=== PATIENT | female | born 1970 | race African-American/Black ===

== ENCOUNTER → 2020-08-08 14:35 | Outpatient (BNVA) | payer OTHER, SELFPAY | PROVIDERS: Visit Provider Physician Assistant | DX: Z76.89 Persons encountering health services in other specified circumstances (principal) ==

== ENCOUNTER → 2020-09-06 16:09 | Outpatient (BNVA) | payer OTHER, SELFPAY | PROVIDERS: Visit Provider Surgery | DX: Z76.89 Persons encountering health services in other specified circumstances (principal) ==

== ENCOUNTER → 2020-09-11 14:08 | Outpatient (BNVA) | payer OTHER, SELFPAY | PROVIDERS: Visit Provider Dietitian, Registered | DX: Z76.89 Persons encountering health services in other specified circumstances (principal) ==

== ENCOUNTER 2020-09-15 08:56 | Outpatient (REF) | payer OTHER, SELFPAY ==
--- NOTE | 2020-09-15 09:00 | MM_ITS ---
EXAMINATION: MM SCREENING DIGITAL BREAST TOMOSYNTHESIS, BILATERAL CLINICAL INFORMATION: Screening. Asymptomatic. Anterior left biopsy 2016. The lifetime risk of breast cancer based on the Tyrer-Cuzick Model is 16%. COMPARISON: Mammography: 09/10/2019, 08/17/2018; right breast ultrasound 08/26/2018 TECHNIQUE: Digital breast tomosynthesis is performed in both the craniocaudal and mediolateral oblique views along with computer-aided detection (CAD). Synthesized 2D images are generated from the tomosynthesis. FINDINGS: There are scattered areas of fibroglandular density (ACR BI-RADS breast composition Category b). Parenchymal pattern is similar to prior exams. There is stable nodular asymmetry mid upper outer left breast and smaller stable nodule lower inner right breast. Neither breast shows interval mass or architectural abnormality. No abnormal calcifications. The axilla and skin contours are unremarkable. MM/MM tomosynthesis screening BI IMPRESSION: No mammographic evidence of malignancy. ASSESSMENT: BI-RADS 2: Benign RECOMMENDATION: Routine annual mammography screening. This patient's information was entered into a reminder system with a target due date for their next mammogram.
== END 2020-09-15 08:57 | disposition home or self-care (01) ==
LOC: HO.MAMMO 08:56
PROVIDERS: Visit Provider Obstetrics & Gynecology
DX: Z12.31 Encounter for screening mammogram for malignant neoplasm of breast (principal)
CPT/HCPCS: 77063; 77067

== ENCOUNTER → 2020-09-18 11:21 | Outpatient (BNVA) | payer OTHER, SELFPAY | PROVIDERS: Visit Provider Dietitian, Registered ==

== ENCOUNTER 2020-10-05 06:27 | Day surgery (SDC) | payer OTHER, SELFPAY ==
[2020-09-28 13:13] VITALS: BMI 32.5
--- NOTE | 2020-10-03 14:11 | HO.ANESPROP2 ---
Documented by User: Regina Andre 10/03/20 14:11 HPI - Anesthesia Eval Consult details Narrative: 50yo F for Colonoscopy PMFSH Past Medical History Medical History Arthritis Asthma Colon cancer screening History of anemia Hypertension Intestinal malabsorption following gastrectomy Obesity (BMI 30-39.9) Family History Family History Father No problems noted. Mother Sarcocystosis Afib Sister No problems noted. Sister No problems noted. Son No problems noted. Daughter No problems noted. Daughter No problems noted. Daughter No problems noted. Maternal Grandmother History of ovarian cancer Surgical History Surgical History History of breast lump/mass excision History of sleeve gastrectomy History of vocal cord polypectomy Hx of appendectomy Hx of knee surgery Hx of tonsillectomy Social History Social History Are you a primary technical healthcare consultant to a significant other at home: No Do you presently have visiting nurse or other home services: No Alcohol intake: never Smoking Status: Never smoker Use of substances other than those prescribed or required for medical reasons: No Have you been hit, kicked, punched, or otherwise hurt by someone within the past year? If so, by whom?: No Advance Directives: No Advance Directives Information Provided: No Advance Directives on File: No Recently lost weight without trying: No Meds Allergies Allergy/AdvReac Type Severity Reaction Status Date / Time SHALONDA Inhibitors Allergy Severe ANAPHYLAXIS Verified 10/05/20 06:34 [SHALONDA INHIBITORS] lisinopril Allergy Unknown Anaphylaxis Verified 08/08/20 15:02 Home Medications Medication Instructions Recorded Confirmed Type acetaminophen 325 mg capsule 325 mg PO QID PRN 08/01/20 09/28/20 History bumetanide 1 mg tablet 1 mg PO DAILY 08/01/20 09/28/20 History calcium carbonate 600 mg calcium 600 mg PO BID 08/01/20 09/28/20 History (1,500 mg) tablet levonorgestrel 20 mcg/24 hours (6 INTRAUTERINE 08/01/20 09/06/20 History yrs) 52 mg intrauterine device mecobalamin (vitamin B12) 1,000 1,000 mcg PO DAILY 08/01/20 09/28/20 History mcg chewable tablet methylcellulose (laxative) 500 mg 500 mg PO BID 08/01/20 09/28/20 History tablet sfosifix-tyl-adeko ac 400 1 tab PO DAILY 09/06/20 09/28/20 History mcg-calcium carb 500 mg-vit K1 20 mcg tablet albuterol sulfate 1 puff INHALATION Q4-6H PRN 09/28/20 09/28/20 History Exam Exam Date and Time: October 03, 2020 1411 Height,Weight and Vital Signs: Height 5 ft 6 in Weight 91.626 kg Assessment and Plan Assessment Anesthesia Assessment: Chart Reviewed Documented by User: Sharyn Acuña 10/05/20 07:22 [facility] Past Medical History Medical History Arthritis Asthma Colon cancer screening History of anemia Hypertension Intestinal malabsorption following gastrectomy Obesity (BMI 30-39.9) Family History Family History Father No problems noted. Mother Sarcocystosis Afib Sister No problems noted. Sister No problems noted. Son No problems noted. Daughter No problems noted. Daughter No problems noted. Daughter No problems noted. Maternal Grandmother History of ovarian cancer Surgical History Surgical History History of breast lump/mass excision History of sleeve gastrectomy History of vocal cord polypectomy Hx of appendectomy Hx of knee surgery Hx of tonsillectomy Social History Social History Are you a primary technical healthcare consultant to a significant other at home: No Do you presently have visiting nurse or other home services: No Alcohol intake: never Smoking Status: Never smoker Use of substances other than those prescribed or required for medical reasons: No Have you been hit, kicked, punched, or otherwise hurt by someone within the past year? If so, by whom?: No Advance Directives: No Advance Directives Information Provided: No Advance Directives on File: No Recently lost weight without trying: No Meds Allergies Allergy/AdvReac Type Severity Reaction Status Date / Time SHALONDA Inhibitors Allergy Severe ANAPHYLAXIS Verified 10/05/20 06:34 [SHALONDA INHIBITORS] lisinopril Allergy Unknown Anaphylaxis Verified 08/08/20 15:02 Home Medications Medication Instructions Recorded Confirmed Type acetaminophen 325 mg capsule 325 mg PO QID PRN 08/01/20 09/28/20 History bumetanide 1 mg tablet 1 mg PO DAILY 08/01/20 09/28/20 History calcium carbonate 600 mg calcium 600 mg PO BID 08/01/20 09/28/20 History (1,500 mg) tablet levonorgestrel 20 mcg/24 hours (6 INTRAUTERINE 08/01/20 09/06/20 History yrs) 52 mg intrauterine device mecobalamin (vitamin B12) 1,000 1,000 mcg PO DAILY 08/01/20 09/28/20 History mcg chewable tablet methylcellulose (laxative) 500 mg 500 mg PO BID 08/01/20 09/28/20 History tablet wdqogbql-hrg-bzyyb ac 400 1 tab PO DAILY 09/06/20 09/28/20 History mcg-calcium carb 500 mg-vit K1 20 mcg tablet albuterol sulfate 1 puff INHALATION Q4-6H PRN 09/28/20 09/28/20 History Exam Airway Mallampati Class: II Neck ROM: Full Denture: Upper Assessment and Plan Assessment Anesthesia Assessment: Anesthesia Plan Discussed and Chart Reviewed Final Anesthetic Review NPO: Yes ASA Class: II Final Preanesthetic Review: No Changes in Pt Med Stat, Meds/Allgs Chart Reviewed, Consent Obtained/Reviewed and Anes Risks/Benef Reviewed Patient Risk: Low Procedure Risk: Low Assessment/Block/Sedation in SS: Assess/Block/Sedation-SS Anesthetic Plan Anesthetic Plan: MAC: Disposition: Standard PACU
[2020-10-05 06:59] VITALS: BP 147/91; PULSE 64; RESP 16; TEMP 36.8; O2SAT 99
[2020-10-05] MEDS: Lactated Ringers 1,000 ML 100 ML IVCONT (07:12)
--- NOTE | 2020-10-05 07:22 | MHC.SHP ---
Pre-Procedural Eval Section B Chief Complaint: screening Allergies: Allergies Allergy/AdvReac Type Severity Reaction Status Date / Time SHALONDA Inhibitors Allergy Severe ANAPHYLAXIS Verified 10/05/20 06:34 [SHALONDA INHIBITORS] lisinopril Allergy Unknown Anaphylaxis Verified 08/08/20 15:02 Plan I have reviewed the history and physical and performed a pertinent physical examination on my patient. No changes have occurred unless specified.
--- NOTE | 2020-10-05 07:50 | HO.ANESPROP2 ---
[facility] Past Medical History Medical History Arthritis Asthma Colon cancer screening History of anemia Hypertension Intestinal malabsorption following gastrectomy Obesity (BMI 30-39.9) Family History Family History Father No problems noted. Mother Sarcocystosis Afib Sister No problems noted. Sister No problems noted. Son No problems noted. Daughter No problems noted. Daughter No problems noted. Daughter No problems noted. Maternal Grandmother History of ovarian cancer Surgical History Surgical History History of breast lump/mass excision History of sleeve gastrectomy History of vocal cord polypectomy Hx of appendectomy Hx of knee surgery Hx of tonsillectomy Social History Social History Are you a primary youth care worker to a significant other at home: No Do you presently have visiting nurse or other home services: No Alcohol intake: never Smoking Status: Never smoker Use of substances other than those prescribed or required for medical reasons: No Have you been hit, kicked, punched, or otherwise hurt by someone within the past year? If so, by whom?: No Advance Directives: No Advance Directives Information Provided: No Advance Directives on File: No Recently lost weight without trying: No Meds Allergies Allergy/AdvReac Type Severity Reaction Status Date / Time SHALONDA Inhibitors Allergy Severe ANAPHYLAXIS Verified 10/05/20 06:34 [SHALONDA INHIBITORS] lisinopril Allergy Unknown Anaphylaxis Verified 08/08/20 15:02 Home Medications Medication Instructions Recorded Confirmed Type acetaminophen 325 mg capsule 325 mg PO QID PRN 08/01/20 09/28/20 History bumetanide 1 mg tablet 1 mg PO DAILY 08/01/20 09/28/20 History calcium carbonate 600 mg calcium 600 mg PO BID 08/01/20 09/28/20 History (1,500 mg) tablet levonorgestrel 20 mcg/24 hours (6 INTRAUTERINE 08/01/20 09/06/20 History yrs) 52 mg intrauterine device mecobalamin (vitamin B12) 1,000 1,000 mcg PO DAILY 08/01/20 09/28/20 History mcg chewable tablet methylcellulose (laxative) 500 mg 500 mg PO BID 08/01/20 09/28/20 History tablet nmqtahaz-okx-jcwss ac 400 1 tab PO DAILY 09/06/20 09/28/20 History mcg-calcium carb 500 mg-vit K1 20 mcg tablet albuterol sulfate 1 puff INHALATION Q4-6H PRN 09/28/20 09/28/20 History Exam Exam Date and Time: October 05, 2020 0750 Height,Weight and Vital Signs: Height 5 ft 6 in Weight 91.626 kg Last Vital Signs Temp 98.2 F 10/05/20 06:59 Pulse 64 10/05/20 06:59 Resp 16 10/05/20 06:59 BP 147/91 H 10/05/20 06:59 Pulse Ox 99 10/05/20 06:59 Airway Mallampati Class: II TM Dist: >3cm Neck ROM: Full Assessment and Plan Assessment Anesthesia Assessment: Anesthesia Plan Discussed and Chart Reviewed Final Anesthetic Review NPO: Yes ASA Class: III Final Preanesthetic Review: No Changes in Pt Med Stat, Meds/Allgs Chart Reviewed, Consent Obtained/Reviewed and Anes Risks/Benef Reviewed Patient Risk: Intermediate Procedure Risk: Low Assessment/Block/Sedation in SS: Assess/Block/Sedation-SS Anesthetic Plan Anesthetic Plan: MAC: Disposition: Standard PACU
[2020-10-05 07:57] VITALS: BP 132/80; PULSE 65; RESP 16; TEMP 36.2; O2SAT 100
--- NOTE | 2020-10-05 07:57 | PM.OP ---
Brief Operative Note Date of Service: 10/05/20 Pre-op diagnosis: COLON CA SCREEN Post-op diagnosis: other (HEMORRHOIDS) Procedure: colonoscopy Surgeon: Dustin Nicolas MD Anesthesia: MAC Estimated blood loss (mL): 0 Condition: stable Disposition: PACU
--- NOTE | 2020-10-05 07:57 | W.PM.OPN ---
Operative Note Operative Note Date of Service: 10/05/20 Narrative: PROCEDURE: COLONOSCOPY PREOP DIAGNOSIS: COLON CANCER SCREENING POSTOP DIAGNOSIS: HEMORRHOIDS, OTHERWISE NORMAL COLONOSCOPY FINDINGS SURGEON: KAE TRAVIS MD The patient is a 50-year-old female for screening colonoscopy. She had understood the technique the procedure. She was aware of the risks, benefits and alternatives She was brought to the operating room and placed in left lateral decubitus position under monitored anesthesia care. A surgical time-out was done. A full digital rectal was done. There were no palpable anal lesions. The tip of the Olympus colonoscope was gently introduced through the anal orifice and advanced with insufflation all the way to the cecum. The cecum was intubated. The cecum was identified by visualization of the ileocecal valve as well as the appendiceal orifice. The cecal mucosa was unremarkable. The scope was gradually withdrawn with careful examination of the entire colonic mucosa being done with scope withdrawal. The patient had good bowel prep so it was unlikely that any lesion may have been missed. The rectum was reached and there were no lesions seen. The anal canal was unremarkable. She did have external hemorrhoids which were prominent The scope was then withdrawn completely with desufflation. The patient tolerated the procedure well. There were no immediate complications noted. Estimated blood loss was 0. She falls at average risk for colon cancer so her next colonoscopy may be in the next 10 years.
--- NOTE | 2020-10-05 08:08 | PC.NURSE ---
0800 AWAKE ALERT SIT UPRIGHT START PO FLUIDS
[2020-10-05 08:12] VITALS: BP 162/90; PULSE 60; RESP 16; O2SAT 100
--- NOTE | 2020-10-05 08:35 | HO.POSTANES ---
Post Anesthesia Evaluation Post Anesthesia Evaluation Vital Signs: Vital Signs Temp Pulse Resp BP Pulse Ox 10/05/20 08:12 60 16 162/90 H 100 10/05/20 07:57 97.1 F 65 16 132/80 100 10/05/20 06:59 98.2 F 64 16 147/91 H 99 Anesthesia: Monitored Mental Status: Awake Pain Control: Satisfactory Nausea/Vomiting: None Hydration: Adequate Anesthesia-Related Issues: No Anes. Related Issues
== END 2020-10-05 08:42 | disposition home or self-care (01) ==
PROVIDERS: Visit Provider Surgery
PROC: 0DJD8ZZ Inspection of Lower Intestinal Tract, Via Natural or Artificial Opening Endoscopic (ICD-10-PCS; CPT 45378; principal; 2020-10-05 08:30)
DX: Z12.11 Encounter for screening for malignant neoplasm of colon (principal); K64.4 Residual hemorrhoidal skin tags; I10 Essential (primary) hypertension; Z79.899 Other long term (current) drug therapy; Z88.8 Allergy status to other drugs, medicaments and biological substances; Z90.3 Acquired absence of stomach [part of]
CPT/HCPCS: 45378

== ENCOUNTER → 2020-10-16 08:28 | Outpatient (BNVA) | payer OTHER, SELFPAY | PROVIDERS: Visit Provider Dietitian, Registered ==

== ENCOUNTER → 2020-10-18 13:50 | Outpatient (BNVA) | payer OTHER, SELFPAY | PROVIDERS: PCP Internal Medicine; Visit Provider Surgery ==

== ENCOUNTER 2020-11-03 09:57 | Outpatient (REF) | payer OTHER, SELFPAY ==
[2020-11-03 10:49] LABS: MANUAL DIFF FLAG NO
[2020-11-03 11:09] LABS: Basophils Percent Auto 0.3 % (0-2); Eosinophils Absolute Auto 0.2 X10*3/uL (0.0-0.4); Eosinophils Percent Auto 4.5 % (0-4); Hematocrit 32.9 % (37-47); Hemoglobin 10.6 g/dl (12.0-16.0); Imm Gran Abs Auto 0.01 X10*3/uL (0.00-0.03); Imm Gran Pct Auto 0.3 % (0.0-0.4); Lymphocytes Absolute Auto 1.4 X10*3/uL (1.2-4.9); Mean Corpuscular HGB Conc 32.2 g/dl (31.0-35.0); Mean Corpuscular Hemoglobin 30.2 pg (27.0-33.0); Mean Corpuscular Volume 93.7 fL (80-98); Mean Platelet Volume 10.4 fL (9.4-12.3); Monocytes Absolute Auto 0.2 X10*3/uL (0.1-1.2); Monocytes Percent Auto 6.3 % (2-11); Neutrophils Percent Auto 52.6 % (45-73); Platelet Count 160 X10*3/uL (160-400); Red Blood Count 3.51 X10*6/uL (4.20-5.50); Red Cell Distribution Width 11.6 % (11.0-16.0); White Blood Count 3.8 X10*3/uL (4.8-10.8)
[2020-11-03 11:11] LABS: Estimated Average Glucose 105 mg/dL; Hemoglobin A1c % 5.3 %
[2020-11-03 11:46] LABS: Alanine Aminotransferase 13 U/L (0-31); Alkaline Phosphatase 57 U/L (39-117); Anion Gap 11 (12-20); Aspartate Amino Transferase 21 U/L (5-31); Bilirubin Total 0.5 mg/dL (0.0-1.0); Blood Urea Nitrogen 15 mg/dL (9-16); C Reactive Protein 0.57 mg/dL (< or = 0.50); Calcium 9.3 mg/dL (8.4-10.2); Carbon Dioxide 29 mmol/L (22-29); Chloride 107 mmol/L (96-108); Cholesterol 167 mg/dL; Estimated Glomerular Filt Rate > 60; Glucose Fasting 80 mg/dL (60-99); HDL Cholesterol 55 mg/dL; Iron 85 mcg/dL (30-160); LDL Cholesterol Calculated 102 mg/dl; Percent Iron Saturation 29 % (15-50); Potassium 4.3 mmol/L (3.3-5.1); Sodium 143 mmol/L (135-145); Total Iron Binding Capacity 291 mcg/dL (228-428); Total Protein 8.1 g/dL (6.5-8.0); Triglycerides 52 mg/dL; Unsaturated Iron Binding 206 ug/dL
[2020-11-03 11:48] LABS: Ferritin 153 ng/mL (10-250); TSH reflex Free T4 0.72 uIU/mL (0.32-4.0)
[2020-11-05 04:46] LABS: Folate 19.3 ng/mL (> or = 4.0); Vitamin B12 997 pg/mL (200-900)
[2020-11-05 16:12] LABS: Calcium (PTHI) 9.8 mg/dL (8.6-10.4); PTHI 25 pg/mL (14-64)
[2020-11-05 22:07] LABS: Insulin Level Total 5.3 uIU/mL
[2020-11-06 05:12] LABS: Zinc 66 mcg/dL (60-130)
[2020-11-07 17:47] LABS: Vitamin A 43 mcg/dL (38-98)
[2020-11-11 12:57] LABS: Vitamin B1 13 nmol/L (8-30)
== END 2020-11-03 09:58 | disposition home or self-care (01) ==
LOC: HO.LAB 09:57
PROVIDERS: PCP Internal Medicine; Visit Provider Physician Assistant
DX: K91.2 Postsurgical malabsorption, not elsewhere classified (principal); E66.01 Morbid (severe) obesity due to excess calories; Z90.3 Acquired absence of stomach [part of]
CPT/HCPCS: 36415; 80053; 80061; 82306; 82607; 82728; 82746; 83036; 83525; 83540; 83970; 84425; 84443; 84590; 84630; 85025; 86140

== ENCOUNTER → 2020-11-06 08:23 | Outpatient (BNVA) | payer OTHER, SELFPAY | PROVIDERS: PCP Internal Medicine; Visit Provider Surgery ==

== ENCOUNTER 2020-11-19 11:36 | Outpatient (REF) | payer OTHER, SELFPAY ==
[2020-11-19 12:00] LABS: MANUAL DIFF FLAG NO
[2020-11-19 12:06] LABS: Basophils Percent Auto 0.3 % (0-2); Eosinophils Absolute Auto 0.1 X10*3/uL (0.0-0.4); Eosinophils Percent Auto 3.5 % (0-4); Hemoglobin 10.4 g/dl (12.0-16.0); Imm Gran Abs Auto 0.01 X10*3/uL (0.00-0.03); Imm Gran Pct Auto 0.3 % (0.0-0.4); Lymphocytes Absolute Auto 1.4 X10*3/uL (1.2-4.9); Mean Corpuscular HGB Conc 31.5 g/dl (31.0-35.0); Mean Corpuscular Hemoglobin 29.6 pg (27.0-33.0); Mean Platelet Volume 10.6 fL (9.4-12.3); Monocytes Absolute Auto 0.3 X10*3/uL (0.1-1.2); Monocytes Percent Auto 8.4 % (2-11); Neutrophils Absolute Auto 1.3 X10*3/uL (2.0-8.3); Neutrophils Percent Auto 41.5 % (45-73); Platelet Count 139 X10*3/uL (160-400); Red Blood Count 3.51 X10*6/uL (4.20-5.50); Red Cell Distribution Width 11.9 % (11.0-16.0); White Blood Count 3.1 X10*3/uL (4.8-10.8)
[2020-11-19 12:34] LABS: Alanine Aminotransferase 13 U/L (0-31); Albumin Level 3.9 g/dL (3.5-5.0); Alkaline Phosphatase 51 U/L (39-117); Anion Gap 11 (12-20); Aspartate Amino Transferase 19 U/L (5-31); Bilirubin Total 0.4 mg/dL (0.0-1.0); Blood Urea Nitrogen 14 mg/dL (9-16); Calcium 9.3 mg/dL (8.4-10.2); Carbon Dioxide 29 mmol/L (22-29); Chloride 109 mmol/L (96-108); Cholesterol 174 mg/dL; Estimated Glomerular Filt Rate > 60; Glucose Fasting 80 mg/dL (60-99); HDL Cholesterol 55 mg/dL; LDL Cholesterol Calculated 111 mg/dl; Potassium 4.5 mmol/L (3.3-5.1); Sodium 144 mmol/L (135-145); Total Protein 7.7 g/dL (6.5-8.0); Triglycerides 44 mg/dL
== END 2020-11-19 11:37 | disposition home or self-care (01) ==
LOC: HO.LAB 11:36
PROVIDERS: PCP Internal Medicine; Visit Provider Nurse Practitioner Family
DX: I10 Essential (primary) hypertension (principal)
CPT/HCPCS: 36415; 80053; 80061; 85025

== ENCOUNTER 2020-11-22 14:36 | Outpatient (REF) | payer OTHER, SELFPAY ==
--- NOTE | ~2020-11-22 | XR_ITS ---
EXAMINATION: XR CERVICAL SPINE XR LUMBAR SPINE CLINICAL INFORMATION: Low back pain. COMPARISON: None TECHNIQUE: 3 views lumbar spine and 3 views cervical spine. FINDINGS: LUMBAR SPINE: There is maintained lumbar lordosis. There is likely positional levoscoliosis. The vertebral heights, alignment and disc heights are normal. There is no visible acute fracture, dislocation or lytic process. The SI joints are symmetrical. Incidentally noted is an IUD in the pelvis. The soft tissues are normal. CERVICAL SPINE: There is maintained cervical lordosis. The vertebral heights, alignment and disc heights are normal. No visible acute fracture, dislocation or lytic process seen. The prevertebral soft tissues are normal. XR/XR cervical spine 2V IMPRESSION: Unremarkable lumbar spine exam except for positional levoscoliosis. Unremarkable cervical spine exam.
--- NOTE | ~2020-11-22 | XR_ITS ---
EXAMINATION: XR CERVICAL SPINE XR LUMBAR SPINE CLINICAL INFORMATION: Low back pain. COMPARISON: None TECHNIQUE: 3 views lumbar spine and 3 views cervical spine. FINDINGS: LUMBAR SPINE: There is maintained lumbar lordosis. There is likely positional levoscoliosis. The vertebral heights, alignment and disc heights are normal. There is no visible acute fracture, dislocation or lytic process. The SI joints are symmetrical. Incidentally noted is an IUD in the pelvis. The soft tissues are normal. CERVICAL SPINE: There is maintained cervical lordosis. The vertebral heights, alignment and disc heights are normal. No visible acute fracture, dislocation or lytic process seen. The prevertebral soft tissues are normal. XR/XR lumbar spine 2-3V IMPRESSION: Unremarkable lumbar spine exam except for positional levoscoliosis. Unremarkable cervical spine exam.
== END 2020-11-22 14:37 | disposition home or self-care (01) ==
LOC: HO.XRAY 14:36
PROVIDERS: PCP Internal Medicine; Visit Provider Nurse Practitioner Family
DX: S16.1XXA Strain of muscle, fascia and tendon at neck level, initial encounter (principal); M54.5 Low back pain
CPT/HCPCS: 72040; 72100

== ENCOUNTER 2020-12-14 15:55 | Outpatient (REF) | payer OTHER, SELFPAY ==
--- NOTE | ~2020-12-14 | CT_ITS ---
EXAMINATION: CT CHEST WITHOUT CONTRAST CLINICAL INFORMATION: Solitary pulmonary nodule. COMPARISON: Chest x-ray 08/30/2018 TECHNIQUE: Multidetector volumetric CT imaging of the chest was done. Axial MIP volume rendering provided. Sagittal and coronal reformatted images were obtained. This CT examination was performed using dose optimization techniques as appropriate, variously including the following: *Automated exposure control *Adjustment of mA and/or kV according to patient size (this includes techniques or standardized protocols for targeted exams where dose is matched to indication/reason for exam; i.e. extremities or head) *Use of iterative reconstruction technique DLP: 183 mGy-cm FINDINGS: ELA TEACHER: Unremarkable. LUNGS: The lungs are well-expanded and clear. There is a 4 mm nodule right lower lobe superior segment axial image 31/4, 2 mm calcified nodule left lower lobe superior segment image 31/4, 2 mm and a 1 mm fissural nodule right major fissure axial image 264/6. MEDIASTINUM: The thyroid lobes are symmetric and normal. The central trachea and bronchi are widely patent. The heart size and the great vessels are normal caliber. There is no pericardial effusion. No abnormal size mediastinal or hilar lymph nodes seen. PLEURA: There is no pleural effusion. No pleural mass or thickening. AXILLA: There are small bilateral axillary lymph nodes. The chest wall is unremarkable. UPPER ABDOMEN: Visualized liver, spleen, pancreas, and bilateral adrenal glands are unremarkable. Post gastric reduction surgical changes are noted. OSSEOUS STRUCTURES: There are no lytic or sclerotic processes seen. There is mild spondylosis throughout the lumbar spine. CT/CT chest wo con IMPRESSION: Calcified and noncalcified nodules, as described above, the largest measuring 4 mm. There are intrafissural right-sided lymph nodes. If there are no clinical risk factors, no followup is needed. If patient has high clinical risk factors, a followup in 12 months can be performed.
== END 2020-12-14 15:56 | disposition home or self-care (01) ==
LOC: HO.CT 15:55
PROVIDERS: PCP Internal Medicine; Visit Provider Internal Medicine
DX: R91.1 Solitary pulmonary nodule (principal)
CPT/HCPCS: 71250

== ENCOUNTER 2021-07-01 14:35 | Outpatient (REF) | payer OTHER, SELFPAY ==
--- NOTE | ~2021-07-01 | US_ITS ---
EXAMINATION: US ABDOMEN COMPLETE CLINICAL INFORMATION: Right upper quadrant abdominal pain. COMPARISON: CT chest 12/14/2020. Ultrasound abdomen complete with elastography 05/18/2018 TECHNIQUE: Real-time imaging of the abdominal viscera. FINDINGS: PANCREAS: Normal. ABDOMINAL AORTA: The proximal, mid, and distal segments are normal in caliber. INFERIOR VENA CAVA: Visualized portions are normal. LIVER: Normal. The liver is normal in size. The liver contour is normal. Parenchymal echogenicity is normal. No focal hepatic lesion. There is no intrahepatic biliary duct dilatation seen. GALLBLADDER: There is some tenderness to palpation overlying the gallbladder during the study. The gallbladder is physiologically distended without evidence of stones, sludge, polyps, wall thickening or pericholecystic fluid. COMMON BILE DUCT: Normal in caliber measuring 0.40 cm in diameter. RIGHT KIDNEY: Normal. No hydronephrosis. No renal calculi or focal parenchymal lesions. The kidney measures 10.6 cm in maximum dimension. LEFT KIDNEY: Normal. No hydronephrosis. No renal calculi or focal parenchymal lesions. The kidney measures 11.2 cm in maximum dimension. SPLEEN: Normal. The spleen measures 9.6 cm in maximum dimension. FREE FLUID: None. US/US abdomen complete IMPRESSION: Tenderness to palpation overlying the gallbladder however no specific ultrasound findings to suggest acute cholecystitis.
== END 2021-07-01 14:36 | disposition home or self-care (01) ==
LOC: HO.HMGCX 14:35
PROVIDERS: PCP Internal Medicine; Visit Provider Internal Medicine
DX: R79.89 Other specified abnormal findings of blood chemistry (principal); R10.11 Right upper quadrant pain
CPT/HCPCS: 76700

== ENCOUNTER 2021-09-21 09:41 | Outpatient (REF) | payer OTHER, SELFPAY ==
--- NOTE | ~2021-09-21 | MM_ITS ---
EXAMINATION: MM SCREENING DIGITAL BREAST TOMOSYNTHESIS, BILATERAL CLINICAL INFORMATION: Screening. Asymptomatic. The lifetime risk of breast cancer based on the Tyrer-Cuzick Model is 7%. COMPARISON: Mammography: 09/15/2020, 09/10/2019, 08/17/2018 TECHNIQUE: Digital breast tomosynthesis is performed in both the craniocaudal and mediolateral oblique views along with computer-aided detection (CAD). Synthesized 2D images are generated from the tomosynthesis. FINDINGS: There are scattered areas of fibroglandular density (ACR BI-RADS breast composition Category b). There are no significant masses, abnormal calcifications, or other abnormalities. Again, there is stable oval focal nodular asymmetry left breast mid upper outer quadrant and stable nodularity central inner right breast. No developing density. The axilla and skin contours are unremarkable. No significant changes from prior exams. MM/MM tomosynthesis screening BI IMPRESSION: No significant changes from prior exams. ASSESSMENT: BI-RADS 2: Benign RECOMMENDATION: Routine annual mammography screening. This patient's information was entered into a reminder system with a target due date for their next mammogram.
== END 2021-09-21 09:42 | disposition home or self-care (01) ==
LOC: HO.MAMMO 09:41
PROVIDERS: Visit Provider Obstetrics & Gynecology
DX: Z12.31 Encounter for screening mammogram for malignant neoplasm of breast (principal)
CPT/HCPCS: 77063; 77067

== ENCOUNTER 2021-12-07 09:25 | Outpatient (REF) | payer OTHER, SELFPAY ==
[2021-12-07 09:56] LABS: Hematocrit 32.5 % (37.0-47.0); Hemoglobin 10.3 g/dl (12.0-16.0); Mean Corpuscular HGB Conc 31.7 g/dl (31.0-35.0); Mean Corpuscular Hemoglobin 29.2 pg (27.0-33.0); Mean Corpuscular Volume 92.1 fL (80.0-98.0); Platelet Count 152 X10*3/uL (160-400); Red Blood Count 3.53 X10*6/uL (4.20-5.50); Red Cell Distribution Width 12.6 % (11.0-16.0); White Blood Count 3.3 X10*3/uL (4.8-10.8)
[2021-12-07 10:30] LABS: Alanine Aminotransferase 15 U/L (0-31); Alkaline Phosphatase 62 U/L (39-117); Anion Gap 10 (12-20); Aspartate Amino Transferase 19 U/L (5-31); Bilirubin Direct 0.2 mg/dL (0.0-0.5); Bilirubin Total 0.4 mg/dL (0.0-1.0); Blood Urea Nitrogen 17 mg/dL (9-16); Calcium 9.2 mg/dL (8.4-10.2); Carbon Dioxide 26 mmol/L (22-29); Chloride 108 mmol/L (96-108); Cholesterol 188 mg/dL; Estimated Glomerular Filt Rate > 60; Glucose Random 77 mg/dL (60-115); HDL Cholesterol 54 mg/dL; LDL Cholesterol Calculated 125 mg/dl; Sodium 140 mmol/L (135-145); Total Protein 7.9 g/dL (6.5-8.0); Triglycerides 45 mg/dL
[2021-12-07 10:37] LABS: Appearance Urine CLEAR; Color Urine YELLOW; Glucose Urine UA NEG (NEG); Leukocyte Esterase Urine NEG (NEG); Nitrite Urine NEG (NEG); Specific Gravity - Urine 1.015 (1.005-1.025); Urine Blood NEG (NEG); Urine Ketones NEG (NEG); Urine Protein TRACE MG/DL (NEG-TRACE)
[2021-12-07 10:53] LABS: Thyroid Stimulating Hormone 0.89 uIU/mL (0.32-4.0)
== END 2021-12-07 09:26 | disposition home or self-care (01) ==
LOC: HO.LAB 09:25
PROVIDERS: PCP Internal Medicine; Visit Provider Internal Medicine
DX: I10 Essential (primary) hypertension (principal)
CPT/HCPCS: 36415; 80048; 80061; 80076; 81003; 84443; 85027

== ENCOUNTER 2022-08-07 15:44 | Outpatient (REF) | payer OTHER, SELFPAY ==
[2022-08-07 16:55] LABS: Influenza A PCR NEGATIVE (Negative); Influenza B PCR NEGATIVE (Negative); Resp Syncy Virus RNA Qual PCR NEGATIVE (Negative); SARS COV2 PCR INHOUSE NEGATIVE (Negative)
== END 2022-08-07 15:45 | disposition home or self-care (01) ==
LOC: HO.LAB 15:44
PROVIDERS: Visit Provider Internal Medicine
DX: Z20.822 Contact with and (suspected) exposure to COVID-19 (principal); R43.9 Unspecified disturbances of smell and taste; I10 Essential (primary) hypertension
CPT/HCPCS: 0241U

== ENCOUNTER 2022-09-27 09:51 | Outpatient (REF) | payer OTHER, SELFPAY ==
--- NOTE | ~2022-09-27 | MM_ITS ---
EXAMINATION: MM SCREENING DIGITAL BREAST TOMOSYNTHESIS, BILATERAL CLINICAL INFORMATION: Screening. Asymptomatic. The lifetime risk of breast cancer based on the Tyrer-Cuzick Model is 8%. COMPARISON: Mammography: 09/21/2021, 09/15/2020, 09/10/2019, 08/17/2018 TECHNIQUE: Digital breast tomosynthesis is performed in both the craniocaudal and mediolateral oblique views along with computer-aided detection (CAD). Synthesized 2D images are generated from the tomosynthesis. FINDINGS: There are scattered areas of fibroglandular density (ACR BI-RADS breast composition Category b). There are scattered round and oval asymmetries similar to prior studies. There is no developing density or architectural abnormality. There are scattered bilateral coarse and dermal calcifications. Tightly grouped punctate round calcifications and a small stable nodule again seen posterior central 6:00 left breast. The axilla and skin contours are unremarkable. No significant changes. MM/MM tomosynthesis screening BI IMPRESSION: No significant changes from prior exam. ASSESSMENT: BI-RADS 2: Benign RECOMMENDATION: Routine annual mammography screening. This patient's information was entered into a reminder system with a target due date for their next mammogram.
[2022-09-27 10:39] LABS: Hematocrit 33.9 % (37.0-47.0); Hemoglobin 10.6 g/dl (12.0-16.0); Mean Corpuscular HGB Conc 31.3 g/dl (31.0-35.0); Mean Corpuscular Hemoglobin 28.8 pg (27.0-33.0); Mean Corpuscular Volume 92.1 fL (80.0-98.0); Platelet Count 161 X10*3/uL (160-400); Red Blood Count 3.68 X10*6/uL (4.20-5.50); Red Cell Distribution Width 12.7 % (11.0-16.0)
[2022-09-27 11:35] LABS: Alanine Aminotransferase 12 U/L (0-31); Albumin Level 3.9 g/dL (3.5-5.0); Alkaline Phosphatase 72 U/L (39-117); Anion Gap 9 (12-20); Aspartate Amino Transferase 19 U/L (5-31); Bilirubin Direct < 0.2 mg/dL (0.0-0.5); Bilirubin Total 0.4 mg/dL (0.0-1.0); Blood Urea Nitrogen 12 mg/dL (9-16); Calcium 9.3 mg/dL (8.4-10.2); Carbon Dioxide 27 mmol/L (22-29); Chloride 110 mmol/L (96-108); Cholesterol 183 mg/dL; Estimated Glomerular Filt Rate > 60; Glucose Random 81 mg/dL (60-115); HDL Cholesterol 49 mg/dL; LDL Cholesterol Calculated 123 mg/dl; Potassium 3.9 mmol/L (3.3-5.1); Sodium 142 mmol/L (135-145); Total Protein 7.8 g/dL (6.5-8.0); Triglycerides 58 mg/dL
== END 2022-09-27 09:52 | disposition home or self-care (01) ==
LOC: HO.MAMMO 09:51
PROVIDERS: PCP Internal Medicine; Visit Provider Internal Medicine
DX: Z12.31 Encounter for screening mammogram for malignant neoplasm of breast (principal); I10 Essential (primary) hypertension
CPT/HCPCS: 36415; 77063; 77067; 80048; 80061; 80076; 85027

== ENCOUNTER 2023-02-26 15:19 | Outpatient (AMB) | payer OTHER, SELFPAY ==
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
[2023-02-26 15:34] VITALS: BP 130/80; PULSE 83; O2SAT 98; BMI 37.3
== END 2023-02-26 16:12 | disposition home or self-care (01) ==
PROVIDERS: PCP Internal Medicine; Visit Provider Internal Medicine
DX: Z00.00 Encounter for general adult medical examination without abnormal findings (principal)
CPT/HCPCS: 99396

== ENCOUNTER 2023-05-21 15:04 | Outpatient (AMB) | payer OTHER, SELFPAY ==
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
[2023-05-21 15:11] VITALS: BP 124/72; PULSE 62; O2SAT 99; BMI 36.7
== END 2023-05-21 15:58 | disposition home or self-care (01) ==
PROVIDERS: Visit Provider Internal Medicine
DX: I10 Essential (primary) hypertension (principal)
CPT/HCPCS: 99214

== ENCOUNTER 2023-07-31 08:27 | Outpatient (AMB) | payer OTHER, SELFPAY ==
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
[2023-07-31 08:46] VITALS: BP 150/65; PULSE 74; TEMP 36.4; O2SAT 99; BMI 36.4
== END 2023-07-31 09:10 | disposition home or self-care (01) ==
PROVIDERS: PCP Internal Medicine; Visit Provider Physician Assistant
DX: E66.01 Morbid (severe) obesity due to excess calories (principal); I10 Essential (primary) hypertension
CPT/HCPCS: 99214

== ENCOUNTER → 2023-07-31 08:27 | Outpatient (BNVA) | payer OTHER, SELFPAY | PROVIDERS: PCP Internal Medicine; Visit Provider Physician Assistant ==

== ENCOUNTER 2023-08-14 10:00 | Outpatient (AMB) | payer OTHER, SELFPAY ==
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
[2023-08-14 10:26] VITALS: BMI 36.5
== END 2023-08-14 10:40 | disposition home or self-care (01) ==
LOC: HO.HBS 10:12
PROVIDERS: PCP Internal Medicine; Visit Provider Physician Assistant
DX: E66.01 Morbid (severe) obesity due to excess calories (principal); Z90.3 Acquired absence of stomach [part of]
CPT/HCPCS: 99214

== ENCOUNTER → 2023-08-14 10:00 | Outpatient (BNVA) | payer OTHER, SELFPAY | PROVIDERS: PCP Internal Medicine; Visit Provider Physician Assistant ==

== ENCOUNTER 2023-08-15 08:29 | Outpatient (REF) | payer OTHER, SELFPAY ==
[2023-08-15 09:28] LABS: MANUAL DIFF FLAG NO
[2023-08-15 10:20] LABS: Basophils Percent Auto 0.3 % (0-2); Eosinophils Absolute Auto 0.1 X10*3/uL (0.0-0.4); Eosinophils Percent Auto 3.3 % (0-4); Hematocrit 33.8 % (37.0-47.0); Hemoglobin 10.6 g/dl (12.0-16.0); Imm Gran Abs Auto 0.01 X10*3/uL (0.00-0.03); Imm Gran Pct Auto 0.3 % (0.0-0.4); Lymphocytes Absolute Auto 1.2 X10*3/uL (1.2-4.9); Lymphocytes Percent Auto 32.5 % (20-40); Mean Corpuscular HGB Conc 31.4 g/dl (31.0-35.0); Mean Corpuscular Hemoglobin 28.9 pg (27.0-33.0); Mean Corpuscular Volume 92.1 fL (80.0-98.0); Mean Platelet Volume 10.8 fL (9.4-12.3); Monocytes Absolute Auto 0.3 X10*3/uL (0.1-1.2); Monocytes Percent Auto 7.7 % (2-11); Neutrophils Percent Auto 55.9 % (45-73); Platelet Count 165 X10*3/uL (160-400); Red Blood Count 3.67 X10*6/uL (4.20-5.50); Red Cell Distribution Width 12.3 % (11.0-16.0); White Blood Count 3.6 X10*3/uL (4.8-10.8)
[2023-08-15 10:22] LABS: Hematocrit 33.4 % (37.0-47.0); Hemoglobin 10.5 g/dl (12.0-16.0); Mean Corpuscular HGB Conc 31.4 g/dl (31.0-35.0); Mean Corpuscular Hemoglobin 29.3 pg (27.0-33.0); Mean Corpuscular Volume 93.3 fL (80.0-98.0); Mean Platelet Volume 10.8 fL (9.4-12.3); Platelet Count 164 X10*3/uL (160-400); Red Blood Count 3.58 X10*6/uL (4.20-5.50); Red Cell Distribution Width 12.1 % (11.0-16.0); White Blood Count 3.8 X10*3/uL (4.8-10.8)
[2023-08-15 10:44] LABS: Alanine Aminotransferase 13 U/L (0-31); Albumin Level 3.9 g/dL (3.5-5.0); Alkaline Phosphatase 70 U/L (39-117); Anion Gap 13 (12-20); Aspartate Amino Transferase 20 U/L (5-31); Bilirubin Total 0.3 mg/dL (0.0-1.0); Blood Urea Nitrogen 12 mg/dL (9-16); C Reactive Protein 1.08 mg/dL (< or = 0.50); Calcium 9.5 mg/dL (8.4-10.2); Carbon Dioxide 26 mmol/L (22-29); Chloride 110 mmol/L (96-108); Cholesterol 155 mg/dL (<200); Estimated Glomerular Filt Rate > 60; Glucose Random 84 mg/dL (60-115); HDL Cholesterol 50 mg/dL (>40); Iron 45 mcg/dL (30-160); LDL Cholesterol Calculated 93 mg/dL (<100); Percent Iron Saturation 20 % (15-50); Potassium 3.9 mmol/L (3.3-5.1); Sodium 145 mmol/L (135-145); Total Iron Binding Capacity 224 mcg/dL (228-428); Total Protein 8.4 g/dL (6.5-8.0); Triglycerides 61 mg/dL (<150); Unsaturated Iron Binding 179 ug/dL
[2023-08-15 10:45] LABS: Alanine Aminotransferase 12 U/L (0-31); Albumin Level 3.8 g/dL (3.5-5.0); Alkaline Phosphatase 71 U/L (39-117); Anion Gap 11 (12-20); Bilirubin Direct 0.1 mg/dL (0.0-0.5); Bilirubin Total 0.3 mg/dL (0.0-1.0); Blood Urea Nitrogen 12 mg/dL (9-16); Calcium 9.5 mg/dL (8.4-10.2); Carbon Dioxide 27 mmol/L (22-29); Chloride 110 mmol/L (96-108); Cholesterol 156 mg/dL (<200); Estimated Average Glucose 105 mg/dL; Estimated Glomerular Filt Rate > 60; Glucose Random 84 mg/dL (60-115); HDL Cholesterol 49 mg/dL (>40); Hemoglobin A1c % 5.3 % (<6.0); LDL Cholesterol Calculated 95 mg/dL (<100); Potassium 3.8 mmol/L (3.3-5.1); Sodium 144 mmol/L (135-145); Total Protein 8.4 g/dL (6.5-8.0); Triglycerides 63 mg/dL (<150)
[2023-08-15 11:05] LABS: Aspartate Amino Transferase 19 U/L (5-31); Thyroid Stimulating Hormone 1.35 uIU/mL (0.32-4.0)
[2023-08-15 11:06] LABS: Ferritin 137 ng/mL (10-250); Insulin 5 uU/mL (2-29); Vitamin D 25-OH Total 28.7 ng/mL (>30)
[2023-08-15 11:12] LABS: Folate 7.4 ng/mL (> or = 4.0); Vitamin B12 407 pg/mL (200-900)
[2023-08-15 11:49] LABS: Appearance Urine Clear; Color Urine Yellow; Glucose Urine UA Negative (Negative); Leukocyte Esterase Urine Negative (Negative); Nitrite Urine Negative (Negative); Urine Blood Negative (Negative); Urine Ketones Negative (Negative); Urine Protein Trace mg/dL (Neg-Trace)
[2023-08-18 18:22] LABS: Zinc 65 mcg/dL (60-130)
[2023-08-19 03:52] LABS: Vitamin A 32 mcg/dL (38-98)
[2023-08-20 14:39] LABS: Vitamin B1 7 nmol/L (8-30)
== END 2023-08-15 08:30 | disposition home or self-care (01) ==
LOC: HO.LAB 08:29
PROVIDERS: Absent Provider Physician Assistant; PCP Internal Medicine; Visit Provider Internal Medicine
DX: E66.01 Morbid (severe) obesity due to excess calories (principal); I10 Essential (primary) hypertension
CPT/HCPCS: 36415; 80048; 80053; 80061; 80076; 81003; 82306; 82607; 82728; 82746; 83036; 83525; 83540; 84425; 84443; 84590; 84630; 85025; 85027; 86140

== ENCOUNTER 2023-09-18 09:00 | Outpatient (AMB) | payer OTHER, SELFPAY ==
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
[2023-09-18 09:09] VITALS: BMI 36.4
== END 2023-09-18 09:38 | disposition home or self-care (01) ==
LOC: HO.HBS 09:19
PROVIDERS: PCP Internal Medicine; Visit Provider Physician Assistant
DX: E66.01 Morbid (severe) obesity due to excess calories (principal); Z90.3 Acquired absence of stomach [part of]
CPT/HCPCS: 99214

== ENCOUNTER → 2023-09-18 09:00 | Outpatient (BNVA) | payer OTHER, SELFPAY | PROVIDERS: PCP Internal Medicine; Visit Provider Physician Assistant | DX: E66.01 Morbid (severe) obesity due to excess calories (principal); Z90.3 Acquired absence of stomach [part of] ==

== ENCOUNTER → 2023-10-03 10:00 | Outpatient (BNV) | payer OTHER, SELFPAY | PROVIDERS: PCP Internal Medicine; Visit Provider Radiology Diagnostic Radiology | DX: Z12.31 Encounter for screening mammogram for malignant neoplasm of breast (principal) | CPT/HCPCS: 77063; 77067 ==

== ENCOUNTER 2023-10-03 10:09 | Outpatient (REF) | payer OTHER, SELFPAY ==
--- NOTE | ~2023-10-03 | MM_ITS ---
EXAMINATION: MM SCREENING DIGITAL BREAST TOMOSYNTHESIS, BILATERAL CLINICAL INFORMATION: Screening. Asymptomatic. COMPARISON: Mammography: This study is compared with prior exams dating back to 2018. TECHNIQUE: Digital breast tomosynthesis is performed in both the craniocaudal and mediolateral oblique views along with computer-aided detection (CAD). Synthesized 2D images are generated from the tomosynthesis. FINDINGS: There are scattered areas of fibroglandular density (ACR BI-RADS breast composition Category b). There is a focal asymmetry in the central portion of the left breast. It is associated with grouped calcifications. Additional mammographic and targeted sonographic evaluation of this finding is advised. Separate magnification imaging is also advised to fully evaluate calcifications. In the right breast, there no are no significant masses, abnormal calcifications, or other abnormalities. MM/MM tomosynthesis screening BI IMPRESSION: Focal asymmetry and associated calcifications of the central portion of the left breast warrants additional mammographic and targeted sonographic imaging. Separate magnification imaging is also advised. No mammographic signs of malignancy right breast. ASSESSMENT: BI-RADS BI-RADS 0 - Incomplete: Needs additional Imaging. RECOMMENDATION: 1. Additional views of the left breast. 2. Targeted ultrasound if warranted after review of the additional views. 3. Radiology department staff will contact the patient for additional imaging. Additional Imaging required This examination should not preclude the clinical evaluation of a suspicious palpable abnormality. This patient's information was entered into a reminder system with a target due date for their next mammogram.
== END 2023-10-03 10:10 | disposition home or self-care (01) ==
LOC: HO.MAMMO 10:09
PROVIDERS: PCP Internal Medicine; Visit Provider Internal Medicine
DX: Z12.31 Encounter for screening mammogram for malignant neoplasm of breast (principal)
CPT/HCPCS: 77063; 77067

== ENCOUNTER 2023-11-05 14:50 | Outpatient (REF) | payer OTHER, SELFPAY ==
--- NOTE | ~2023-11-05 | US_ITS ---
EXAMINATION: MM DIAGNOSTIC DIGITAL BREAST TOMOSYNTHESIS, LEFT US BREAST LIMITED, LEFT MAMMOGRAPHY: CLINICAL INFORMATION: Diagnostic to evaluate oval mass with associated calcifications measuring 4 mm left breast approximate 5:00 axis, middle one third, seen on screening exam. COMPARISON: Mammography: 10/03/2023, 09/27/2022, 09/21/2021, 09/15/2020, 09/10/2019, 08/17/2018 TECHNIQUE: Digital breast tomosynthesis is performed in the following views: Full-field 3-D digital left mediolateral view, 3-D spot compression left CC and MLO views, and 2-D spot magnification left CC and ML views. Computer-aided diagnosis was used for this study. This was followed by targeted left breast ultrasound. FINDINGS: There are scattered areas of fibroglandular density (ACR BI-RADS breast composition Category b). Diagnostic views demonstrate an oval circumscribed mass within the inferior slightly lateral left breast, approximate 5:00 axis, middle one third, with associated punctate calcifications. This measures 4 mm in diameter. It has been stable since 09/21/2021 exams, as has a larger oval mass without calcifications in the 3:00 axis left breast, middle one third. There are no suspicious masses, suspicious grouped calcifications, or areas of architectural distortion in the left breast. There is no skin or axillary abnormality. ULTRASOUND: CLINICAL INFORMATION: Evaluate small oval mass with associated small calcifications 5:00 axis left breast middle one third. COMPARISON: No relevant prior ultrasound. TECHNIQUE: Targeted sonographic evaluation was performed using a high frequency linear transducer. Attention was given to the 4:00 to 8:00 axes of the left breast Selected archived documentation. FINDINGS: LEFT BREAST: -At the 5:00 axis, approximately 2 cm from the nipple, there is a mildly complicated cyst measuring 3 x 2 x 4 mm, with good through transmission, no internal color Doppler signal, and small round calcifications in the lateral aspect, correlating well with the mammographic focus of concern. This finding is benign. US/US breast LT limited mamm only IMPRESSION: No findings in the left breast suspicious for malignancy. Mildly complicated 4 mm cyst with associated tiny punctate calcifications in the 5:00 axis of the left breast, correlating well with the mammographic focus of concern. This is benign, and has been stable on mammography since prior exams dating back to 2022. No further follow-up recommended. Recommend patient return to routine annual screening. OVERALL ASSESSMENT: Mammography: BI-RADS 2 - Benign Findings Ultrasound: BI-RADS 2 - Benign Findings RECOMMENDATION: 1 year F/U This patient's information was entered into a reminder system with a target due date for their next mammogram.
== END 2023-11-05 14:51 | disposition home or self-care (01) ==
LOC: HO.MAMMO 14:50
PROVIDERS: PCP Internal Medicine; Visit Provider Internal Medicine
DX: R92.1 Mammographic calcification found on diagnostic imaging of breast (principal)
CPT/HCPCS: 76642; 77061; 77065

== ENCOUNTER → 2023-11-05 15:00 | Outpatient (BNV) | payer OTHER, SELFPAY | PROVIDERS: PCP Internal Medicine; Visit Provider Radiology Diagnostic Radiology | DX: N60.02 Solitary cyst of left breast (principal); R92.0 Mammographic microcalcification found on diagnostic imaging of breast; R92.322 Mammographic fibroglandular density, left breast | CPT/HCPCS: 76642; 77061; 77065 ==

== ENCOUNTER 2023-11-19 15:40 | Outpatient (AMB) | payer OTHER, SELFPAY ==
[2023-11-19 15:46] VITALS: BP 132/80; PULSE 58; O2SAT 98; BMI 36.3
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
== END 2023-11-19 16:14 | disposition home or self-care (01) ==
PROVIDERS: PCP Internal Medicine; Visit Provider Internal Medicine
DX: I10 Essential (primary) hypertension (principal); F41.9 Anxiety disorder, unspecified; E66.01 Morbid (severe) obesity due to excess calories; Z68.36 Body mass index [BMI] 36.0-36.9, adult
CPT/HCPCS: 99214

== ENCOUNTER 2024-03-09 15:26 | Outpatient (AMB) | payer OTHER, SELFPAY ==
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
[2024-03-09 15:33] VITALS: BP 110/78; PULSE 60; O2SAT 97; BMI 36.0
== END 2024-03-09 16:06 | disposition home or self-care (01) ==
PROVIDERS: PCP Internal Medicine; Visit Provider Internal Medicine
DX: I10 Essential (primary) hypertension (principal); E66.01 Morbid (severe) obesity due to excess calories; Z68.36 Body mass index [BMI] 36.0-36.9, adult; M25.561 Pain in right knee
CPT/HCPCS: 99214; G2211

== ENCOUNTER 2024-04-27 15:05 | Outpatient (REF) | payer OTHER, SELFPAY ==
[2024-04-27 18:21] LABS: Appearance Urine Clear; Color Urine Yellow; Glucose Urine UA Negative (Negative); Leukocyte Esterase Urine Negative (Negative); Nitrite Urine Negative (Negative); Specific Gravity - Urine 1.025 (1.005-1.025); UMIC TRIGGER UA YES; Urine Blood Negative (Negative); Urine Ketones Trace mg/dL (Negative); Urine Protein 30 (1+) mg/dL (Neg-Trace)
[2024-04-27 18:25] LABS: Hematocrit 34.7 % (37.0-47.0); Hemoglobin 11.1 g/dl (12.0-16.0); Mean Corpuscular Hemoglobin 29.8 pg (27.0-33.0); Mean Corpuscular Volume 93.3 fL (80.0-98.0); Mean Platelet Volume 10.8 fL (9.4-12.3); Platelet Count 167 X10*3/uL (160-400); Red Blood Count 3.72 X10*6/uL (4.20-5.50); Red Cell Distribution Width 12.2 % (11.0-16.0); White Blood Count 3.1 X10*3/uL (4.8-10.8)
[2024-04-27 18:40] LABS: Bacteria Urine None Seen (None Seen); Hyaline Casts Urine 0-2 /LPF (0-2); RBC Urine 0-2 /HPF (0-2); Squamous Epithelial Cell Urine 0-2 /HPF (0-2); WBC Urine 0-5 /HPF (0-5)
[2024-04-27 18:50] LABS: Alanine Aminotransferase 11 U/L (0-31); Alkaline Phosphatase 69 U/L (39-117); Anion Gap 10 (12-20); Aspartate Amino Transferase 20 U/L (5-31); Bilirubin Direct < 0.2 mg/dL (0.0-0.5); Bilirubin Total 0.2 mg/dL (0.0-1.0); Blood Urea Nitrogen 13 mg/dL (9-16); Calcium 9.6 mg/dL (8.4-10.2); Carbon Dioxide 27 mmol/L (22-29); Chloride 108 mmol/L (96-108); Cholesterol 177 mg/dL (<200); Estimated Glomerular Filt Rate > 60; Glucose Random 70 mg/dL (60-115); HDL Cholesterol 48 mg/dL (>40); LDL Cholesterol Calculated 110 mg/dL (<100); Potassium 4.2 mmol/L (3.3-5.1); Sodium 141 mmol/L (135-145); Total Protein 8.6 g/dL (6.5-8.0); Triglycerides 98 mg/dL (<150)
[2024-04-29 17:58] LABS: Follicle Stimulating Hormone 68.6 mIU/mL
== END 2024-04-27 15:06 | disposition home or self-care (01) ==
LOC: HO.LAB 15:05
PROVIDERS: PCP Internal Medicine; Visit Provider Advanced Practice Midwife
DX: Z32.02 Encounter for pregnancy test, result negative (principal); I10 Essential (primary) hypertension; E66.01 Morbid (severe) obesity due to excess calories
CPT/HCPCS: 36415; 80048; 80061; 80076; 81001; 81025; 83001; 85027

== ENCOUNTER 2024-04-27 15:05 | Outpatient (AMB) | payer OTHER, SELFPAY ==
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
[2024-04-27 15:13] VITALS: BP 110/76; BMI 36.0
== END 2024-04-27 16:21 | disposition home or self-care (01) ==
PROVIDERS: PCP Internal Medicine; Visit Provider Advanced Practice Midwife
DX: Z32.02 Encounter for pregnancy test, result negative (principal); R23.2 Flushing
CPT/HCPCS: 99203

== ENCOUNTER 2024-05-16 15:41 | Outpatient (AMB) | payer OTHER, SELFPAY ==
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
[2024-05-16 15:45] VITALS: BP 140/84; PULSE 60; O2SAT 98; BMI 35.2
== END 2024-05-16 16:55 | disposition home or self-care (01) ==
PROVIDERS: PCP Internal Medicine; Visit Provider Internal Medicine
DX: K59.00 Constipation, unspecified (principal)

== ENCOUNTER → 2024-05-16 15:41 | Outpatient (BNVA) | payer OTHER, SELFPAY | PROVIDERS: PCP Internal Medicine; Visit Provider Internal Medicine | DX: K59.00 Constipation, unspecified (principal) ==

== ENCOUNTER 2024-08-11 15:23 | Outpatient (AMB) | payer OTHER, SELFPAY ==
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
[2024-08-11 15:35] VITALS: BP 122/86; BMI 34.2
== END 2024-08-11 16:09 | disposition home or self-care (01) ==
PROVIDERS: PCP Internal Medicine; Visit Provider Advanced Practice Midwife
DX: Z01.419 Encounter for gynecological examination (general) (routine) without abnormal findings (principal)
CPT/HCPCS: 99396

== ENCOUNTER → 2024-09-29 08:11 | Outpatient (BNVA) | payer OTHER, SELFPAY | PROVIDERS: PCP Internal Medicine; Visit Provider Internal Medicine ==

== ENCOUNTER 2024-11-09 15:19 | Outpatient (AMB) | payer OTHER, SELFPAY ==
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
[2024-11-09 15:23] VITALS: BP 118/84; BMI 33.9
--- OUTSIDE RECORDS SUMMARY | 2024-11-09 18:04 | XMS_ITS | Clinical Summary ---
Author Organization [address] [place] [address] [place] [id number] Phone Care Team Providers Care Animal Husbandry Teacher Name Role Phone Marci Reyez MD Primary Care Provider [phone] Allergies No known active allergies Medications No known medications Social History Tobacco Use Types Packs/Day Years Used Date Smoking Tobacco: Never Assessed Comments Unknown Sex and Gender Information Value Date Recorded Sex Assigned at Not on file Legal Sex Female 11:17 AM EST Gender Identity Not on file Sexual Orientation Not on file Last Filed Vital Signs Vital Sign Reading Time Taken Comments Blood Pressure 118/78 07/16/2024 9:37 AM EST Pulse 72 07/16/2024 9:37 AM EST Temperature 36.2 ??C (97.2 ??F) 07/16/2024 9:37 AM ES T Respiratory Rate - - Oxygen Saturation 99% 07/16/2024 9:37 AM EST Inhaled Oxygen Concentration - - Weight - - Height - - Body Mass Index - - Plan of Treatment Health Maintenance Due Date Last Done Comments Breast Cancer Screening 1968 DTaP,Tdap,and Td Vaccines (1 - Tdap) 1987 Hepatitis B Vaccines (1 of 3 - 19+ 3-dose series) 1987 Cervical Cancer Screening: Pap Smear 1989 Pneumococcal Vaccine: 50+ Years (1 of 1 - PCV) 2018 Zoster Vaccines (1 of 2) 2018 Cholesterol Screening (Lipid Panel) 07/29/2022 Colorectal Cancer Screening: Colonoscopy 07/29/2022 Depression Screening 07/29/2022 HIV Screening 07/29/2022 Hepatitis C Screening 07/29/2022 Social Influencers of Health Screening 07/29/2022 COVID-19 Vaccine (2 - 2023-25 season) 2024 10/11/2021 Hypertension/CHF/CAD Annual BMP Blood Test 07/16/2024 Influenza Vaccine Completed 05/19/2024, , 06/24/2022, Additional history exists HIB Vaccines Aged Out No longer eligi ble based on patient's age to complete this topic HPV Vaccines Aged Out No longer eligi ble based on patient's age to complete this topic Hepatitis A Vaccines Aged Out No long er eligible based on patient's age to complete this topic IPV Vaccines Aged Out No longer eligi ble based on patient's age to complete this topic MMR Vaccines Aged Out No longer eligi ble based on patient's age to complete this topic Meningococcal ACWY Vaccine Aged Out N o longer eligible based on patient's age to complete this topic Meningococcal B Vacine Aged Out No lo nger eligible based on patient's age to complete this topic Pneumococcal Vaccine: Pediatrics (0 to 5 Years) and At-Risk Patients (6 to 64 Years) Aged Out No longer eligible based on patient's age to complete this topic RSV Immunization Patients Under 20 months Aged Out No longer eligible based on patient's age to complete this topic Varicella Vaccines Aged Out No longer eligible based on patient's age to complete this topic Insurance [employer] Care Teams Animal Husbandry Teacher Relationship Specialty Start Date End Date Marci Reyez MD [address] [place] [address] [address] [place] PCP - General 07/18/08
== END 2024-11-09 16:00 | disposition home or self-care (01) ==
LOC: HO.HWS 15:19
PROVIDERS: PCP Internal Medicine; Visit Provider Advanced Practice Midwife
DX: Z30.432 Encounter for removal of intrauterine contraceptive device (principal)
CPT/HCPCS: 58301

== ENCOUNTER → 2024-11-09 15:19 | Outpatient (BNVA) | payer OTHER, SELFPAY | PROVIDERS: PCP Internal Medicine; Visit Provider Advanced Practice Midwife | DX: Z30.432 Encounter for removal of intrauterine contraceptive device (principal) | CPT/HCPCS: 58301 ==

== ENCOUNTER 2024-11-18 08:13 | Outpatient (REF) | payer OTHER, SELFPAY ==
--- OUTSIDE RECORDS SUMMARY | 2024-11-18 08:19 | XMS_ITS | Clinical Summary ---
Author Organization [address] [place] [address] [place] [id number] Phone Care Team Providers Care Legal Director Name Role Phone Marci Reyez MD Primary Care Provider [phone] Allergies No known active allergies Medications No [...] this topic Insurance [employer] Care Teams Legal Director Relationship Specialty Start Date End Date Marci Reyez MD [address] [place] [address] [address] [place] PCP - General 07/18/08
== END 2024-11-18 08:14 | disposition home or self-care (01) ==
LOC: HO.MAMMO 08:13
PROVIDERS: PCP Internal Medicine; Visit Provider Internal Medicine
DX: Z12.31 Encounter for screening mammogram for malignant neoplasm of breast (principal)
CPT/HCPCS: 77063; 77067

== ENCOUNTER → 2024-11-18 08:15 | Outpatient (BNV) | payer OTHER, SELFPAY | PROVIDERS: PCP Internal Medicine; Visit Provider Internal Medicine | DX: Z12.31 Encounter for screening mammogram for malignant neoplasm of breast (principal) | CPT/HCPCS: 77063; 77067 ==

== ENCOUNTER 2024-12-29 14:49 | Outpatient (AMB) | payer OTHER, SELFPAY ==
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
[2024-12-29 15:04] VITALS: BP 120/60; PULSE 71; TEMP 36.3; O2SAT 97; BMI 34.1
--- OUTSIDE RECORDS SUMMARY | 2024-12-29 16:47 | XMS_ITS ---
Author Organization [facility] Address [address] [facility] [address] [place] [address] Care Team Providers Care Brim Curler Name Role Phone Vinny Mckinney Primary Care Provider MONICA Patterson [phone] Allergies Allergen (clinical drug ingredient) Drug/Non Drug Allergy documented on EMR Reaction Allergy Type Onset Date Status angiotensin-converting enzyme inhibitor (FN) SHALONDA Inhibitors anaphylaxis Drug Allergy Acti ve lisinopril Lisinopril anaphylaxis Drug Allergy Act isabel REASON FOR VISIT B/L 2nd toe pain, Rt worst. Sore to the touch Medications Medication SIG (Take, Route, Frequency, Duration) Notes Start Date End Date Status Fluorouracil 5 % 1 application It Programmer Analyst ally once a day for 90 days 12/26/2024 Active Vitamin B Complex - as directed Orally Active amLODIPine Besylate 10 MG 1 tablet Orally Once a day Active Citracal Plus Active Iron 325 (65 Fe) MG 1 tablet Orally Thre e times a Week Active Problems Problem Type SNOMED Code ICD Code Onset Dates Problem Status W/U Status Risk Notes Problem [id number] Other hammer toe(s) (acquired), right foot (M20.41) Active confirmed Problem 23166127 Other hammer toe(s) (acquired), left foot (M20.42) Active confirmed Vital Signs Temperature 97.1 degrees Fahrenheit 12/27/19 25 Heart Rate 60 /min 12/26/2024 Respiratory Rate 16 /min 12/26/2024 Height 5ft 6in in 12/26/2024 Weight 216.6 lbs 12/26/2024 BMI 34.96 kg/m2 12/26/2024 Encounters Encounter Location Date Provider Diagnosis [facility] [address] [facility] [address] [place] [address] 12/26/2024 MONICA BOTELLO Other hammer toe(s) (acquired), right foot M20.41 ; Other hammer toe(s) (acquired), left foot M20.42 ; Callus of toe L84 ; Dystrophic nail L60.3 ; Pain in right foot M79.671 ; Pain in left foot M79.672 ; Capsulitis of metatarsophalangeal (MTP) joint of left foot M77.52 and Capsulitis of metatarsophalangeal (MTP) joint of right foot M77.51 Assessments Encounter Date Diagnosis (ICD Code) Assessment Notes Treatment Notes Treatment Clinical Notes Section Notes 12/26/2024 Other hammer toe(s) (acquired), right foot (ICD-10 - M20.41) This is an outpatient visit for evaluation and management of a new patient, which required appropriate review of pertinent medical history, review of any previous imaging, review of all previous records, and examination and decision-making. Time was 45 minutes spent in review of all these facets including face to face discussion with the patient regarding my findings and in discussion of a current and future treatment plan. I discussed with the patient the results of her x-rays. We discussed her midfoot and rearfoot arthritis and pes planus deformity. We discussed her shortened 1st metatarsal, elongated 2nd and 3rd metatarsals. We discussed her 2nd and 3rd toes are the longest, so they cause the most pressure biomechanically when ambulating and when in shoes. We discussed the flexible hammering of the lesser toes as a result of the arthritis and the 1st metatarsal. I explained to the patient that metatarsalgia is caused by an inflammation of the capsules surrounding the joints of the toes. I explained that they need an insert in their shoes to help offload the metatarsal heads when they walk to take the pressure off the capsules. I wrote a prescription for a full length inserts with metatarsal pads bilaterally. List of DME suppliers given to the patient. We discussed the thickened nails and calluses we discussed they happen due to the biomechanical pressures. Using a #15 blade and jacquard card cutter, I debrided the right and left 2nd toenails/calluses, patient tolerated well. I recommended a keratolytic to help reduce the skin build up. RX fluorouracil 5% cream to apply to the right and left 2nd toenails once daily. We discussed she needs to use for the next 9 months. I would like to see the patient back in 2 months to check on progress, she is in agreement with this plan. 12/26/2024 Other hammer toe(s) (acquired), left foot (ICD-10 - M20.42) 12/26/2024 Callus of toe (ICD-1 0 - L84) 12/26/2024 Dystrophic nail (ICD-10 - L60.3) 12/26/2024 Pain in right foot (ICD-10 - M79.671) 12/26/2024 Pain in left foot (ICD-10 - M79.672) 12/26/2024 Capsulitis of metatarsophalangeal (MTP) joint of left foot (ICD-10 - M77.52) 12/26/2024 Capsulitis of metatarsophalangeal (MTP) joint of right foot (ICD-10 - M77.51) Plan Of Treatment Medication Medication Name Sig Start Date Stop Date Notes Fluorouracil 5 % 1 application It Programmer Analyst ally once a day for 90 days 12/26/2024 Treatment Notes Assessment Notes Other hammer toe(s) (acquire d), right foot This is an outpatient visit for evaluation and management of a new patient, which required appropriate review of pertinent medical history, review of any previous imaging, review of all previous records, and examination and decision-making. Time was 45 minutes spent in review of all these facets including face to face discussion with the patient regarding my findings and in discussion of a current and future treatment plan. I discussed with the patient the results of her x-rays. We discussed her midfoot and rearfoot arthritis and pes planus deformity. We discussed her shortened 1st metatarsal, elongated 2nd and 3rd metatarsals. We discussed her 2nd and 3rd toes are the longest, so they cause the most pressure biomechanically when ambulating and when in shoes. We discussed the flexible hammering of the lesser toes as a result of the arthritis and the 1st metatarsal. I explained to the patient that metatarsalgia is caused by an inflammation of the capsules surrounding the joints of the toes. I explained that they need an insert in their shoes to help offload the metatarsal heads when they walk to take the pressure off the capsules. I wrote a prescription for a full length inserts with metatarsal pads bilaterally. List of DME suppliers given to the patient. We discussed the thickened nails and calluses we discussed they happen due to the biomechanical pressures. Using a #15 blade and jacquard card cutter, I debrided the right and left 2nd toenails/calluses, patient tolerated well. I recommended a keratolytic to help reduce the skin build up. RX fluorouracil 5% cream to apply to the right and left 2nd toenails once daily. We discussed she needs to use for the next 9 months. I would like to see the patient back in 2 months to check on progress, she is in agreement with this plan. Pending Test Test Name Order Date X ray : Foot, left 3v 12/26/2024 X ray : Foot, right 3v 12/26/2024 Next Appt Details Follow Up: 2-3 months, Reaso n: Provider Name:MONICA BOTELLO, 03/06/2025 04:00:00 PM, [address], [address], Progress Notes * Ambar GAGNONDOB:1970 (54 yo F)Acc No.[id number]:12/26/2024 Consult note Patient:?Max GAGNONjoshua Provider:?Monica Botello DPM :1970???Age:54 Y???Sex:Female D ate:12/26/2024 Phone: Address:[address] [place] [id number] Pcp:Vinny Mckinney Subjective: * Chief Complaints: * ???B/L 2nd toe pain, Rt wors t. Sore to the touch * HPI: ???Foot & Ankle:? This 54 y.o female presents to my office with a complaint of bilateral foot pain. She states the pain started as a soreness to both 2nd toes approximately a year ago. She states that was also about the same time the toenails of those toes started to become thick and deformed. She also has noticed calluses on the tips of the toes. She states the toes have been particularly painful for the last 2 months. She states they hurt to the touch, and even a bedsheet touching the toes can hurt. She also has stiffness and pain in her ankles. She states her has arthritis and was told to wear shoes with support. She states she has not tried anything for this issue. She denies any injury or trauma to the toes. She has no other foot complaints this visit. Allergies and medical history reviewed. * ROS:?GENERAL: Pt denies nausea, fever, vomiting, chills, or shortness of breath. Pt in NAD. ALLERGY: patient denies any new allergy HEME/ONC: patient denies any bleeding or clotting disorders CARDIOLOGY: pt denies chest pain, palpitations LUNGS: pt denies shortness of breath ABDOMEN: patient denies any bloating, abdominal pain, or swelling MUSCULOSKELETAL: See HPI, has joint pain SKIN: see HPI, otherwise no lesions, rash or itching NEURO: No persistent headache, weakness or numbness PSYCH: patient denies any current anxiety or depression The remainder of the review of systems is noncontributory. * Medical History:? * Surgical History:?Colonoscop y 10/05/2020Vocal cord polypectomy Sleeve gastrectomy 2019left breast lump/mass excision right knee surgery 2017Appendectomy 1975Tonsillectomy 1974 * Hospitalization/Major Diagno stic Procedure:?vaginal delivery (girl) 1991vaginal delivery (girl) 1994vaginal delivery (boy) 1998vaginal delivery (girl) 1999tonsillectomy 1974appendectomy 1975sleeve gastrectomy 2019 * Family History:?Mother: hype rtension, Atrial Fibrillation, Sarcocystosis, anemia.?Maternal Grand Mother: ovarian cancer, hypertension.?Maternal aunt: # 1 breast cancermaternal aunt # 2- breast cancermaternal aunt # 3 - lupus, congestive heart failure.?1 son(s) , 3 daughter(s) - healthy. .? * Social History:?tobacco: never alcohol: holidays/special occasions. * Medications:?TakingCitracal Plus Iron 325 (65 Fe) MG Tablet 1 tablet Orally Three times a Week Vitamin B Complex - Capsule as directed Orally amLODIPine Besylate 10 MG Tablet 1 tablet Orally Once a day Medication List reviewed and reconciled with the patientTaking Citracal Plus Taking Iron 325 (65 Fe) MG Tablet 1 tablet Orally Three times a Week Taking Vitamin B Complex - Capsule as directed Orally Taking amLODIPine Besylate 10 MG Tablet 1 tablet Orally Once a day Medication List reviewed and reconciled with the patient * Allergies:?SHALONDA Inhibitors: a naphylaxisLisinopril: anaphylaxisno[Allergies Verified] Objective: * Vitals:?Wt:216.6lbs, Ht: 5ft 6in, BMI:34.96Index, HR:60/min, Temp:97.1F, RR:16/min, Ht-cm: 167.64, Wt-k.25 kg. * Examination: ???General Examination: ???GENERAL: Patient appears well nourished, with NAD. VASCULAR: Dorsalis pedis pulses are 2/4 bilaterally and Posterior tibial pulses are 2/4 bilaterally. Capillary filling time within normal limits the digits. No pallor on elevation or rubor on dependency. Denies rest pain or claudication pain. Each foot temperature is within normal limits. NEUROLOGICAL: Sharp/dull sensation intact bilaterally, vibratory sensation with tuning fork intact to the tibial tuberosity bilaterally, position sense intact bilaterally to the tibial tuberosity. ORTHOPEDIC: Good muscle strength 4+/5 of all flexors and extensors. Dorsi flexion of ankle,0 degrees, plantar flexion WNL. No muscle atrophy. Tenderness on palpation of the 2nd, 3rd dorsal metatarsophalangeal joints, no pain on palpation submetatarsal 2,3 bilaterally, no pain on forefoot compression. Flexible hammering of toes 2,3,4,5 bilaterally. Shortened hallux bilaterally. DERMATOLOGICAL: Hyperkeratotic lesions distal tip of the right and left 2nd toes with pain on palpation. 5mm thickened brown discoloration dystrophic right and left 2nd toes with pain on palpation. Normal skin temperature, normal skin turgor. BIOMECHANICS: STJ ROM restricted, MTJ ROM restricted, 1st MPJ ROM limited. On weight-bearing, pes planus. SHOES: sandals. Therapeutic Interventions: Assessment: * Assessment: 1.?Other hammer toe(s) (acqu ired), right foot - M20.41 (Primary)???2.?Other hammer toe(s) (acquired), left foot - M20.42???3.?Callus of toe - L84???4.?Dystrophic nail - L60.3???5.?Pain in right foot - M79.671? ?6.?Pain in left foot - M79.672???7.?Capsulitis of metatarsophalangeal (MTP) joint of left foot - M77.52???8.?Capsulitis of metatarsophalangeal (MTP) joint of right foot - M77.51??? Plan: * Treatment: Notes: This is an outpatient visit for evaluation and management of a new patient, which required appropriate review of pertinent medical history, review of any previous imaging, review of all previous records, and examination and decision-making. Time was 45 minutes spent in review of all these facets including face to face discussion with the patient regarding my findings and in discussion of acurrent and future treatment plan. I discussed with the patient the results of her x-rays. We discussed her midfoot and rearfoot arthritis and pes planus deformity. We discussed her shortened 1st metatarsal, elongated 2nd and 3rd metatarsals. We discussed her 2nd and 3rd toes are the longest, so they cause the most pressure biomechanically when ambulating and when in shoes. We discussed the flexible hammering of the lesser toes asa result of the arthritis and the 1st metatarsal. I explained to the patient that metatarsalgia is caused by an inflammation of the capsules surrounding the joints of the toes. I explained that they need an insert in their shoes to help offload the metatarsal heads when they walk to take the pressure off the capsules. I wrote a prescription for a full length inserts with metatarsal pads bilaterally. List of DME suppliers given to the patient. We discussed the thickened nails and calluses we discussed they happen due to the biomechanical pressures. Using a #15 blade and jacquard card cutter, I debrided the right and left 2nd toenails/calluses, patient tolerated well. I recommended a keratolytic to help reduce the skin build up. RX fluorouracil 5% cream to apply to the right and left 2nd toenails once daily. We discussed she needs to use for the next 9 months. I would like to see the patient back in 2 months to check on progress, she is in agreement with this plan.??2.?Other hammer toe(s) (acquired), left foot?Imaging: X ray : Foot, left 3v* LEFT FOOT WEIGHT BEARING X-R AYS 3 VIEWS obtained during today's visit. On the AP view there is a shortened first metatarsal. The 2nd and 3rd metatarsals are noted to be elongated. Slight subluxation and hammering of the distal interphalangeal joint of toes 2,3. Adductovarus rotation of toes 4,5. There are degenerative changes of the midtarsal joints on the AP view. Sclerosis and moderate to severe arthritic changes of the talonavicular joint and calcaneocuboid joint. On the lateral view moderate to severe arthritis of the subtalar joint. A dorsal osteophyte noted at the talonavicular joint. Pes planus deformity. 3.?Pain in right foot?Imaging: X ray : Foot, right 3v* RIGHT FOOT WEIGHT BEARING X- RAYS 3 VIEWS obtained during today's visit. On the AP view there is a shortened first metatarsal. The 2nd and 3rd metatarsals are noted to be elongated. Slight subluxation and hammering of the distal interphalangeal joint of toes 2,3. Adductovarus rotation of toes 4,5. There are degenerative changes of the midtarsal joints on the AP view. Sclerosis and moderate to severe arthritic changes of the talonavicular joint and calcaneocuboid joint. On the lateral view moderate to severe arthritis of the subtalar joint. A dorsal osteophyte noted at the talonavicular joint. Pes planus deformity. 4.?Pain in left foot?Imaging: X ray : Foot, left 3v* LEFT FOOT WEIGHT BEARING X-R AYS 3 VIEWS obtained during today's visit. On the AP view there is a shortened first metatarsal. The 2nd and 3rd metatarsals are noted to be elongated. Slight subluxation and hammering of the distal interphalangeal joint of toes 2,3. Adductovarus rotation of toes 4,5. There are degenerative changes of the midtarsal joints on the AP view. Sclerosis and moderate to severe arthritic changes of the talonavicular joint and calcaneocuboid joint. On the lateral view moderate to severe arthritis of the subtalar joint. A dorsal osteophyte noted at the talonavicular joint. Pes planus deformity. 5.?Capsulitis of metatarsophalangeal (MTP) joint of left foot?Imaging: X ray : Foot, left 3v* LEFT FOOT WEIGHT BEARING X-R AYS 3 VIEWS obtained during today's visit. On the AP view there is a shortened first metatarsal. The 2nd and 3rd metatarsals are noted to be elongated. Slight subluxation and hammering of the distal interphalangeal joint of toes 2,3. Adductovarus rotation of toes 4,5. There are degenerative changes of the midtarsal joints on the AP view. Sclerosis and moderate to severe arthritic changes of the talonavicular joint and calcaneocuboid joint. On the lateral view moderate to severe arthritis of the subtalar joint. A dorsal osteophyte noted at the talonavicular joint. Pes planus deformity. 6.?Capsulitis of metatarsophalangeal (MTP) joint of right foot?Imaging: X ray : Foot, right 3v* RIGHT FOOT WEIGHT BEARING X- RAYS 3 VIEWS obtained during today's visit. On the AP view there is a shortened first metatarsal. The 2nd and 3rd metatarsals are noted to be elongated. Slight subluxation and hammering of the distal interphalangeal joint of toes 2,3. Adductovarus rotation of toes 4,5. There are degenerative changes of the midtarsal joints on the AP view. Sclerosis and moderate to severe arthritic changes of the talonavicular joint and calcaneocuboid joint. On the lateral view moderate to severe arthritis of the subtalar joint. A dorsal osteophyte noted at the talonavicular joint. Pes planus deformity. * Procedure Codes:?66478 X-RAY EXAM OF FOOT 3 Views, Units: 2.00 , Modifiers: 50 66314 DEBRIDE NAIL, 1-5 * Follow Up:?2-3 months * Billing Information: * Visit Code:? 90917 Office Visit, New Pt., Level 3. Modifiers: 25 * Procedure Codes:? 14460 X-RAY EXAM OF FOOT 3 Views. Units: 2.00. Modifiers: 50 94459 DEBRIDE NAIL, 1-5. * Sign off status: Completed true * Provider:Robert Botello DPM Date:? 12/26/2024 Generated for Huong richards/Dileep/Dakota on:?12/29/2024 04:47 PM EDT History and Physical Notes * HPI (History of Present Illness) Category Sub-Category Detail Notes Category Not es Foot & Ankle This 54 y.o fem sierra presents to my office with a complaint of bilateral foot pain. She states the pain started as a soreness to both 2nd toes approximately a year ago. She states that was also about the same time the toenails of those toes started to become thick and deformed. She also has noticed calluses on the tips of the toes. She states the toes have been particularly painful for the last 2 months. She states they hurt to the touch, and even a bedsheet touching the toes can hurt. She also has stiffness and pain in her ankles. She states her has arthritis and was told to wear shoes with support. She states she has not tried anything for this issue. She denies any injury or trauma to the toes. She has no other foot complaints this visit. Allergies and medical history reviewed. Examination Category Sub-Category Detail Notes Category Not es General Examination GENERAL: Patient appears well nourished, with NAD. VASCULAR: Dorsalis pedis pulses are 2/4 bilaterally and Posterior tibial pulses are 2/4 bilaterally. Capillary filling time within normal limits the digits. No pallor on elevation or rubor on dependency. Denies rest pain or claudication pain. Each foot temperature is within normal limits. NEUROLOGICAL: Sharp/dull sensation intact bilaterally, vibratory sensation with tuning fork intact to the tibial tuberosity bilaterally, position sense intact bilaterally to the tibial tuberosity. ORTHOPEDIC: Good muscle strength 4+/5 of all flexors and extensors. Dorsi flexion of ankle,0 degrees, plantar flexion WNL. No muscle atrophy. Tenderness on palpation of the 2nd, 3rd dorsal metatarsophalangeal joints, no pain on palpation submetatarsal 2,3 bilaterally, no pain on forefoot compression. Flexible hammering of toes 2,3,4,5 bilaterally. Shortened hallux bilaterally. DERMATOLOGICAL: Hyperkeratotic lesions distal tip of the right and left 2nd toes with pain on palpation. 5mm thickened brown discoloration dystrophic right and left 2nd toes with pain on palpation. Normal skin temperature, normal skin turgor. BIOMECHANICS: STJ ROM restricted, MTJ ROM restricted, 1st MPJ ROM limited. On weight-bearing, pes planus. SHOES: sandals
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
--- OUTSIDE RECORDS SUMMARY | 2024-12-29 16:47 | XMS_ITS | Patient Health Record ---
Author Organization [facility] Address [address] [place] [address] Care Team Providers Care Machine I Engraver Name Role Phone Vinny Mckinney Primary Care Provider [phone] Nicole Hale [phone] Reason For Referral No Information Encounters Encounter Location Date Provider Diagnosis [facility] [address] [place] [address] 12/05/2024 Nicole Hale Plan Of Treatment No Information Insurance Providers Payer Name Payer Address Payer Phone Subscriber Number Group Number Insured Name Patient Relationship to Insured Coverage Start Date Coverage End Date [address] [place] [address] [id number] Ambar Gagnon Self - patient is the insured
--- OUTSIDE RECORDS SUMMARY | 2024-12-29 16:47 | XMS_ITS | Clinical Summary ---
Author Organization [address] [place] [address] [place] [address] Phone Care Team Providers Care Content Strategist Name Role Phone Marci Reyez MD Primary Care Provider Allergies No known active allergies Medications No [...] age to complete this topic Meningococcal B Vaccine Aged Out No l onger eligible based on patient's age to complete [...] this topic Insurance [employer] Care Teams Content Strategist Relationship Specialty Start Date End Date Marci Reyez MD [address] [place] [address] [address] [place] PCP - General 07/18/08
--- OUTSIDE RECORDS SUMMARY | 2024-12-29 16:47 | XMS_ITS ---
Author Organization [facility] Address [address] [address] Care Team Providers Care Market Development Manager Name Role Phone Faye, Kartik Primary Care Provider YAMILKA Patterson [phone] REASON FOR VISIT Medical Records Encounters Encounter Location Date Provider Diagnosis [facility] [address] [address] 12/05/2024 YAMILKA MENDOZA Plan Of Treatment Next Appt Details Provider Name:YAMILKA MENDOZA, 03/06/2025 04:00:00 PM, [address] [address], [place], [address], Progress Notes * Ambar GAGNONDOB:1970 (54 yo F)Acc No.[id number]:12/05/2024 Patient:?Ambar GAGNON :1970???Age:54 Y???Sex:Female Phone: Address:[address] [place] [address], [phone] * true * Date:? Generated for Printi ng/Brookeg/eTransmitting on:?12/29/2024 04:47 PM EDT
--- OUTSIDE RECORDS SUMMARY | 2024-12-29 16:47 | XMS_ITS ---
Author Organization [facility] Address [address] [place] [address] Care Team Providers Care Fitting Room Supervisor Name Role Phone FayeVinny Primary Care Provider [phone] Nicole Hale [phone] REASON FOR VISIT cx appt 02/02/25 Encounters Encounter Location Date Provider Diagnosis [facility] [address] [place] [address] 12/05/2024 Nicole Hale Plan Of Treatment No Information Progress Notes * ANGELICA AmbarDOB:1970 (54 yo F)Acc No.[id number]:12/05/2024 Patient:?Ambar DOMINGUEZ :1970???Age:54 Y???Sex:Female Address:[address] [place] [address], [address] * true * Date:? Generated for Printi susie/Dileep/eTransmitting on:?12/29/2024 04:46 PM EDT
== END 2024-12-29 16:01 | disposition home or self-care (01) ==
PROVIDERS: PCP Internal Medicine; Visit Provider Internal Medicine
DX: J30.9 Allergic rhinitis, unspecified (principal); E66.01 Morbid (severe) obesity due to excess calories; Z68.34 Body mass index [BMI] 34.0-34.9, adult

== ENCOUNTER → 2024-12-29 14:49 | Outpatient (BNVA) | payer OTHER, SELFPAY | PROVIDERS: PCP Internal Medicine; Visit Provider Internal Medicine | DX: Z13.89 Encounter for screening for other disorder (principal) ==

== ENCOUNTER 2025-01-17 08:10 | Outpatient (REF) | payer OTHER, SELFPAY ==
--- OUTSIDE RECORDS SUMMARY | 2025-01-17 13:15 | XMS_ITS | Clinical Summary ---
Author Organization [address] [place] [address] [place] [address] Phone Care Team Providers Care Membership Sales Manager Name Role Phone Marci Reyez MD Primary Care Provider [phone] Allergies No known active allergies Medications No [...] this topic Insurance [employer] Care Teams Membership Sales Manager Relationship Specialty Start Date End Date Marci Reyez MD [address] [place] [address] [address] [place] PCP - General 07/18/08
[2025-01-17 13:25] LABS: Influenza A PCR NEGATIVE (Negative); Influenza B PCR NEGATIVE (Negative); Resp Syncy Virus RNA Qual PCR NEGATIVE (Negative); SARS COV2 PCR INHOUSE NEGATIVE (Negative)
== END 2025-01-17 08:11 | disposition home or self-care (01) ==
LOC: HO.LNP 08:10
PROVIDERS: PCP Internal Medicine; Visit Provider Physician Assistant
DX: J06.9 Acute upper respiratory infection, unspecified (principal)
CPT/HCPCS: 0241U

== ENCOUNTER 2025-01-17 08:10 | Outpatient (AMB) | payer OTHER, SELFPAY ==
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
[2025-01-17 08:13] VITALS: BP 122/80; PULSE 69; TEMP 36.6; O2SAT 98
--- OUTSIDE RECORDS SUMMARY | 2025-01-17 08:15 | XMS_ITS | Patient Health Record ---
Author Organization [facility] Address [address] [place] [address] Care Team Providers Care Optoelectronic Technician Name Role Phone Vinny Mckinney Primary Care Provider [phone] Nicole Hale [phone] Reason For Referral No Information Encounters Encounter Location Date Provider Diagnosis [facility] [address] [place] [address] 12/05/2024 Nicole Hale Plan Of Treatment No Information Insurance Providers Payer Name Payer Address Payer Phone Subscriber Number Group Number Insured Name Patient Relationship to Insured Coverage Start Date Coverage End Date [address] [place] [phone] [id number] Ambar Gagnon Self - patient is the insured
--- OUTSIDE RECORDS SUMMARY | 2025-01-17 08:15 | XMS_ITS ---
Author Organization [facility] Address [address] [address] Care Team Providers Care Screen Printing Paster Name Role Phone Vinny Mckinney Primary Care Provider YAMILKA Patterson Unavailable [phone] REASON FOR VISIT Medical Records Encounters Encounter Location Date Provider Diagnosis [facility] [address] [address] 12/05/2024 YAMILKA MENDOZA Plan Of Treatment Next Appt Details Provider Name:YAMILKA MENDOZA, 03/06/2025 04:00:00 PM, [address] [address], [place], [address], Progress Notes * Ambar GAGNONDOB:1970 (54 yo F)Acc No.[id number]:12/05/2024 Patient:?Ambar GAGNON :1970???Age:54 Y???Sex:Female Phone: Address:[address] [place] [address], [address] * true * Date:? Generated for Georginai susie/Dileep/eTransmitting on:?01/17/2025 08:14 AM EDT
--- OUTSIDE RECORDS SUMMARY | 2025-01-17 08:15 | XMS_ITS ---
Author Organization [facility] Address [address] [place] [address] Care Team Providers Care Merchandise Carrier Name Role Phone FayeVinny Primary Care Provider Nicole Hale [phone] REASON FOR VISIT cx appt 02/02/25 Encounters Encounter Location Date Provider Diagnosis [facility] [address] [place] [address] 12/05/2024 Nicole Hale Plan Of Treatment No Information Progress Notes * KALIN AmbarDOB:1970 (54 yo F)Acc No.[id number]:12/05/2024 Patient:?Ambar DOMINGUEZ :1970???Age:54 Y???Sex:Female Address:[address] [place] [address], [address] * true * Date:? Generated for Printi ng/Dileep/eTransmitting on:?01/17/2025 08:15 AM EDT
--- OUTSIDE RECORDS SUMMARY | 2025-01-17 08:15 | XMS_ITS | Patient Health Record ---
Author Organization [facility] Address [address] [address] Care Team Providers Care Animal Control Officer Name Role Phone Faye, Kartik Primary Care Provider YAMILKA Patterson [phone] Allergies Allergen (clinical drug ingredient) Drug/Non Drug Allergy documented on EMR Reaction Allergy Type Onset Date Status angiotensin-converting enzyme inhibitor (FN) SHALONDA Inhibitors anaphylaxis Drug Allergy Acti ve lisinopril Lisinopril anaphylaxis Drug Allergy Act isabel Reason For Referral No Information Medications Medication SIG (Take, Route, Frequency, Duration) Notes Start Date End Date Status Fluorouracil 5 % 1 application Electric Train Driver ally once a day for 90 days 12/26/2024 Active Vitamin B Complex - as directed Orally Active amLODIPine Besylate 10 MG 1 tablet Orally Once a day Active Citracal Plus Active Iron 325 (65 Fe) MG 1 tablet Orally Thre e times a Week Active Problems Problem Type SNOMED Code ICD Code Onset Dates Problem Status W/U Status Risk Notes Problem 149907497 Other hammer toe(s) (acquired), right foot (M20.41) Active confirmed Problem 98078260 Other hammer toe(s) (acquired), left foot (M20.42) Active confirmed Vital Signs Heart Rate 60 /min 12/26/2024 Temperature 97.1 degrees Fahrenheit 12/26/2024 Respiratory Rate 16 /min 12/26/2024 Height 5ft 6in in 12/26/2024 Weight 216.6 lbs 12/26/2024 BMI 34.96 kg/m2 12/26/2024 Encounters Encounter Location Date Provider Diagnosis [facility] [address] [address] 12/26/2024 YAMILKA MENDOZA Other hammer toe(s) (acquired), right foot M20.41 ; Other hammer toe(s) (acquired), left foot M20.42 ; Callus of toe L84 ; Dystrophic nail L60.3 ; Pain in right foot M79.671 ; Pain in left foot M79.672 ; Capsulitis of metatarsophalangeal (MTP) joint of left foot M77.52 and Capsulitis of metatarsophalangeal (MTP) joint of right foot M77.51 [facility] [address] [facility] [address] [place] [address] 12/05/2024 YAMILKA MENDOZA Assessments Encounter Date Diagnosis [...] biomechanical pressures. Using a #15 blade and nail galvanizer, I debrided the right and left 2nd [...] 3v 12/26/2024 Next Appt Details Provider Name:YAMILKA MENDOZA, 03/06/2025 04:00:00 PM, [address], [address], Insurance Providers Payer Name Payer Address Payer Phone Subscriber Number Group Number Insured Name Patient Relationship to Insured Coverage Start Date Coverage End Date [facility] [address] [place] [address] [phone] [id number] Ambar Gagnon Self - patient is the [...] appendectomy 1975 tonsillectomy 1974 vaginal delivery (girl) 1999 vaginal delivery (boy) 1997 vaginal delivery (girl) 1993 vaginal delivery (girl) 1990
--- OUTSIDE RECORDS SUMMARY | 2025-01-17 08:16 | XMS_ITS | Clinical Summary ---
Author Organization [address] [place] [address] [place] [address] Phone Care Team Providers Care Access Database Developer Name Role Phone Marci Reyez MD Primary Care Provider [phone] Allergies No known active allergies Medications No [...] this topic Insurance [employer] Care Teams Access Database Developer Relationship Specialty Start Date End Date Marci Reyez MD [address] [place] [address] [address] [place] PCP - General 07/18/08
--- OUTSIDE RECORDS SUMMARY | 2025-01-17 08:16 | XMS_ITS ---
Author Organization [facility] Address [address] [facility] [address] [place] [address] Care Team Providers Care Car Cleaner Name Role Phone Faye, Kartik Primary Care Provider MONICA Patterson Unavailable [phone] Allergies Allergen (clinical drug ingredient) Drug/Non Drug [...] Date Status Fluorouracil 5 % 1 application Customer Servicer ally once a day for 90 days 12/26/2024 Active Vitamin B Complex - as directed Orally Active amLODIPine Besylate 10 MG 1 tablet Orally Once a day Active Citracal Plus Active Iron 325 (65 Fe) MG 1 tablet Orally Thre e times a Week Active Problems Problem Type SNOMED Code ICD Code Onset Dates Problem Status W/U Status Risk Notes Problem 671389300 Other hammer toe(s) (acquired), right foot (M20.41) Active confirmed Problem 12827856 Other hammer toe(s) (acquired), left foot (M20.42) Active confirmed Vital Signs Temperature 97.1 degrees Fahrenheit 12/27/19 25 Heart Rate 60 /min 12/26/2024 Respiratory Rate 16 /min 12/26/2024 Height 5ft 6in in 12/26/2024 Weight 216.6 lbs 12/26/2024 BMI 34.96 kg/m2 12/26/2024 Encounters Encounter Location Date Provider Diagnosis [facility] [address] [facility] [address] [place] [address] 12/26/2024 MONICALYDIA BOTELLO Other hammer toe(s) (acquired), right foot [...] biomechanical pressures. Using a #15 blade and drapery cutter machine, I debrided the right and left 2nd [...] Date Notes Fluorouracil 5 % 1 application Customer Servicer ally once a day for 90 days [...] biomechanical pressures. Using a #15 blade and drapery cutter machine, I debrided the right and left 2nd [...] Next Appt Details Follow Up: 2-3 months, Erica n: Provider Name:MONICA BOTELLO, 03/06/2025 04:00:00 PM, [address], [address], Progress Notes * Ambar GAGNONDOB:1970 (54 yo F)Acc No.[id number]:12/26/2024 Consult note Patient:?ANGELICA Ambar Provider:?Monica Botello DPM :1970???Age:54 Y???Sex:Female D ate:12/26/2024 Phone: Address:[address] [place], [place] [address] Pcp:Vinny Mckinney Subjective: * Chief Complaints: * [...] biomechanical pressures. Using a #15 blade and drapery cutter machine, I debrided the right and left 2nd [...] talonavicular joint. Pes planus deformity. * Procedure Codes:?94874 X-RAY EXAM OF FOOT 3 Views, Units: 2.00 , Modifiers: 50 60654 DEBRIDE NAIL, 1-5 * Follow Up:?2-3 months * Billing Information: * Visit Code:? 02403 Office Visit, New Pt., Level 3. Modifiers: 25 * Procedure Codes:? 87174 X-RAY EXAM OF FOOT 3 Views. Units: 2.00. Modifiers: 50 79179 DEBRIDE NAIL, 1-5. * Sign off status: Completed true * Provider:?Monica Botello DPM Date:? 12/26/2024 Generated for Huong richards/Dileep/eTransmitting on:?01/17/2025 08:15 AM EDT History and Physical Notes * HPI [...]
== END 2025-01-17 08:48 | disposition home or self-care (01) ==
PROVIDERS: PCP Internal Medicine; Visit Provider Physician Assistant
DX: J06.9 Acute upper respiratory infection, unspecified (principal)

== ENCOUNTER 2025-05-11 08:17 | Outpatient (AMB) | payer OTHER, SELFPAY ==
--- OUTSIDE RECORDS SUMMARY | 2025-02-02 10:00 | XMS_ITS ---
Author Organization [facility] Address [address] [place] [phone] Care Team Providers Care Laser Operator Name Role Phone Vinny Mckinney Primary Care Provider Nicole Hale [phone] Encounters Encounter Location Date Provider Diagnosis [address] [address] 02/02/2025 Nicole Hale Plan Of Treatment No Information Progress Notes * Ambar GAGNONDOB:1970 (54 yo F)Acc No.[id number]:02/02/2025 Progress Notes Patient: Ambar LUKE Provider: Madison Hale DPM :1970 A ge:54 Y S ex:Female Date:02/02/2025 Address:[address] [place], [place] [phone] Pcp:Vinny Mckinney Subjective: * Chief Complaints: * * Medical History: Objective: * Vitals: Assessment: Plan: * Treatment: * Images: * The named appointment provid er may or may not be the originator of this progress note, and it is not deemed complete until electronically signed by the appointment provider. Sign off status: Pending * Provider: Madison Hale DPM Date: 02/02/2025 Generated for Huong richards/Dileep/Prasannaitting on: 05/11/2025 09:16 AM EDT
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
[2025-05-11 08:43] VITALS: BP 124/84; PULSE 69; TEMP 36.2; O2SAT 98; BMI 35.4
--- OUTSIDE RECORDS SUMMARY | 2025-05-11 09:16 | XMS_ITS | Clinical Summary ---
Author Organization [facility] Address [address] [place] [phone] Phone Care Team Providers Care Surgical Nurse Name Role Phone Vinny Mckinney MD Primary Care Provid er Social History Tobacco Use Types Packs/Day Years Used Date Smoking Tobacco: Never Assessed Child or Family Care Answer Date Record ed Do you have problems with on e of the following making it difficult for you to work, study, or receive health care? I choose not to answer 06/11/2024 Education Answer Date Recorded Are you interested in help w ith more adult education (for example, completing high school, GED, job training, learning the [place] language, technical skills, or developing parenting skills)? I choose not to answer 06/11/2024 Are you concerned about learning? Not on file 06/11/2024 No 06/11/2024 Yes 06/11/2024 Food Answer Date Recorded Within the past 6 months we worried whether our food would run out before we got money to buy more. I choose not to answer 06/11/2024 Within the past 6 months the food we bought just didn't last and we didn't have enough money to get more. I choose not to answer 06/11/2024 Residential Stability Answer Date Recor ded What is your housing situation today? I choose n ot to answer 06/11/2024 How many times have you move d in the past 12 months? I choose not to answer 06/11/2024 Paying for Meds Answer Date Recorded Do you have trouble paying for medicines? I lane se not to answer 06/11/2024 Paying Utility Bills Answer Date Record ed Do you have trouble paying y our heating or electricity bill? I choose not to answer 06/11/2024 Transportation Answer Date Recorded Has the lack of transportati on kept you from medical appointments or from getting medications? I choose not to answer 06/11/2024 Digital Access Answer Date Recorded No 06/11/2024 No 06/11/2024 Do you have reliable internet access at home? I choose not to answer 06/11/2024 Do you have a device (e.g., phone, tablet, computer) with a working camera? I choose not to answer 06/11/2024 Comments Unknown Sex and Gender Information Value Date Recorded Sex Assigned at Not on file Legal Sex Female 9:37 PM EDT Gender Identity Not on file Sexual Orientation Not on file Last Filed Vital Signs Vital Sign Reading Time Taken Comments Blood Pressure 120/80 12/05/2024 8:00 AM EDT BP at home Pulse - - Temperature - - Respiratory Rate - - Oxygen Saturation - - Inhaled Oxygen Concentration - - Weight - - Height - - Body Mass Index - - Plan of Treatment Health Maintenance Due Date Last Done Comments Adult Td,Tdap Booster 1970 LIPID PANEL 1968 DEPRESSION SCREENING 1980 SMOKING Hx and SMOKELESS TOBACCO SCREENING 1981 HEPATITIS C SCREENING 1986 HIV ONE-TIME SCREENING (18-65 YEARS) 1986 PAP SMEAR 1989 MAMMOGRAM 2008 COLOGUARD 2013 COLONOSCOPY 2013 COLORECTAL CANCER SCREENING 2013 FIT TEST 2013 FOBT 2013 SIGMOIDOSCOPY 2013 VIRTUAL COLONOSCOPY 2013 PNEUMOCOCCAL VACCINES (50+ years) (1 of 1 - PCV) 2018 ZOSTER VACCINES (1 of 2) 2018 INFLUENZA VACCINE (#1) 2025 4, 06/03/2023, 06/24/2022, Additional history exists COVID-19 VACCINE ( - 2024- season) 2025 10/11/2021, 10/26/2020, 09/28/2020 HEPATITIS A VACCINES Aged Out No long er eligible based on patient's age to complete this topic HIB VACCINES Aged Out No longer eligi ble based on patient's age to complete this topic MENINGOCOCCAL VACCINES (ACWY) Aged Out No longer eligible based on patient's age to complete this topic MENINGOCOCCAL VACCINES (B) Aged Out N o longer eligible based on patient's age to complete this topic Medical Devices Not on file Insurance HEALTH [employer] NET PARTIAL HEALTH SAF[employer]Y NET PARTIAL HEALTH SAF[employer]Y NET PARTIAL HEALTH SAFETY NET PARTIAL HEALTH SAFETY NET PARTIAL HEALTH SAF[employer]Y NET PARTIAL Care Teams Surgical Nurse Relationship Specialty Start Date End Date Vinny Mckinney MD [address] [place] [phone] PCP - General Internal Medicine 06/11/24 Additional Source Comments The information contained in this document represents components of the legal health record. It is not the complete legal health record.[facility]
--- OUTSIDE RECORDS SUMMARY | 2025-05-11 09:16 | XMS_ITS | Clinical Summary ---
Author Organization [address] [place] [address] [place] [phone] Phone Care Team Providers Care Delivery Table Feeder Name Role Phone Marci Reyez MD Primary Care Provider [phone] Allergies No known active allergies Medications No [...] 72 07/16/2024 9:37 AM EST Temperature 36.2 C (97.2 F) 07/16/2024 9:37 AM EST Respiratory Rate - - Oxygen Saturation 99% [...] Panel) 07/29/2022 Colorectal Cancer Screening: Colonoscopy 07/29/2022 HIV Screening 07/29/2022 Hepatitis C Screening 07/29/2022 Social Influencers of Health Screening 07/29/2022 Hypertension/CHF/CAD Annual BMP Blood Test 07/16/2024 Depression Screening 08/31/2024 COVID-19 Vaccine ( season) 2025 10/11/2021 Influenza Vaccine (#1) 2025 4, 06/03/2023, 06/24/2022, Additional history exists HIB Vaccines Aged [...] this topic Insurance [employer] Care Teams Delivery Table Feeder Relationship Specialty Start Date End Date Marci Reyez MD [address] [place] [address] [address] [place] PCP - General 07/18/08
--- OUTSIDE RECORDS SUMMARY | 2025-05-11 09:16 | XMS_ITS | Patient Health Record ---
Author Organization [facility] Address [address] [facility] [address] [place] [address] Care Team Providers Care Automobile Brakes Bonder Name Role Phone Faye, Kartik Primary Care Provider YAMILKA Patterson Unavailable [phone] Allergies Allergen (clinical drug ingredient) Drug/Non Drug Allergy documented on EMR Reaction Allergy Type Onset Date Status angiotensin-converting enzyme inhibitor (FN) SHALONDA Inhibitors anaphylaxis Drug Allergy Acti ve lisinopril Lisinopril anaphylaxis Drug Allergy Act isabel Reason For Referral No Information Medications Medication SIG (Take, Route, Frequency, Duration) Notes Start Date End Date Status Flonase Allergy Relief 50 MCG/ACT 1 spray in each nostril Nasally Twice a day Active amLODIPine Besylate 10 MG 1 tablet Orall y Once a day Active Vitamin B Complex - as directed Orally Active Iron 325 (65 Fe) MG 1 tablet Orally Thre e times a Week Active Citracal Plus Active Fluorouracil 5 % 1 application Automotive Parts Coordinator ally once a day; Duration: 90 days Active Problems Problem Type SNOMED Code ICD Code Onset Dates Problem Status W/U Status Risk Notes Problem Acquired hammer toe of right foot (1181167867945 105) Other hammer toe(s) (acquired), right foot (M20.41) Active confirmed Problem Acquired hammer toe of left foot (0311011986635 103) Other hammer toe(s) (acquired), left foot (M20.42) Active confirmed Vital Signs Heart Rate 75 /min 03/15/2025 Temperature 96.9 degrees Fahrenheit 03/15/2025 Respiratory Rate 16 /min 03/15/2025 Height 5ft 6in in 03/15/2025 Weight 214.8 lbs 03/15/2025 BMI 34.67 kg/m2 03/15/2025 Encounters Encounter Location Date Provider Diagnosis [facility] [address] [address] 12/26/2024 YAMILKA MENDOZA Other hammer toe(s) (acquired), right foot M20.41 ; Other hammer toe(s) (acquired), left foot M20.42 ; Callus of toe L84 ; Dystrophic nail L60.3 ; Pain in right foot M79.671 ; Pain in left foot M79.672 ; Capsulitis of metatarsophalangeal (MTP) joint of left foot M77.52 and Capsulitis of metatarsophalangeal (MTP) joint of right foot M77.51 [facility] [address] 03/15/2025 YAMILKA MENDOZA Other hammer toe(s) (acquired), right foot M20.41 ; Other hammer toe(s) (acquired), left foot M20.42 ; Capsulitis of metatarsophalangeal (MTP) joint of left foot M77.52 ; Capsulitis of metatarsophalangeal (MTP) joint of right foot M77.51 ; Pain in left foot M79.672 ; Pain in right foot M79.671 ; Callus of toe L84 and Dystrophic nail L60.3 [facility] [address] 12/05/2024 YAMILKA MENDOZA Assessments Encounter Date Diagnosis [...] biomechanical pressures. Using a #15 blade and acetylene cutter, I debrided the right and left [...] toe(s) (acquired), left foot (ICD-10 - M20.42) 03/15/2025 Other hammer toe(s) (acquired), right foot (ICD-10 - M20.41) She did receive the orthotics. She did not bring them in today for me to examine. She states they are comfortable, and she wears them in her sneakers. Her toe pain has improved. We discussed her 2nd and 3rd toes are the longest, so they cause the most pressure biomechanically when ambulating and when in shoes. We discussed the flexible hammering of the lesser toes as a result of the arthritis and the 1st metatarsal. We discussed the thickened nails and calluses we discussed they happen due to the biomechanical pressures. Using a #15 blade and acetylene cutter, I debrided the right and left 2nd toenails/calluses, patient tolerated well. I recommended a keratolytic to help reduce the skin build up. RX fluorouracil 5% cream to apply to the right and left 2nd toenails once daily. We discussed she needs to use for the next 9 months. We discussed that next steps could be a procedure for the toes if no improvement or if the toe pain worsens again. I would like to see the patient back in 3 months to check on progress, she is in agreement with this plan. 03/15/2025 Other hammer toe(s) (acquired), left foot (ICD-10 - M20.42) 12/26/2024 Callus of toe (ICD-1 0 - L84) 12/26/2024 Dystrophic nail (ICD-10 - L60.3) 03/15/2025 Capsulitis of metatarsophalangeal (MTP) joint of left foot (ICD-10 - M77.52) 03/15/2025 Capsulitis of metatarsophalangeal (MTP) joint of right foot (ICD-10 - M77.51) 12/26/2024 Pain in right foot (ICD-10 - M79.671) 12/26/2024 Pain in left foot (ICD-10 - M79.672) 03/15/2025 Pain in left foot (ICD-10 - M79.672) 03/15/2025 Pain in right foot (ICD-10 - M79.671) 12/26/2024 Capsulitis of metatarsophalangeal (MTP) joint of left foot (ICD-10 - M77.52) 12/26/2024 Capsulitis of metatarsophalangeal (MTP) joint of right foot (ICD-10 - M77.51) 03/15/2025 Callus of toe (ICD-1 0 - L84) 03/15/2025 Dystrophic nail (ICD-10 - L60.3) Plan Of Treatment Pending Test Test Name Order Date X ray : Foot, left 3v 12/26/2024 X ray : Foot, right 3v 12/26/2024 Next Appt Details Provider Name:YAMILKALYDIA MENDOZA, 06/19/2025 08:30:00 AM, [address] [facility] [address], [place], [address], Insurance Providers Payer Name Payer Address Payer Phone Subscriber Number Group Number Insured Name Patient Relationship to Insured Coverage Start Date Coverage End Date [employer] [address] [place] [phone] [id number] Ambar Gagnon Self - patient is the [...] Colonoscopy 10/05/2020 Vocal cord polypectomy Sleeve gastrectomy 2018 left breast lump/mass excision right knee surgery 2017 Appendectomy 1975 Tonsillectomy 1974 Hospitalization History Reason Date(Month/Year) sleeve gastrectomy 2019 appendectomy 1975 tonsillectomy 1974 vaginal delivery (girl) 1998 vaginal delivery (boy) 1997 vaginal delivery (girl) 1993 vaginal delivery (girl) 1990
--- OUTSIDE RECORDS SUMMARY | 2025-05-11 09:16 | XMS_ITS | Patient Health Record ---
Author Organization [facility] Address [address] [place] [address] Care Team Providers Care Haulage Boss Name Role Phone Vinny Mckinney Primary Care Provider Nicole Hale [phone] Reason For Referral No Information Encounters Encounter Location Date Provider Diagnosis [facility] [address] [place] [address] 12/05/2024 Nicole Hale Plan Of Treatment No Information Insurance Providers Payer Name Payer Address Payer Phone Subscriber Number Group Number Insured Name Patient Relationship to Insured Coverage Start Date [facility]age End Date [facility] [address] [place] [address] [id number] Ambar Gagnon Self - patient is the insured
== END 2025-05-11 09:11 | disposition home or self-care (01) ==
LOC: HO.HMCH 08:18
PROVIDERS: PCP Internal Medicine; Visit Provider Internal Medicine
DX: I10 Essential (primary) hypertension (principal)

== ENCOUNTER 2025-07-05 10:45 | Outpatient (AMB) | payer OTHER, SELFPAY ==
--- OUTSIDE RECORDS SUMMARY | 2025-02-02 09:00 | XMS_ITS ---
Author Organization [facility] Address [address] [place] [address] Care Team Providers Care Geodetic Engineer Name Role Phone Vinny Mckinney Primary Care Provider [phone] Nicole Hale [phone] Encounters Encounter Location Date Provider Diagnosis [address] [address] 02/02/2025 Nicole Hale Plan Of Treatment No Information Progress Notes * Ambar GAGNONDOB:1970 (54 yo F)Acc No.[id number]:02/02/2025 Progress Notes Patient: Ambar LUKE Provider: Madison Hale DPM :1970 A ge:54 Y S ex:Female Date:02/02/2025 Address:[address] [place], [place] [address] Pcp:Vinny Mckinney Subjective: * Chief Complaints: * [...] 0 02/02/2025 Generated for Huong richards/Dileep/Prasannaitting on: 09/04/2024 12:33 PM EST
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
[2025-07-05 11:02] VITALS: BP 130/90; PULSE 59; TEMP 36.3; O2SAT 98; BMI 36.0
--- OUTSIDE RECORDS SUMMARY | 2025-07-05 12:33 | XMS_ITS | Patient Health Record ---
Author Organization [facility] Address [address] [place] [address] Care Team Providers Care Catalyst Plant Supervisor Name Role Phone Vinny Mckinney Primary Care Provider Nicole Hale [phone] Reason For Referral No Information Encounters Encounter Location Date Provider Diagnosis [facility] [address] [place] [address] 12/05/2024 Nicole Hale Plan Of Treatment No Information Insurance Providers Payer Name Payer Address Payer Phone Subscriber Number Group Number Insured Name Patient Relationship to Insured Coverage Start Date Coverage End Date [facility] [address] [place] [address] [id number] Ambar Gagnon Self - patient is the insured
--- OUTSIDE RECORDS SUMMARY | 2025-07-05 12:34 | XMS_ITS | Clinical Summary ---
Author Organization [facility] Address [address] [place] [phone] Phone Care Team Providers Care Graphic Art Designer Name Role Phone Vinny Mckinney MD Primary [...] high school, GED, job training, learning the Niuean language, technical skills, or developing parenting skills)? [...] 06/03/2023, 06/24/2022, Additional history exists COVID-19 VACCINE (4 - 2024- season) 2025 10/11/2021, 10/26/2020, 09/28/2020 RSV VACCINE (1 - 1-dose 75+ series) 2043 HEPATITIS A VACCINES Aged Out No long [...] PARTIAL HEALTH SAFETY NET PARTIAL Care Teams Graphic Art Designer Relationship Specialty Start Date End Date Vinny Mckinney MD [address] [place] [id number] PCP - General Internal Medicine 06/11/24 Additional Source Comments The information contained in this document represents components of the legal health record. It is not the complete legal health record.[facility]
--- OUTSIDE RECORDS SUMMARY | 2025-07-05 12:34 | XMS_ITS | Clinical Summary ---
Author Organization [address] [place] [address] [place] [address] Phone Care Team Providers Care Stringed Instrument Assembler Name Role Phone Marci Reyez MD Primary Care Provider [phone] Allergies No known active allergies Medications No [...] Last Done Comments Breast Cancer Screening 1968 Colorectal Cancer Screening: Colonoscopy 1968 DTaP,Tdap,and Td Vaccines (1 - Tdap) 1987 Hepatitis B Vaccines (1 of 3 - 19+ 3-dose series) 1987 Cervical Cancer Screening: Pap Smear 1989 Pneumococcal Vaccine: 50+ Years (1 of 1 - PCV) 2018 Zoster Vaccines (1 of 2) 2018 HIV Screening 07/29/2022 Hepatitis C Screening 07/29/2022 Social Influencers of Health Screening 07/29/2022 Depression Screening 08/31/2024 COVID-19 Vaccine (2 - season) 2025 10/11/2021 Influenza Vaccine (#1) 2025 4, 06/03/2023, 06/24/2022, Additional history exists RSV Immunization Adult Patients (1 - 1-dose 75+ series) 2043 HIB Vaccines Aged Out No longer eligi [...] this topic Insurance [employer] Care Teams Stringed Instrument Assembler Relationship Specialty Start Date End Date Marci Reyez MD [address] [place] [address] Dr Jose Guadalupe [address] [place], [place] PCP - General 07/18/08
--- OUTSIDE RECORDS SUMMARY | 2025-07-05 12:34 | XMS_ITS | Patient Health Record ---
Author Organization [facility] Address [address] [facility] [address] [place] [address] Care Team Providers Care Hand Pleater Name Role Phone Faye, Kartik Primary Care Provider YAMILKA Patterson Unavailable [phone] Allergies Allergen (clinical drug ingredient) Drug/Non Drug Allergy documented on EMR Reaction Allergy Type Onset Date Status angiotensin-converting enzyme inhibitor (FN) SHALONDA Inhibitors anaphylaxis Drug Allergy Acti ve lisinopril Lisinopril anaphylaxis Drug Allergy Act isabel Reason For Referral No Information Medications Medication SIG (Take, Route, Frequency, Duration) Notes Start Date End Date Status Fluorouracil 5 % 1 application Time Study Statistician ally once a day; Duration: 90 days Active amLODIPine Besylate 10 MG 1 tablet Orall y Once a day Active Citracal Plus Active Imiquimod 5 % 1 application at bed time, leave on for 8 hours then wash off Externally daily; Duration: 30 days Active Flonase Allergy Relief 50 MCG/ACT 1 spray in each nostril Nasally Twice a day Active Vitamin B Complex - as directed Orally Active Iron 325 (65 Fe) MG 1 tablet Orally Thre e times a Week Active Problems Problem Type SNOMED Code ICD Code Onset Dates Problem Status W/U Status Risk Notes Problem Acquired hammer toe of right foot (0530614123290 105) Other hammer toe(s) (acquired), right foot (M20.41) Active confirmed Problem Acquired hammer toe of left foot (3841781670533 103) Other hammer toe(s) (acquired), left foot (M20.42) Active confirmed Vital Signs Heart Rate 68 /min 06/19/2025 Temperature 97.0 degrees Fahrenheit 06/19/2025 Respiratory Rate 12 /min 06/19/2025 Height 5ft 6in in 06/19/2025 Weight 220.2 lbs 06/19/2025 BMI 35.54 kg/m2 06/19/2025 Encounters Encounter Location Date Provider Diagnosis [facility] [address] [address] 12/26/2024 YAMILKA MENDOZA Other hammer toe(s) (acquired), right foot M20.41 ; Other hammer toe(s) (acquired), left foot M20.42 ; Callus of toe L84 ; Dystrophic nail L60.3 ; Pain in right foot M79.671 ; Pain in left foot M79.672 ; Capsulitis of metatarsophalangeal (MTP) joint of left foot M77.52 and Capsulitis of metatarsophalangeal (MTP) joint of right foot M77.51 [facility] [address] [address] 03/15/2025 YAMILKA MENDOZA Other hammer toe(s) (acquired), right foot M20.41 ; Other hammer toe(s) (acquired), left foot M20.42 ; Capsulitis of metatarsophalangeal (MTP) joint of left foot M77.52 ; Capsulitis of metatarsophalangeal (MTP) joint of right foot M77.51 ; Pain in left foot M79.672 ; Pain in right foot M79.671 ; Callus of toe L84 and Dystrophic nail L60.3 [facility] [address] [address] 06/19/2025 YAMILKA MENDOZA Other hammer toe(s) (acquired), right foot M20.41 ; Other hammer toe(s) (acquired), left foot M20.42 ; Capsulitis of metatarsophalangeal (MTP) joint of left foot M77.52 ; Capsulitis of metatarsophalangeal (MTP) joint of right foot M77.51 ; Pain in left foot M79.672 ; Pain in right foot M79.671 ; Callus of toe L84 and Dystrophic nail L60.3 [facility] [address] [address] 12/05/2024 YAMILKA MENDOZA Assessments Encounter Date Diagnosis [...] biomechanical pressures. Using a #15 blade and production cloth cutter, I debrided the right and left [...] biomechanical pressures. Using a #15 blade and production cloth cutter, I debrided the right and left [...] she is in agreement with this plan. 06/19/2025 Other hammer toe(s) (acquired), right foot (ICD-10 - M20.41) She did receive the orthotics. She states they are comfortable, and she [...] biomechanical pressures. Using a #15 blade and production cloth cutter, I debrided the right and left 2nd toenails/calluses, patient tolerated well. I recommended a keratolytic to help reduce the skin build up. RX changed to urea cream to apply to the right and [...] she is in agreement with this plan. 06/19/2025 Other hammer toe(s) (acquired), left foot (ICD-10 - M20.42) 03/15/2025 Other hammer toe(s) (acquired), left foot (ICD-10 - M20.42) 12/26/2024 Callus of toe (ICD-1 0 - L84) 12/26/2024 Dystrophic nail (ICD-10 - L60.3) 03/15/2025 Capsulitis of metatarsophalangeal (MTP) joint of left foot (ICD-10 - M77.52) 06/19/2025 Capsulitis of metatarsophalangeal (MTP) joint of left foot (ICD-10 - M77.52) 03/15/2025 Capsulitis of metatarsophalangeal (MTP) joint of right foot (ICD-10 - M77.51) 06/19/2025 Capsulitis of metatarsophalangeal (MTP) joint of right foot (ICD-10 - M77.51) 12/26/2024 Pain in right foot (ICD-10 - M79.671) 12/26/2024 Pain in left foot (ICD-10 - M79.672) 03/15/2025 Pain in left foot (ICD-10 - M79.672) 06/19/2025 Pain in left foot (ICD-10 - M79.672) 03/15/2025 Pain in right foot (ICD-10 - M79.671) 06/19/2025 Pain in right foot (ICD-10 - M79.671) 12/26/2024 Capsulitis of metatarsophalangeal (MTP) joint of left foot (ICD-10 - M77.52) 12/26/2024 Capsulitis of metatarsophalangeal (MTP) joint of right foot (ICD-10 - M77.51) 03/15/2025 Callus of toe (ICD-1 0 - L84) 06/19/2025 Callus of toe (ICD-1 0 - L84) 06/19/2025 Dystrophic nail (ICD-10 - L60.3) 03/15/2025 Dystrophic nail (ICD-10 - L60.3) Plan Of Treatment Pending Test Test Name Order Date X ray : Foot, left 3v 12/26/2024 X ray : Foot, right 3v 12/26/2024 Insurance Providers Payer Name Payer Address Payer Phone Subscriber Number Group Number Insured Name Patient Relationship to Insured Coverage Start Date Coverage End Date [employer] [address] [place] [address] [id number] Ambar Gagnon Self - patient is the [...]
== END 2025-07-05 11:39 | disposition home or self-care (01) ==
LOC: HO.HMCH 10:45
PROVIDERS: PCP Internal Medicine; Visit Provider Internal Medicine
DX: R51.9 Headache, unspecified (principal)

== ENCOUNTER 2025-07-07 11:55 | Outpatient (REF) | payer OTHER, SELFPAY ==
[2025-07-07 17:53] LABS: MANUAL DIFF FLAG NO
[2025-07-07 18:24] LABS: Alanine Aminotransferase 24 U/L (0-31); Albumin Level 4.2 g/dL (3.5-5.0); Alkaline Phosphatase 75 U/L (39-117); Anion Gap 12 (12-20); Aspartate Amino Transferase 31 U/L (5-31); Blood Urea Nitrogen 15 mg/dL (9-16); Calcium 9.3 mg/dL (8.4-10.2); Carbon Dioxide 25 mmol/L (22-29); Chloride 108 mmol/L (96-108); Estimated Glomerular Filt Rate > 60; Potassium 4.3 mmol/L (3.3-5.1); Sodium 141 mmol/L (135-145); Total Protein 8.6 g/dL (6.5-8.0)
[2025-07-07 18:37] LABS: Hematocrit 36.0 % (37.0-47.0); Hemoglobin 11.5 g/dl (12.0-16.0); Imm Gran Abs Auto 0.02 X10*3/uL (0.00-0.03); Imm Gran Pct Auto 0.4 % (0.0-0.4); Lymphocytes Absolute Auto 1.4 X10*3/uL (1.2-4.9); Mean Corpuscular HGB Conc 31.9 g/dl (31.0-35.0); Mean Corpuscular Hemoglobin 29.5 pg (27.0-33.0); Mean Corpuscular Volume 92.3 fL (80.0-98.0); NRBC Abs Auto 0.000 X10*3/uL (0.0-0.012); NRBC Pct Auto 0.0 /100WBC (0.0-0.2); Platelet Count 168 X10*3/uL (160-400); Red Blood Count 3.90 X10*6/uL (4.20-5.50); White Blood Count 5.4 X10*3/uL (4.8-10.8)
[2025-07-07 18:47] LABS: Folate 7.1 ng/mL (> or = 4.0); Vitamin B12 355 pg/mL (200-900)
[2025-07-08 16:59] LABS: A. Phagocytphilium DNA,RT-PCR NOT DETECTED (NOT DETECTED); Babesia Microti DNA, RT-PCR NOT DETECTED (NOT DETECTED); Borrelia Miyamotoi,DNA RT-PCR NOT DETECTED (NOT DETECTED); E.Chaffeensis DNA RT-PCR NOT DETECTED (NOT DETECTED); Lyme(Borrelia ssp)DNA RT-PCR NOT DETECTED (NOT DETECTED)
== END 2025-07-07 11:56 | disposition home or self-care (01) ==
LOC: HO.HKASLDS 11:55
PROVIDERS: PCP Internal Medicine; Visit Provider Nurse Practitioner Family
DX: R29.810 Facial weakness (principal); H81.10 Benign paroxysmal vertigo, unspecified ear; R06.83 Snoring; G47.9 Sleep disorder, unspecified; G47.19 Other hypersomnia; I10 Essential (primary) hypertension; R51.9 Headache, unspecified
CPT/HCPCS: 36415; 80053; 82607; 82746; 85025; 85652; 86140; 87468; 87469; 87478; 87484; 87798

== ENCOUNTER 2025-07-07 11:55 | Outpatient (AMB) | payer OTHER, SELFPAY ==
--- OUTSIDE RECORDS SUMMARY | 2025-02-02 09:00 | XMS_ITS ---
Author Organization [facility] Address [address] [place] [address] Care Team Providers Care Sizing Sponger Name Role Phone Vinny Mckinney Primary Care Provider [phone] Nicole Hale [phone] Encounters Encounter Location Date Provider Diagnosis [address] [address] 02/02/2025 Nicole Hale Plan Of Treatment No Information Progress Notes * Ambar GAGNONDOB:1970 (54 yo F)Acc No.[id number]:02/02/2025 Progress Notes Patient: Ambar LUKE Provider: Madison Hale DPM :1970 A ge:54 Y S ex:Female Date:02/02/2025 Address:[address] [place], [place] [address] Pcp:Vinny Mckinney Subjective: * Chief Complaints: * [...] 0 02/02/2025 Generated for Huong richards/Dileep/Prasannaitting on: 09/06/2024 02:19 PM EST
[2025-07-07 12:04] VITALS: BP 120/84; PULSE 68; O2SAT 100; BMI 35.5
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
--- OUTSIDE RECORDS SUMMARY | 2025-07-07 14:19 | XMS_ITS | Patient Health Record ---
Author Organization [facility] Address [address] [place] [address] Care Team Providers Care Front End Alignment Specialist Name Role Phone Vinny Mckinney Primary Care Provider [phone] Nicole Hale [phone] Reason For Referral No Information Encounters Encounter Location Date Provider Diagnosis [facility] [address] [place] [address] 12/05/2024 Nicole Hale Plan Of Treatment No Information Insurance Providers Payer Name Payer Address Payer Phone Subscriber Number Group Number Insured Name Patient Relationship to Insured Coverage Start Date Coverage End Date [facility] [address] [place] [address] [phone] [id number] Ambar Gagnon Self - patient is the insured
--- OUTSIDE RECORDS SUMMARY | 2025-07-07 14:20 | XMS_ITS | Clinical Summary ---
Author Organization [facility] Address [address] [place] [id number] Phone Care Team Providers Care Soil Chemist Name Role Phone Vinny Mckinney MD Primary [...] high school, GED, job training, learning the Romanian language, technical skills, or developing parenting skills)? [...] [employer] PARTIAL Care Teams Soil Chemist Relationship Specialty Start Date End Date Vinny Mckinney MD [address] [place] [id number] PCP - General Internal Medicine 06/11/24 Additional Source Comments The information contained in this document represents components of the legal health record. It is not the complete legal health record.[facility]
--- OUTSIDE RECORDS SUMMARY | 2025-07-07 14:20 | XMS_ITS | Patient Health Record ---
Author Organization [facility] Address [address] [place] [address] Care Team Providers Care Motor And Generator Assembler Name Role Phone Faye, Kartik Primary Care Provider YAMILKA Patterson Unavailable [phone] Allergies Allergen (clinical drug ingredient) Drug/Non Drug Allergy documented on EMR Reaction Allergy Type Onset Date Status angiotensin-converting enzyme inhibitor (FN) SHALONDA Inhibitors anaphylaxis Drug Allergy Acti ve lisinopril Lisinopril anaphylaxis Drug Allergy Act isabel Reason For Referral No Information Medications Medication SIG (Take, Route, Frequency, Duration) Notes Start Date End Date Status Fluorouracil 5 % 1 application Surveillance Sensor Officer ally once a day; Duration: 90 days [...] Problem Acquired hammer toe of right foot (5621336502444 105) Other hammer toe(s) (acquired), right foot (M20.41) Active confirmed Problem Acquired hammer toe of left foot (4252126443998 103) Other hammer toe(s) (acquired), left foot (M20.42) Active confirmed Vital Signs Heart Rate 68 /min 06/19/2025 Temperature 97.0 degrees Fahrenheit 06/19/2025 Respiratory Rate 12 /min 06/19/2025 Height 5ft 6in in 06/19/2025 Weight 220.2 lbs 06/19/2025 BMI 35.54 kg/m2 06/19/2025 Encounters Encounter Location Date Provider Diagnosis [facility] [address] [address] 12/26/2024 YAMILKA MENDOZA Other hammer toe(s) (acquired), right foot M20.41 ; Other hammer toe(s) (acquired), left foot M20.42 ; Callus of toe L84 ; Dystrophic nail L60.3 ; Pain in right foot M79.671 ; Pain in left foot M79.672 ; Capsulitis of metatarsophalangeal (MTP) joint of left foot M77.52 and Capsulitis of metatarsophalangeal (MTP) joint of right foot M77.51 [facility] [address] [address] 03/15/2025 YAMILKA MENDOZA Other hammer toe(s) (acquired), right foot M20.41 ; Other hammer toe(s) (acquired), left foot M20.42 ; Capsulitis of metatarsophalangeal (MTP) joint of left foot M77.52 ; Capsulitis of metatarsophalangeal (MTP) joint of right foot M77.51 ; Pain in left foot M79.672 ; Pain in right foot M79.671 ; Callus of toe L84 and Dystrophic nail L60.3 [facility] [address] [address] 06/19/2025 YAMILKA MENDOZA Other hammer toe(s) (acquired), right foot M20.41 ; Other hammer toe(s) (acquired), left foot M20.42 ; Capsulitis of metatarsophalangeal (MTP) joint of left foot M77.52 ; Capsulitis of metatarsophalangeal (MTP) joint of right foot M77.51 ; Pain in left foot M79.672 ; Pain in right foot M79.671 ; Callus of toe L84 and Dystrophic nail L60.3 [facility] [address] [address] 12/05/2024 YAMILKA MENDOZA Assessments Encounter Date Diagnosis [...] biomechanical pressures. Using a #15 blade and portable machine cutter, I debrided the right and left [...] biomechanical pressures. Using a #15 blade and portable machine cutter, I debrided the right and left [...] biomechanical pressures. Using a #15 blade and portable machine cutter, I debrided the right and left [...] Date Coverage End Date [employer] [address] [address] [place] [address] [phone] [id number] Ambar Gagnon Self - patient is the [...]
--- OUTSIDE RECORDS SUMMARY | 2025-07-07 14:20 | XMS_ITS | Clinical Summary ---
Author Organization [address] [place] [address] [place] [phone] Phone Care Team Providers Care Nurse Outreach Case Manager Name Role Phone Marci Reyez MD Primary Care Provider [phone] Allergies No known active allergies Medications No [...] this topic Insurance [employer] Care Teams Nurse Outreach Case Manager Relationship Specialty Start Date End Date Marci Reyez MD [address] [place] [address] Dr Jose Gu[address] [place], [place] PCP - General 07/18/08
== END 2025-07-07 13:34 | disposition home or self-care (01) ==
LOC: HO.HSMS 11:55
PROVIDERS: PCP Internal Medicine; Visit Provider Nurse Practitioner Family
DX: R29.810 Facial weakness (principal); H81.10 Benign paroxysmal vertigo, unspecified ear; R06.83 Snoring; G47.9 Sleep disorder, unspecified
CPT/HCPCS: 99214

== ENCOUNTER 2025-07-13 07:59 | Outpatient (AMB) | payer OTHER, SELFPAY ==
--- OUTSIDE RECORDS SUMMARY | 2025-02-02 09:00 | XMS_ITS ---
Author [facility] Address [address] [place] [address] Care Team Providers Care Supervisor Insecticide Name Role Phone Vinny Mckinney Primary Care Provider Nicole Hale [phone] Encounters Encounter Location Date Provider Diagnosis [address] [address] 02/02/2025 Nicole Hale Plan Of Treatment No Information Progress Notes * Ambar GAGNONDOB:1970 (54 yo F)Acc No.[id number]:02/02/2025 Progress Notes Patient: Ambar LUKE Provider: Madison Hale DPM :1970 A ge:54 Y S ex:Female Date:02/02/2025 Address:[address] [place], [place] [id number] Pcp:Vinny Mckinney Subjective: * Chief Complaints: * [...] 0 02/02/2025 Generated for Huong richards/Dileep/Prasannaitting on: 09/12/2024 08:06 AM EST
[2025-07-13 08:05] VITALS: BP 132/64; PULSE 74; TEMP 36.3; O2SAT 98; BMI 35.9
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
--- OUTSIDE RECORDS SUMMARY | 2025-07-13 08:06 | XMS_ITS | Patient Health Record ---
Author Organization [facility] Address [address] [facility] [address] [place] [address] Care Team Providers Care General Activities Therapist Name Role Phone Faye, Kartik Primary Care Provider YAMILKA Patterson Unavailable [phone] Allergies Allergen (clinical drug ingredient) Drug/Non Drug Allergy documented on EMR Reaction Allergy Type Onset Date Status angiotensin-converting enzyme inhibitor (FN) SHALONDA Inhibitors anaphylaxis Drug Allergy Acti ve lisinopril Lisinopril anaphylaxis Drug Allergy Act isabel Reason For Referral No Information Medications Medication SIG (Take, Route, Frequency, Duration) Notes Start Date End Date Status Fluorouracil 5 % 1 application Gun Barrel Finisher ally once a day; Duration: 90 days [...] Problem Acquired hammer toe of right foot (3933334858170 105) Other hammer toe(s) (acquired), right foot (M20.41) Active confirmed Problem Acquired hammer toe of left foot (4521274712293 103) Other hammer toe(s) (acquired), left foot (M20.42) Active confirmed Vital Signs Heart Rate 68 /min 06/19/2025 Temperature 97.0 degrees Fahrenheit 06/19/2025 Respiratory Rate 12 /min 06/19/2025 Height 5ft 6in in 06/19/2025 Weight 220.2 lbs 06/19/2025 BMI 35.54 kg/m2 06/19/2025 Encounters Encounter Location Date Provider Diagnosis [facility] [address] [address] 12/26/2024 YAMILKA MENDOZA Other hammer toe(s) (acquired), right foot M20.41 ; Other hammer toe(s) (acquired), left foot M20.42 ; Callus of toe L84 ; Dystrophic nail L60.3 ; Pain in right foot M79.671 ; Pain in left foot M79.672 ; Capsulitis of metatarsophalangeal (MTP) joint of left foot M77.52 and Capsulitis of metatarsophalangeal (MTP) joint of right foot M77.51 [facility] [address] [address] 03/15/2025 YAMILKA MENDOZA Other hammer toe(s) (acquired), right foot M20.41 ; Other hammer toe(s) (acquired), left foot M20.42 ; Capsulitis of metatarsophalangeal (MTP) joint of left foot M77.52 ; Capsulitis of metatarsophalangeal (MTP) joint of right foot M77.51 ; Pain in left foot M79.672 ; Pain in right foot M79.671 ; Callus of toe L84 and Dystrophic nail L60.3 [facility] [address] [address] 06/19/2025 YAMILKA MENDOZA Other hammer toe(s) (acquired), right foot M20.41 ; Other hammer toe(s) (acquired), left foot M20.42 ; Capsulitis of metatarsophalangeal (MTP) joint of left foot M77.52 ; Capsulitis of metatarsophalangeal (MTP) joint of right foot M77.51 ; Pain in left foot M79.672 ; Pain in right foot M79.671 ; Callus of toe L84 and Dystrophic nail L60.3 [facility] [address] [address] 12/05/2024 YAMILKA MENDOZA Assessments Encounter Date Diagnosis [...] biomechanical pressures. Using a #15 blade and cord cutter, I debrided the right and left [...] biomechanical pressures. Using a #15 blade and cord cutter, I debrided the right and left [...] biomechanical pressures. Using a #15 blade and cord cutter, I debrided the right and left [...] Date Coverage End Date [employer] [address] [place] [address] [id number] Ambar Gagnon Self - patient is the [...]
--- OUTSIDE RECORDS SUMMARY | 2025-07-13 08:06 | XMS_ITS | Patient Health Record ---
Author Organization [facility] Address [address] [place] [address] Care Team Providers Care Watchmaker Apprentice Name Role Phone Vinny Mckinney Primary Care Provider Nicole Hale [phone] Reason For Referral No Information Encounters Encounter Location Date Provider Diagnosis [facility] [address] [place] [address] 12/05/2024 Nicole Hale Plan Of Treatment No Information Insurance Providers Payer Name Payer Address Payer Phone Subscriber Number Group Number Insured Name Patient Relationship to Insured Coverage Start Date Coverage End Date [facility] [address] [place] [address] [phone] [id number] Ambar Gagnon Self - patient is the insured
--- OUTSIDE RECORDS SUMMARY | 2025-07-13 08:06 | XMS_ITS | Clinical Summary ---
Author Organization [facility] Address [address] [place] [address] Phone Care Team Providers Care Tire Repairman Name Role Phone Vinny Mckinney MD Primary [...] high school, GED, job training, learning the [place] language, technical skills, or developing parenting skills)? [...] patient's age to complete this topic IPV VACCINES Aged Out No longer eligi ble [...] PARTIAL HEALTH SAFETY NET PARTIAL Care Teams Tire Repairman Relationship Specialty Start Date End Date Vinny Mckinney MD [address] [place] [address] PCP - General Internal Medicine 06/11/24 Additional Source Comments The information contained in this document represents components of the legal health record. It is not the complete legal health record.[facility]
== END 2025-07-13 08:32 | disposition home or self-care (01) ==
LOC: HO.HMCH 08:00
PROVIDERS: PCP Internal Medicine; Visit Provider Internal Medicine
DX: T14.8XXA Other injury of unspecified body region, initial encounter (principal)

== ENCOUNTER 2025-07-20 08:22 | Outpatient (REF) | payer OTHER, SELFPAY ==
--- OUTSIDE RECORDS SUMMARY | 2025-02-02 09:00 | XMS_ITS ---
Author Organization [facility] Address [address] [place] [address] Care Team Providers Care Critical Care Nurse Practitioner Name Role Phone Vinny Mckinney Primary Care Provider [phone] Nicole Hale [phone] Encounters Encounter Location Date Provider Diagnosis [address] [address] 02/02/2025 Nicole Hale Plan Of Treatment No Information Progress Notes * Ambar GAGNONDOB:1970 (54 yo F)Acc No.[id number]:02/02/2025 Progress Notes Patient: Ambar LUKE Provider: Madison Hale DPM :1970 A ge:54 Y S ex:Female Date:02/02/2025 Address:[address] [place], [place] [address] Pcp:Vinny Mckinney Subjective: * Chief Complaints: * [...] 0 02/02/2025 Generated for Huong richards/Dileep/Prasannaitting on: 09/19/2024 08:57 AM EST
--- OUTSIDE RECORDS SUMMARY | 2025-07-20 08:57 | XMS_ITS | Clinical Summary ---
Author Organization [facility] Address [address] [place] [address] Phone Care Team Providers Care Relay Associate Name Role Phone Vinny Mckinney MD Primary [...] high school, GED, job training, learning the [place] language, technical skills, or developing parenting [...] PARTIAL HEALTH SAFETY NET PARTIAL Care Teams Relay Associate Relationship Specialty Start Date End Date Vinny Mckinney MD [address] [place] [address] PCP - General Internal Medicine 06/11/24 Additional Source Comments The information contained in this document represents components of the legal health record. It is not the complete legal health record.[facility]
--- OUTSIDE RECORDS SUMMARY | 2025-07-20 08:57 | XMS_ITS | Patient Health Record ---
Author Organization [facility] Address [address] [facility] [address] [place] [address] Care Team Providers Care Studio Sales Associate Name Role Phone Faye, Kartik Primary Care Provider YAMILKA Patterson Unavailable [phone] Allergies Allergen (clinical drug ingredient) Drug/Non Drug Allergy documented on EMR Reaction Allergy Type Onset Date Status angiotensin-converting enzyme inhibitor (FN) SHALONDA Inhibitors anaphylaxis Drug Allergy Acti ve lisinopril Lisinopril anaphylaxis Drug Allergy Act isabel Reason For Referral No Information Medications Medication SIG (Take, Route, Frequency, Duration) Notes Start Date End Date Status Fluorouracil 5 % 1 application Coal Pulverizer Operator ally once a day; Duration: 90 days [...] Problem Acquired hammer toe of right foot (0302208134240 105) Other hammer toe(s) (acquired), right foot (M20.41) Active confirmed Problem Acquired hammer toe of left foot (4550721564110 103) Other hammer toe(s) (acquired), left foot (M20.42) Active confirmed Vital Signs Heart Rate 68 /min 06/19/2025 Temperature 97.0 degrees Fahrenheit 06/19/2025 Respiratory Rate 12 /min 06/19/2025 Height 5ft 6in in 06/19/2025 Weight 220.2 lbs 06/19/2025 BMI 35.54 kg/m2 06/19/2025 Encounters Encounter Location Date Provider Diagnosis [facility] [address] [address] 12/26/2024 YAMILKA MENDOZA Other hammer toe(s) (acquired), right foot M20.41 ; Other hammer toe(s) (acquired), left foot M20.42 ; Callus of toe L84 ; Dystrophic nail L60.3 ; Pain in right foot M79.671 ; Pain in left foot M79.672 ; Capsulitis of metatarsophalangeal (MTP) joint of left foot M77.52 and Capsulitis of metatarsophalangeal (MTP) joint of right foot M77.51 [facility] [address] [address] 03/15/2025 YAMILKA MENDOZA Other hammer toe(s) (acquired), right foot M20.41 ; Other hammer toe(s) (acquired), left foot M20.42 ; Capsulitis of metatarsophalangeal (MTP) joint of left foot M77.52 ; Capsulitis of metatarsophalangeal (MTP) joint of right foot M77.51 ; Pain in left foot M79.672 ; Pain in right foot M79.671 ; Callus of toe L84 and Dystrophic nail L60.3 [facility] [address] [address] 06/19/2025 YAMILKA MENDOZA Other hammer toe(s) (acquired), right foot M20.41 ; Other hammer toe(s) (acquired), left foot M20.42 ; Capsulitis of metatarsophalangeal (MTP) joint of left foot M77.52 ; Capsulitis of metatarsophalangeal (MTP) joint of right foot M77.51 ; Pain in left foot M79.672 ; Pain in right foot M79.671 ; Callus of toe L84 and Dystrophic nail L60.3 [facility] [address] [address] 12/05/2024 YAMILKA MENDOZA Assessments Encounter Date Diagnosis [...] Date Coverage End Date [employer] [address] [place] [address] [phone] [id number] Ambar Gagnon Self - patient is the [...]
--- OUTSIDE RECORDS SUMMARY | 2025-07-20 08:57 | XMS_ITS | Patient Health Record ---
Author Organization [facility] Address [address] [place] [id number] Care Team Providers Care Gear Generator Set Up Operator Name Role Phone Vinny Mckinney Primary Care Provider Nicole Hale [phone] Reason For Referral No Information Encounters Encounter Location Date Provider Diagnosis [facility] [address] [place] [address] 12/05/2024 Nicole Hale Plan Of Treatment No Information Insurance Providers Payer Name Payer Address Payer Phone Subscriber Number Group Number Insured Name Patient Relationship to Insured Coverage Start Date [facility]age End Date [facility] [address] [place] [address] [id number] Ambar Gagnon Self - patient is the insured
[2025-07-20 09:07] LABS: Hematocrit 34.4 % (37.0-47.0); Hemoglobin 11.2 g/dl (12.0-16.0); Mean Corpuscular HGB Conc 32.6 g/dl (31.0-35.0); Mean Corpuscular Hemoglobin 30.5 pg (27.0-33.0); Mean Corpuscular Volume 93.7 fL (80.0-98.0); NRBC Abs Auto 0.000 X10*3/uL (0.0-0.012); NRBC Pct Auto 0.0 /100WBC (0.0-0.2); Platelet Count 193 X10*3/uL (160-400); Red Blood Count 3.67 X10*6/uL (4.20-5.50); White Blood Count 4.0 X10*3/uL (4.8-10.8)
[2025-07-20 09:21] LABS: Appearance Urine Clear; Glucose Urine UA Negative (Negative); PH 7.0 (5.0-9.0); Specific Gravity - Urine 1.020 (1.005-1.025); UMIC TRIGGER UA YES
[2025-07-20 09:34] LABS: Alanine Aminotransferase 23 U/L (0-31); Albumin Level 4.0 g/dL (3.5-5.0); Alkaline Phosphatase 67 U/L (39-117); Anion Gap 13 (12-20); Aspartate Amino Transferase 26 U/L (5-31); Blood Urea Nitrogen 18 mg/dL (9-16); Calcium 9.5 mg/dL (8.4-10.2); Carbon Dioxide 28 mmol/L (22-29); Chloride 107 mmol/L (96-108); Cholesterol 172 mg/dL (<200); Estimated Glomerular Filt Rate > 60; HDL Cholesterol 48 mg/dL (>40); Lipase 22 U/L (8-78); Potassium 4.5 mmol/L (3.3-5.1); Sodium 143 mmol/L (135-145); Total Protein 8.3 g/dL (6.5-8.0); Triglycerides 91 mg/dL (<150)
[2025-07-20 09:52] LABS: Thyroid Stimulating Hormone 1.13 uIU/mL (0.32-4.0)
== END 2025-07-20 08:23 | disposition home or self-care (01) ==
LOC: HO.LAB 08:22
PROVIDERS: PCP Internal Medicine; Visit Provider Internal Medicine
DX: K85.90 Acute pancreatitis without necrosis or infection, unspecified (principal); F32.89 Other specified depressive episodes; R51.9 Headache, unspecified; H81.10 Benign paroxysmal vertigo, unspecified ear
CPT/HCPCS: 36415; 80048; 80061; 80076; 81001; 83690; 84443; 85027

== ENCOUNTER 2025-07-20 08:52 | Outpatient (AMB) | payer OTHER, SELFPAY ==
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
[2025-07-20 08:56] VITALS: BP 136/80; PULSE 76; TEMP 36.2; O2SAT 97; BMI 34.6
== END 2025-07-20 09:22 | disposition home or self-care (01) ==
LOC: HO.HMCH 08:53
PROVIDERS: PCP Internal Medicine; Visit Provider Internal Medicine
DX: H81.10 Benign paroxysmal vertigo, unspecified ear (principal)

== ENCOUNTER 2025-07-22 09:47 | Outpatient (REF) | payer OTHER, SELFPAY ==
--- OUTSIDE RECORDS SUMMARY | 2025-02-02 09:00 | XMS_ITS ---
Author Organization [facility] Address [address] [place] [phone] Care Team Providers Care Clinical Program Director Name Role Phone Vinny Mckinney Primary Care Provider [phone] Nicole Hale [phone] Encounters Encounter Location Date Provider Diagnosis [address] [address] 02/02/2025 Nicole Hale Plan Of Treatment No Information Progress Notes * Ambar GAGNONDOB:1970 (54 yo F)Acc No.[id number]:02/02/2025 Progress Notes Patient: Ambar LUKE Provider: Madison Hale DPM :1970 A ge:54 Y S ex:Female Date:02/02/2025 Address:[address] [place], [place] [id number] Pcp:Vinny Mckinney Subjective: * Chief Complaints: * [...] 0 02/02/2025 Generated for Huong richards/Dileep/Prasannaitting on: 09/21/2024 09:50 AM EST
--- OUTSIDE RECORDS SUMMARY | 2025-07-22 09:50 | XMS_ITS | Patient Health Record ---
Author Organization [facility] Address [address] [place] [phone] Care Team Providers Care Information Technology Project Manager Name Role Phone Vinny Mckineny Primary Care Provider [phone] Nicole Hale [phone] Reason For Referral No Information Encounters Encounter Location Date Provider Diagnosis [facility] [address] [place] [address] 12/05/2024 Nicole Hale Plan Of Treatment No Information Insurance Providers Payer Name Payer Address Payer Phone Subscriber Number Group Number Insured Name Patient Relationship to Insured Coverage Start Date Coverage End Date [facility] [address] [place] [address] [id number] Ambar Gagnon Self - patient is the insured
--- OUTSIDE RECORDS SUMMARY | 2025-07-22 09:51 | XMS_ITS | Patient Health Record ---
Author Organization [facility] Address [address] [facility] [address] [place] [address] Care Team Providers Care Career Services Assistant Name Role Phone Faye, Kartik Primary Care Provider YAMILKA Patterson Unavailable [phone] Allergies Allergen (clinical drug ingredient) Drug/Non Drug Allergy documented on EMR Reaction Allergy Type Onset Date Status angiotensin-converting enzyme inhibitor (FN) SHALONDA Inhibitors anaphylaxis Drug Allergy Acti ve lisinopril Lisinopril anaphylaxis Drug Allergy Act isabel Reason For Referral No Information Medications Medication SIG (Take, Route, Frequency, Duration) Notes Start Date End Date Status Fluorouracil 5 % 1 application Instructor Dramatic Arts ally once a day; Duration: 90 days [...] Problem Acquired hammer toe of right foot (0535335501087 105) Other hammer toe(s) (acquired), right foot (M20.41) Active confirmed Problem Acquired hammer toe of left foot (0099775551257 103) Other hammer toe(s) (acquired), left foot (M20.42) Active confirmed Vital Signs Heart Rate 68 /min 06/19/2025 Temperature 97.0 degrees Fahrenheit 06/19/2025 Respiratory Rate 12 /min 06/19/2025 Height 5ft 6in in 06/19/2025 Weight 220.2 lbs 06/19/2025 BMI 35.54 kg/m2 06/19/2025 Encounters Encounter Location Date Provider Diagnosis [facility] [address] [address] 12/26/2024 YAMILKA MENDOZA Other hammer toe(s) (acquired), right foot M20.41 ; Other hammer toe(s) (acquired), left foot M20.42 ; Callus of toe L84 ; Dystrophic nail L60.3 ; Pain in right foot M79.671 ; Pain in left foot M79.672 ; Capsulitis of metatarsophalangeal (MTP) joint of left foot M77.52 and Capsulitis of metatarsophalangeal (MTP) joint of right foot M77.51 [facility] [address] [address] 03/15/2025 YAMILKA MENDOZA Other hammer toe(s) (acquired), right foot M20.41 ; Other hammer toe(s) (acquired), left foot M20.42 ; Capsulitis of metatarsophalangeal (MTP) joint of left foot M77.52 ; Capsulitis of metatarsophalangeal (MTP) joint of right foot M77.51 ; Pain in left foot M79.672 ; Pain in right foot M79.671 ; Callus of toe L84 and Dystrophic nail L60.3 [facility] [address] [address] 06/19/2025 YAMILKA MENDOZA Other hammer toe(s) (acquired), right foot M20.41 ; Other hammer toe(s) (acquired), left foot M20.42 ; Capsulitis of metatarsophalangeal (MTP) joint of left foot M77.52 ; Capsulitis of metatarsophalangeal (MTP) joint of right foot M77.51 ; Pain in left foot M79.672 ; Pain in right foot M79.671 ; Callus of toe L84 and Dystrophic nail L60.3 [facility] [address] [address] 12/05/2024 YAMILKA MENDOZA Assessments Encounter Date Diagnosis [...] biomechanical pressures. Using a #15 blade and drum reel cutter, I debrided the right and left [...] biomechanical pressures. Using a #15 blade and drum reel cutter, I debrided the right and left [...] biomechanical pressures. Using a #15 blade and drum reel cutter, I debrided the right and left [...] of right foot (ICD-10 - M77.51) 03/15/2025 Capsulitis of metatarsophalangeal (MTP) joint of right foot (ICD-10 - M77.51) 12/26/2024 Pain in right foot (ICD-10 - M79.671) 12/26/2024 Pain in left foot (ICD-10 - M79.672) 03/15/2025 Pain in left foot (ICD-10 - M79.672) 06/19/2025 Pain in left foot (ICD-10 - M79.672) 06/19/2025 Pain in right foot (ICD-10 - M79.671) 03/15/2025 Pain in right foot (ICD-10 - [...] Date Coverage End Date [employer] [address] [address] [place] [address] [id number] Ambar Gagnon Self - patient is the [...]
--- OUTSIDE RECORDS SUMMARY | 2025-07-22 09:51 | XMS_ITS | Clinical Summary ---
Author Organization [facility] Address [address] [place] [phone] Phone Care Team Providers Care Financial Recording Clerk Name Role Phone Vinny Mckinney MD Primary [...] PARTIAL HEALTH SAF[employer]Y NET PARTIAL Care Teams Financial Recording Clerk Relationship Specialty Start Date End Date Vinny Mckinney MD [address] [place] [id number] PCP - General Internal Medicine 06/11/24 Additional Source Comments The information contained in this document represents components of the legal health record. It is not the complete legal health record.[facility]
--- OUTSIDE RECORDS SUMMARY | 2025-07-22 09:51 | XMS_ITS | Clinical Summary ---
Author Organization [address] [place] [address] [place] [phone] Phone Care Team Providers Care Die Maker Stamping Name Role Phone Marci Reyez MD Primary [...] this topic Insurance [employer] Care Teams Die Maker Stamping Relationship Specialty Start Date End Date Marci Reyez MD [address] [place] [address] Dr Jose Guadalupe [address] [place], [place] PCP - General 07/18/08
[2025-07-22 11:00] LABS: Appearance Urine Clear; Glucose Urine UA Negative (Negative); PH 6.5 (5.0-9.0); Specific Gravity - Urine 1.015 (1.005-1.025); UMIC TRIGGER UA YES
[2025-07-22 11:24] LABS: HBS Num1 1.35 mIU/mL (0-7.99); HBc Num1 0.24 S/CO (0.00-0.79); HBsAGNum1 0.47 S/CO (0.00-0.99); Hepatitis A Antibody IgM 0.15 Index (0-0.79); Hepatitis B Surface Antigen Negative (Negative); ~HepC Num1 0.12 S/CO (0.00-0.79); ~Hepatitis A Antibody IgM Nonreactive (Nonreactive); ~Hepatitis B Surface Antibody NONREACTIVE (Nonreactive); ~Hepatitis C Antibody Nonreactive (Nonreactive)
[2025-07-26 21:39] LABS: Antibody to SS-A Antigen >8.0 POS AI (<1.0 NEG); Antibody to SS-B Antigen <1.0 NEG AI (<1.0 NEG); Proteinase 3 PR3 Antibodies <1.0 AI
[2025-07-26 22:08] LABS: Anti Nuclear Antibody Screen POSITIVE (NEGATIVE); Anti Nuclear Antibody Titer 1:160 titer
== END 2025-07-22 09:48 | disposition home or self-care (01) ==
LOC: HO.LAB 09:47
PROVIDERS: PCP Internal Medicine; Visit Provider Nurse Practitioner Family
DX: Z01.84 Encounter for antibody response examination (principal); R70.0 Elevated erythrocyte sedimentation rate; R51.9 Headache, unspecified; F32.89 Other specified depressive episodes
CPT/HCPCS: 36415; 81001; 81003; 82164; 85652; 86021; 86038; 86039; 86140; 86160; 86225; 86235; 86704; 86706; 86709; 86803; 87340

== ENCOUNTER 2025-08-09 09:05 | Outpatient (AMB) | payer OTHER, SELFPAY ==
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
[2025-08-09 09:16] VITALS: BP 123/65; PULSE 77; BMI 36.1
== END 2025-08-09 09:41 | disposition home or self-care (01) ==
LOC: HO.HGS 09:06
PROVIDERS: PCP Internal Medicine; Visit Provider Surgery
DX: R51.9 Headache, unspecified (principal)
CPT/HCPCS: 99203

== ENCOUNTER 2025-08-11 12:40 | Outpatient (AMB) | payer OTHER, SELFPAY ==
--- OUTSIDE RECORDS SUMMARY | 2025-02-02 09:00 | XMS_ITS ---
[facility] Organization [facility] Address [address] [place] [id number] Care Team Providers Care Veterinary Technician Instructor Name Role Phone Vinny Mckinney Primary Care Provider Nicole Hale [phone] Encounters Encounter Location Date Provider Diagnosis [address] [address] 02/02/2025 Nicole Hale Plan Of Treatment No Information Progress Notes * Ambar GAGNONDOB:1970 (54 yo F)Acc No.[id number]:02/02/2025 Progress Notes Patient: Ambar LUKE Provider: Madison Hale DPM :1970 A ge:54 Y S ex:Female Date:02/02/2025 Address:[address] [place], [place] [id number] Pcp:Vinny Mckinney Subjective: * Chief Complaints: * [...] 0 02/02/2025 Generated for Huong richards/Dileep/Prasannaitting on: 10/12/2024 06:08 PM EST
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
--- OUTSIDE RECORDS SUMMARY | 2025-08-11 18:08 | XMS_ITS | Patient Health Record ---
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 [address] [place] [address] [phone] [id number] Ambar Gagnon Self - patient is the insured
--- OUTSIDE RECORDS SUMMARY | 2025-08-11 18:09 | XMS_ITS | Patient Health Record ---
Author Organization [facility] Address [address] [place] [address] Care Team Providers Care Card Tape Converter Operator Name Role Phone Faye, Kartik Primary Care Provider YAMILKA Patterson Unavailable [phone] Allergies Allergen (clinical drug ingredient) Drug/Non Drug Allergy documented on EMR Reaction Allergy Type Onset Date Status angiotensin-converting enzyme inhibitor (FN) SHALONDA Inhibitors anaphylaxis Drug Allergy Acti ve lisinopril Lisinopril anaphylaxis Drug Allergy Act isabel Reason For Referral No Information Medications Medication SIG (Take, Route, Frequency, Duration) Notes Start Date End Date Status Fluorouracil 5 % 1 application Oil Winterizer ally once a day; Duration: 90 days [...] Problem Acquired hammer toe of right foot ([id number] 105) Other hammer toe(s) (acquired), right foot (M20.41) Active confirmed Problem Acquired hammer toe of left foot (3946874163083 103) Other hammer toe(s) (acquired), left foot (M20.42) Active confirmed Vital Signs Heart Rate 68 /min 06/19/2025 Temperature 97.0 degrees Fahrenheit 06/19/2025 Respiratory Rate 12 /min 06/19/2025 Height 5ft 6in in 06/19/2025 Weight 220.2 lbs 06/19/2025 BMI 35.54 kg/m2 06/19/2025 Encounters Encounter Location Date Provider Diagnosis [facility] [address] [address] 12/26/2024 YAMILKA MENDOZA Other hammer toe(s) (acquired), right foot M20.41 ; Other hammer toe(s) (acquired), left foot M20.42 ; Callus of toe L84 ; Dystrophic nail L60.3 ; Pain in right foot M79.671 ; Pain in left foot M79.672 ; Capsulitis of metatarsophalangeal (MTP) joint of left foot M77.52 and Capsulitis of metatarsophalangeal (MTP) joint of right foot M77.51 [facility] [address] [address] 03/15/2025 YAMILKA MENDOZA Other hammer toe(s) (acquired), right foot M20.41 ; Other hammer toe(s) (acquired), left foot M20.42 ; Capsulitis of metatarsophalangeal (MTP) joint of left foot M77.52 ; Capsulitis of metatarsophalangeal (MTP) joint of right foot M77.51 ; Pain in left foot M79.672 ; Pain in right foot M79.671 ; Callus of toe L84 and Dystrophic nail L60.3 [facility] [address] [address] 06/19/2025 YAMILKA MENDOZA Other hammer toe(s) (acquired), right foot M20.41 ; Other hammer toe(s) (acquired), left foot M20.42 ; Capsulitis of metatarsophalangeal (MTP) joint of left foot M77.52 ; Capsulitis of metatarsophalangeal (MTP) joint of right foot M77.51 ; Pain in left foot M79.672 ; Pain in right foot M79.671 ; Callus of toe L84 and Dystrophic nail L60.3 [facility] [address] [address] 12/05/2024 YAMILKA MENDOZA Assessments Encounter Date Diagnosis [...] biomechanical pressures. Using a #15 blade and gutter mouth cutter, I debrided the right and left [...] biomechanical pressures. Using a #15 blade and gutter mouth cutter, I debrided the right and left [...] biomechanical pressures. Using a #15 blade and gutter mouth cutter, I debrided the right and left [...] Date Coverage End Date [employer] [address] [place] [address] [id number] Ambar Gagnon Self - patient is the [...]
--- OUTSIDE RECORDS SUMMARY | 2025-08-11 18:09 | XMS_ITS | Clinical Summary ---
Author Organization [facility] Address [address] [place] [address] Phone Care Team Providers Care Route Delivery Driver Name Role Phone Vinny Mckinney MD Primary [...] high school, GED, job training, learning the Martiniquais language, technical skills, or developing parenting skills)? [...] PARTIAL HEALTH SAFETY NET PARTIAL Care Teams Route Delivery Driver Relationship Specialty Start Date End Date Vinny Mckinney MD [address] [place] [address] PCP - General Internal Medicine 06/11/24 Additional Source Comments The information contained in this document represents components of the legal health record. It is not the complete legal health record.[facility]
--- OUTSIDE RECORDS SUMMARY | 2025-08-11 18:09 | XMS_ITS | Clinical Summary ---
Author Organization [address] [place] [address] [place] [address] Phone Care Team Providers Care Timber Trimmer Name Role Phone Marci Reyez MD Primary Care Provider [phone] Allergies No known active allergies Medications No [...] this topic Insurance DIVERSIFIED ADMINISTRATORS Care Teams Timber Trimmer Relationship Specialty Start Date End Date Marci Reyez MD [address] [place] [address] Dr Jose Guadalupe [address] [place], [place] PCP - General 07/18/08
== END 2025-08-11 15:12 | disposition home or self-care (01) ==
LOC: HO.HSMS 12:40
PROVIDERS: PCP Internal Medicine; Visit Provider Nurse Practitioner Family
DX: R51.9 Headache, unspecified (principal); H81.10 Benign paroxysmal vertigo, unspecified ear; R29.810 Facial weakness; R70.0 Elevated erythrocyte sedimentation rate; R90.82 White matter disease, unspecified; R79.82 Elevated C-reactive protein (CRP); R06.83 Snoring; G47.9 Sleep disorder, unspecified; G47.19 Other hypersomnia
CPT/HCPCS: 99214

== ENCOUNTER 2025-08-14 13:14 | Outpatient (REF) | payer OTHER, SELFPAY ==
--- OUTSIDE RECORDS SUMMARY | 2025-02-02 09:00 | XMS_ITS ---
Author Organization [facility] Address [address] [place] [phone] Care Team Providers Care Project Controls Scheduler Name Role Phone Vinny Mckinney Primary Care Provider [phone] Nicole Hale [phone] Encounters Encounter Location Date Provider Diagnosis [address] [address] 02/02/2025 Nicole Hale Plan Of Treatment No Information Progress Notes * Ambar GAGNONDOB:1970 (54 yo F)Acc No.[id number]:02/02/2025 Progress Notes Patient: Ambar LUKE Provider: Madison Hale DPM :1970 A ge:54 Y S ex:Female Date:02/02/2025 Address:[address] [place], [place] [phone] Pcp:Vinny Mckinney Subjective: * Chief Complaints: * [...] 0 02/02/2025 Generated for Huong richards/Dileep/Prasannaitting on: 10/15/2024 07:13 PM EST
[2025-08-14 18:19] LABS: MANUAL DIFF FLAG NO
[2025-08-14 18:29] LABS: Hematocrit 34.4 % (37.0-47.0); Hemoglobin 11.0 g/dl (12.0-16.0); Imm Gran Abs Auto 0.04 X10*3/uL (0.00-0.03); Imm Gran Pct Auto 0.4 % (0.0-0.4); Lymphocytes Absolute Auto 1.1 X10*3/uL (1.2-4.9); Mean Corpuscular HGB Conc 32.0 g/dl (31.0-35.0); Mean Corpuscular Hemoglobin 30.1 pg (27.0-33.0); Mean Corpuscular Volume 94.0 fL (80.0-98.0); NRBC Abs Auto 0.000 X10*3/uL (0.0-0.012); NRBC Pct Auto 0.0 /100WBC (0.0-0.2); Platelet Count 221 X10*3/uL (160-400); Red Blood Count 3.66 X10*6/uL (4.20-5.50); White Blood Count 10.8 X10*3/uL (4.8-10.8)
[2025-08-14 19:03] LABS: Anion Gap 10 (12-20); Blood Urea Nitrogen 17 mg/dL (9-16); Calcium 9.3 mg/dL (8.4-10.2); Carbon Dioxide 27 mmol/L (22-29); Chloride 106 mmol/L (96-108); Estimated Glomerular Filt Rate 58; Potassium 3.4 mmol/L (3.3-5.1); Sodium 140 mmol/L (135-145)
--- OUTSIDE RECORDS SUMMARY | 2025-08-14 19:13 | XMS_ITS | Patient Health Record ---
Author Organization [facility] Address [address] [place] [phone] Care Team Providers Care Certified Hand Therapist Name Role Phone Vinny Mckinney Primary Care Provider Nicole Hale [phone] Reason For Referral No Information Encounters Encounter Location Date Provider Diagnosis [facility] [address] [place] [address] 12/05/2024 Nicole Hale Plan Of Treatment No Information Insurance Providers Payer Name Payer Address Payer Phone Subscriber Number Group Number Insured Name Patient Relationship to Insured Coverage Start Date Coverage End Date [facility] [address] [place] [address] [id number] Ambar Gagnon Self - patient is the insured
--- OUTSIDE RECORDS SUMMARY | 2025-08-14 19:14 | XMS_ITS | Clinical Summary ---
Author Organization [address] [place] [address] [place] [phone] Phone Care Team Providers Care Ux Visual Designer Name Role Phone Marci Reyez MD Primary Care Provider [phone] Allergies No known active allergies Medications No [...] this topic Insurance [employer] ADMINISTRAT[employer] Care Teams Ux Visual Designer Relationship Specialty Start Date End Date Marci Reyez MD [address] [place] [address] Dr Jose Guadalupe [address] [place], [place] PCP - General 07/18/08
--- OUTSIDE RECORDS SUMMARY | 2025-08-14 19:14 | XMS_ITS | Patient Health Record ---
Author Organization [facility] Address [address] [facility] [address] [place] [address] Care Team Providers Care Dietitian Therapeutic Name Role Phone Faye, Kartik Primary Care Provider YAMILKA Patterson Unavailable [phone] Allergies Allergen (clinical drug ingredient) Drug/Non Drug Allergy documented on EMR Reaction Allergy Type Onset Date Status angiotensin-converting enzyme inhibitor (FN) SHALONDA Inhibitors anaphylaxis Drug Allergy Acti ve lisinopril Lisinopril anaphylaxis Drug Allergy Act isabel Reason For Referral No Information Medications Medication SIG (Take, Route, Frequency, Duration) Notes Start Date End Date Status Fluorouracil 5 % 1 application Bottoming Machine Operator ally once a day; Duration: 90 [...] Problem Acquired hammer toe of right foot (8706238608714 105) Other hammer toe(s) (acquired), right foot (M20.41) Active confirmed Problem Acquired hammer toe of left foot (9822178784013 103) Other hammer toe(s) (acquired), left foot (M20.42) Active confirmed Vital Signs Heart Rate 68 /min 06/19/2025 Temperature 97.0 degrees Fahrenheit 06/19/2025 Respiratory Rate 12 /min 06/19/2025 Height 5ft 6in in 06/19/2025 Weight 220.2 lbs 06/19/2025 BMI 35.54 kg/m2 06/19/2025 Encounters Encounter Location Date Provider Diagnosis [facility] [address] [address] 12/26/2024 YAMILKA MENDOZA Other hammer toe(s) (acquired), right foot M20.41 ; Other hammer toe(s) (acquired), left foot M20.42 ; Callus of toe L84 ; Dystrophic nail L60.3 ; Pain in right foot M79.671 ; Pain in left foot M79.672 ; Capsulitis of metatarsophalangeal (MTP) joint of left foot M77.52 and Capsulitis of metatarsophalangeal (MTP) joint of right foot M77.51 [facility] [address] [address] 03/15/2025 YAMILKA MENDOZA Other hammer toe(s) (acquired), right foot M20.41 ; Other hammer toe(s) (acquired), left foot M20.42 ; Capsulitis of metatarsophalangeal (MTP) joint of left foot M77.52 ; Capsulitis of metatarsophalangeal (MTP) joint of right foot M77.51 ; Pain in left foot M79.672 ; Pain in right foot M79.671 ; Callus of toe L84 and Dystrophic nail L60.3 [facility] [address] [address] 06/19/2025 YAMILKA MENDOZA Other hammer toe(s) (acquired), right foot M20.41 ; Other hammer toe(s) (acquired), left foot M20.42 ; Capsulitis of metatarsophalangeal (MTP) joint of left foot M77.52 ; Capsulitis of metatarsophalangeal (MTP) joint of right foot M77.51 ; Pain in left foot M79.672 ; Pain in right foot M79.671 ; Callus of toe L84 and Dystrophic nail L60.3 [facility] [address] [address] 12/05/2024 YAMILKA MENDOZA Assessments Encounter Date Diagnosis [...] biomechanical pressures. Using a #15 blade and haircutter, I debrided the right and left 2nd [...] biomechanical pressures. Using a #15 blade and haircutter, I debrided the right and left 2nd [...] biomechanical pressures. Using a #15 blade and haircutter, I debrided the right and left 2nd [...] Date Coverage End Date [employer] [address] [place] [address] [id number] Ambar Gagnon Self - patient is the [...]
--- OUTSIDE RECORDS SUMMARY | 2025-08-14 19:14 | XMS_ITS | Clinical Summary ---
Author Organization [facility] Address [address] [place] [address] Phone Care Team Providers Care Forms Builder Name Role Phone Vinny Mckinney MD Primary [...] high school, GED, job training, learning the Japanese language, technical skills, or developing parenting skills)? [...] PARTIAL HEALTH SAFETY NET PARTIAL Care Teams Forms Builder Relationship Specialty Start Date End Date Vinny Mckinney MD [address] [place] [id number] PCP - General Internal Medicine 06/11/24 Additional Source Comments The information contained in this document represents components of the legal health record. It is not the complete legal health record.[facility]
== END 2025-08-14 13:15 | disposition home or self-care (01) ==
LOC: HO.HKASLDS 13:14
PROVIDERS: PCP Internal Medicine; Visit Provider Nurse Practitioner Family
DX: R70.0 Elevated erythrocyte sedimentation rate (principal); R79.82 Elevated C-reactive protein (CRP); H81.10 Benign paroxysmal vertigo, unspecified ear; R51.9 Headache, unspecified
CPT/HCPCS: 36415; 80048; 85025; 85652; 86140

== ENCOUNTER 2025-08-15 10:44 | Outpatient (REF) | payer OTHER, SELFPAY | END 2025-08-15 10:45 | disposition home or self-care (01) | LOC: HO.LNP 10:44 | PROVIDERS: Advanced Practice Midwife; PCP Internal Medicine; Visit Provider Student in an Organized Health Care Education/Training Program | DX: Z01.419 Encounter for gynecological examination (general) (routine) without abnormal findings (principal); R51.9 Headache, unspecified; M31.6 Other giant cell arteritis | CPT/HCPCS: 87626; 88175 ==

== ENCOUNTER 2025-08-15 10:44 | Outpatient (AMB) | payer OTHER, SELFPAY ==
--- OUTSIDE RECORDS SUMMARY | 2025-02-02 09:00 | XMS_ITS ---
Author [facility] Address [address] [place] [address] Care Team Providers Care Tassel Clipper Name Role Phone Vinny Mckinney Primary Care Provider Nicole Hale [phone] Encounters Encounter Location Date Provider Diagnosis [address] [address] 02/02/2025 Nicole Hale Plan Of Treatment No Information Progress Notes * Ambar GAGNONDOB:1970 (54 yo F)Acc No.[id number]:02/02/2025 Progress Notes Patient: Ambar LUKE Provider: Madison Hale DPM :1970 A ge:54 Y S ex:Female Date:02/02/2025 Address:[address] [place], [place] [address] Pcp:Vinny Mckinney Subjective: * Chief Complaints: * * Medical History: Objective: * Vitals: Assessment: Plan: * Treatment: * Images: * The named appointment provid er may or may not be the originator of this progress note, and it is not deemed complete until electronically signed by the appointment provider. Sign off status: Pending * Provider: Madison Hale DPM Date: 0 02/02/2025 Generated for Huong richards/Dileep/Prasannaitting on: 10/16/2024 01:46 PM EST
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
[2025-08-15 11:00] VITALS: BP 134/82; PULSE 82; O2SAT 98; BMI 35.8
--- OUTSIDE RECORDS SUMMARY | 2025-08-15 13:47 | XMS_ITS | Patient Health Record ---
Author Organization [facility] Address [address] [place] [address] Care Team Providers Care Bar Supervisor Name Role Phone Vinny Mckinney Primary Care Provider [phone] Nicole Hale [phone] Reason For Referral No Information Encounters Encounter Location Date Provider Diagnosis [facility] [address] [place] [address] 12/05/2024 Nicole Hale Plan Of Treatment No Information Insurance Providers Payer Name Payer Address Payer Phone Subscriber Number Group Number Insured Name Patient Relationship to Insured Coverage Start Date Coverage End Date [facility] [address] [place] [address] [phone] [id number] Ambar Gagnon Self - patient is the insured
--- OUTSIDE RECORDS SUMMARY | 2025-08-15 13:47 | XMS_ITS | Patient Health Record ---
Author Organization [facility] Address [address] [facility] [address] [place] [address] Care Team Providers Care Disassembler Product Name Role Phone Faye, Kartik Primary Care Provider YAMILKA Patterson Unavailable [phone] Allergies Allergen (clinical drug ingredient) Drug/Non Drug Allergy documented on EMR Reaction Allergy Type Onset Date Status angiotensin-converting enzyme inhibitor (FN) SHALONDA Inhibitors anaphylaxis Drug Allergy Acti ve lisinopril Lisinopril anaphylaxis Drug Allergy Act isabel Reason For Referral No Information Medications Medication SIG (Take, Route, Frequency, Duration) Notes Start Date End Date Status Fluorouracil 5 % 1 application Truck Driving ally once a day; Duration: 90 days [...] Problem Acquired hammer toe of right foot (9965639928321 105) Other hammer toe(s) (acquired), right foot (M20.41) Active confirmed Problem Acquired hammer toe of left foot (8959390634590 103) Other hammer toe(s) (acquired), left foot (M20.42) Active confirmed Vital Signs Heart Rate 68 /min 06/19/2025 Temperature 97.0 degrees Fahrenheit 06/19/2025 Respiratory Rate 12 /min 06/19/2025 Height 5ft 6in in 06/19/2025 Weight 220.2 lbs 06/19/2025 BMI 35.54 kg/m2 06/19/2025 Encounters Encounter Location Date Provider Diagnosis [facility] [address] [address] 12/26/2024 YAMILKA MENDOZA Other hammer toe(s) (acquired), right foot M20.41 ; Other hammer toe(s) (acquired), left foot M20.42 ; Callus of toe L84 ; Dystrophic nail L60.3 ; Pain in right foot M79.671 ; Pain in left foot M79.672 ; Capsulitis of metatarsophalangeal (MTP) joint of left foot M77.52 and Capsulitis of metatarsophalangeal (MTP) joint of right foot M77.51 [facility] [address] [address] 03/15/2025 YAMILKA MENDOZA Other hammer toe(s) (acquired), right foot M20.41 ; Other hammer toe(s) (acquired), left foot M20.42 ; Capsulitis of metatarsophalangeal (MTP) joint of left foot M77.52 ; Capsulitis of metatarsophalangeal (MTP) joint of right foot M77.51 ; Pain in left foot M79.672 ; Pain in right foot M79.671 ; Callus of toe L84 and Dystrophic nail L60.3 [facility] [address] [address] 06/19/2025 YAMILKA MENDOZA Other hammer toe(s) (acquired), right foot M20.41 ; Other hammer toe(s) (acquired), left foot M20.42 ; Capsulitis of metatarsophalangeal (MTP) joint of left foot M77.52 ; Capsulitis of metatarsophalangeal (MTP) joint of right foot M77.51 ; Pain in left foot M79.672 ; Pain in right foot M79.671 ; Callus of toe L84 and Dystrophic nail L60.3 [facility] [address] [address] 12/05/2024 YAMILKA MENDOZA Assessments Encounter Date Diagnosis [...] pressures. Using a #15 blade and nail artist, I debrided the right and left 2nd [...] pressures. Using a #15 blade and nail artist, I debrided the right and left 2nd [...] pressures. Using a #15 blade and nail artist, I debrided the right and left 2nd [...] Date Coverage End Date [employer] [address] [place] [phone] [id number] Ambar Gagnon Self - patient is the [...]
--- OUTSIDE RECORDS SUMMARY | 2025-08-15 13:47 | XMS_ITS | Clinical Summary ---
Author Organization [address] [place] [address] [place] [address] Phone Care Team Providers Care Sole Leveler Name Role Phone Marci Reyez MD Primary Care Provider [phone] Allergies No known active allergies Medications No [...] this topic Insurance [employer] Care Teams Sole Leveler Relationship Specialty Start Date End Date Marci Reyez MD [address] [place] [address] Dr Jose Guadalupe [address] [place], [place] PCP - General 07/18/08
--- OUTSIDE RECORDS SUMMARY | 2025-08-15 13:47 | XMS_ITS | Clinical Summary ---
Author Organization [facility] Address [address] [place] [address] Phone Care Team Providers Care Shower Enclosure Installer Name Role Phone Vinny Mckinney MD Primary [...] high school, GED, job training, learning the Belgian language, technical skills, or developing parenting skills)? [...] PARTIAL HEALTH SAFETY NET PARTIAL Care Teams Shower Enclosure Installer Relationship Specialty Start Date End Date Vinny Mckinney MD [address] [place] [address] PCP - General Internal Medicine 06/11/24 Additional Source Comments The information contained in this document represents components of the legal health record. It is not the complete legal health record.[facility]
== END 2025-08-15 11:43 | disposition home or self-care (01) ==
LOC: HO.RHES 10:45
PROVIDERS: PCP Internal Medicine; Visit Provider Student in an Organized Health Care Education/Training Program
DX: R51.9 Headache, unspecified (principal)
CPT/HCPCS: 99204

== ENCOUNTER 2025-08-15 14:29 | Outpatient (AMB) | payer OTHER, SELFPAY ==
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
[2025-08-15 15:39] VITALS: BP 126/74; BMI 35.7
== END 2025-08-15 15:32 | disposition home or self-care (01) ==
LOC: HO.HWSM 14:29
PROVIDERS: PCP Internal Medicine; Visit Provider Advanced Practice Midwife
DX: Z01.419 Encounter for gynecological examination (general) (routine) without abnormal findings (principal); Z12.39 Encounter for other screening for malignant neoplasm of breast; Z12.4 Encounter for screening for malignant neoplasm of cervix; N95.1 Menopausal and female climacteric states
CPT/HCPCS: 99396; 99459

== ENCOUNTER 2025-08-15 15:51 | Outpatient (REF) | payer OTHER, SELFPAY ==
[2025-08-16 06:38] LABS: Follicle Stimulating Hormone 82.7 mIU/mL
== END 2025-08-15 15:52 | disposition home or self-care (01) ==
LOC: HO.HKASLDS 15:51
PROVIDERS: PCP Internal Medicine; Visit Provider Advanced Practice Midwife
DX: N95.1 Menopausal and female climacteric states (principal)
CPT/HCPCS: 36415; 83001

== ENCOUNTER 2025-08-16 09:27 | Outpatient (REF) | payer OTHER, SELFPAY ==
--- OUTSIDE RECORDS SUMMARY | 2025-02-02 09:00 | XMS_ITS ---
Author Organization [facility] Address [address] [place] [address] Care Team Providers Care Day Worker Name Role Phone Vinny Mckinney Primary Care Provider Nicole Hale [phone] Encounters Encounter Location Date Provider Diagnosis [address] [address] 02/02/2025 Nicole Hale Plan Of Treatment No Information Progress Notes * Ambar GAGNONDOB:1970 (54 yo F)Acc No.[id number]:02/02/2025 Progress Notes Patient: Ambar LUKE Provider: Madison Hale DPM :1970 A ge:54 Y S ex:Female Date:02/02/2025 Address:[address] [place], [place] [address] Pcp:Vinny Mckinney Subjective: * Chief Complaints: * [...] 0 02/02/2025 Generated for Huong richards/Dileep/Prasannaitting on: 10/17/2024 10:50 AM EST
--- NOTE | ~2025-08-16 | US_ITS ---
EXAMINATION(S): 1. MM DIAGNOSTIC DIGITAL BREAST TOMOSYNTHESIS, BILATERAL 2. TARGETED ULTRASOUND OF THE LEFT BREAST CLINICAL INFORMATION: Left breast pain. According to patient, there are two areas of pain in the left breast. COMPARISON: Comparison made to multiple prior, most recent November 18, 2024, and most remote September 10, 2019. TECHNIQUE: Digital breast tomosynthesis is performed in both the mediolateral oblique and craniocaudal views along with computer-aided detection (CAD). Synthesized 2D images are generated from the tomosynthesis. Two triangular skin markers were placed in the left breast, indicating the location of the pain. FINDINGS: BREAST COMPOSITION: There are scattered areas of fibroglandular density. RIGHT BREAST: No significant masses, suspicious calcifications or other abnormalities are seen. LEFT BREAST: No significant masses, suspicious calcifications or other abnormalities are seen. In particular, no suspicious mammographic findings adjacent to the triangular skin markers. Targeted ultrasound of the left breast was performed at the location of the focal pain as indicated by the patient. The survey centered at 4 o'clock position 9 cm from the nipple and at 12 o'clock position 4 cm from the nipple did not reveal suspicious sonographic findings. US/US Breast LT Limited Mamm Only IMPRESSION: RIGHT BREAST: Negative, no mammographic evidence of malignancy. Normal interval follow-up is recommended in 12 months. LEFT BREAST: Negative, no evidence of malignancy. In particular, no suspicious findings to accounts for patient's focal pain at two areas of the left breast. Clinical follow-up is recommended, otherwise, normal interval follow-up mammogram is recommended in 12 months. ASSESSMENT: BI-RADS: Category 1: Negative RECOMMENDATION: 1. Patient should be managed based on the clinical impression. 2. Otherwise, routine annual screening mammography. Results were provided to the patient at time of visit by the technologist. This patient's information was entered into a reminder system with a target due date for their next mammogram. Electronically signed by: Bartolo Arriaga MD 08/16/2025 12:06 PM JOÃO
--- OUTSIDE RECORDS SUMMARY | 2025-08-16 10:50 | XMS_ITS | Clinical Summary ---
Author Organization [address] [place] [address] [place] [address] Phone Care Team Providers Care Overlock Sleeve Setter Name Role Phone Marci Reyez MD Primary Care Provider [phone] Allergies No known active allergies Medications No [...] this topic Insurance [employer] Care Teams Overlock Sleeve Setter Relationship Specialty Start Date End Date Marci Reyez MD [address] [place] [address] Dr Jose Guadalupe [address] [place], [place] PCP - General 07/18/08
--- OUTSIDE RECORDS SUMMARY | 2025-08-16 10:50 | XMS_ITS | Clinical Summary ---
Author Organization [facility] Address [address] [place] [address] Phone Care Team Providers Care Hot Stick Man Name Role Phone Vinny Mckinney MD Primary [...] high school, GED, job training, learning the Jamaican language, technical skills, or developing parenting skills)? [...] PARTIAL HEALTH SAFETY NET PARTIAL Care Teams Hot Stick Man Relationship Specialty Start Date End Date Vinny Mckinney MD [address] [place] [address] PCP - General Internal Medicine 06/11/24 Additional Source Comments The information contained in this document represents components of the legal health record. It is not the complete legal health record.[facility]
--- OUTSIDE RECORDS SUMMARY | 2025-08-16 10:50 | XMS_ITS | Patient Health Record ---
Author Organization [facility] Address [address] [place] [address] Care Team Providers Care Blooming Mill Supervisor Name Role Phone Vinny Mckinney Primary Care Provider Nicole Hale [phone] Reason For Referral No Information Encounters Encounter Location Date Provider Diagnosis [facility] [address] [place] [address] 12/05/2024 Nicole Hale Plan Of Treatment No Information Insurance Providers Payer Name Payer Address Payer Phone Subscriber Number Group Number Insured Name Patient Relationship to Insured Coverage Start Date Coverage End Date [facility] [address] [place] [address] [id number] Ambar Gagnon Self - patient is the insured
--- OUTSIDE RECORDS SUMMARY | 2025-08-16 10:50 | XMS_ITS | Patient Health Record ---
Author Organization [facility] Address [address] [facility] [address] [place] [address] Care Team Providers Care Superintendent Car Construction Name Role Phone Faye, Kartik Primary Care Provider YAMILKA Patterson Unavailable [phone] Allergies Allergen (clinical drug ingredient) Drug/Non Drug Allergy documented on EMR Reaction Allergy Type Onset Date Status angiotensin-converting enzyme inhibitor (FN) SHALONDA Inhibitors anaphylaxis Drug Allergy Acti ve lisinopril Lisinopril anaphylaxis Drug Allergy Act isabel Reason For Referral No Information Medications Medication SIG (Take, Route, Frequency, Duration) Notes Start Date End Date Status Fluorouracil 5 % 1 application Bus Person ally once a day; Duration: 90 days [...] Problem Acquired hammer toe of right foot (3208148911863 105) Other hammer toe(s) (acquired), right foot (M20.41) Active confirmed Problem Acquired hammer toe of left foot (8872420526932 103) Other hammer toe(s) (acquired), left foot (M20.42) Active confirmed Vital Signs Heart Rate 68 /min 06/19/2025 Temperature 97.0 degrees Fahrenheit 06/19/2025 Respiratory Rate 12 /min 06/19/2025 Height 5ft 6in in 06/19/2025 Weight 220.2 lbs 06/19/2025 BMI 35.54 kg/m2 06/19/2025 Encounters Encounter Location Date Provider Diagnosis [facility] [address] [address] 12/26/2024 YAMILKA MENDOZA Other hammer toe(s) (acquired), right foot M20.41 ; Other hammer toe(s) (acquired), left foot M20.42 ; Callus of toe L84 ; Dystrophic nail L60.3 ; Pain in right foot M79.671 ; Pain in left foot M79.672 ; Capsulitis of metatarsophalangeal (MTP) joint of left foot M77.52 and Capsulitis of metatarsophalangeal (MTP) joint of right foot M77.51 [facility] [address] [address] 03/15/2025 YAMILKA MENDOZA Other hammer toe(s) (acquired), right foot M20.41 ; Other hammer toe(s) (acquired), left foot M20.42 ; Capsulitis of metatarsophalangeal (MTP) joint of left foot M77.52 ; Capsulitis of metatarsophalangeal (MTP) joint of right foot M77.51 ; Pain in left foot M79.672 ; Pain in right foot M79.671 ; Callus of toe L84 and Dystrophic nail L60.3 [facility] [address] [address] 06/19/2025 YAMILKA MENDOZA Other hammer toe(s) (acquired), right foot M20.41 ; Other hammer toe(s) (acquired), left foot M20.42 ; Capsulitis of metatarsophalangeal (MTP) joint of left foot M77.52 ; Capsulitis of metatarsophalangeal (MTP) joint of right foot M77.51 ; Pain in left foot M79.672 ; Pain in right foot M79.671 ; Callus of toe L84 and Dystrophic nail L60.3 [facility] [address] [address] 12/05/2024 YAMILKA MENDOZA Assessments Encounter Date Diagnosis [...] biomechanical pressures. Using a #15 blade and stencil cutter, I debrided the right and left [...] biomechanical pressures. Using a #15 blade and stencil cutter, I debrided the right and left [...] biomechanical pressures. Using a #15 blade and stencil cutter, I debrided the right and left [...] Date Coverage End Date [employer] BASS [address] [place] [address] [id number] Ambar Gagnon Self - patient is the [...]
== END 2025-08-16 09:28 | disposition home or self-care (01) ==
LOC: HO.MAMMO 09:27
PROVIDERS: PCP Internal Medicine; Visit Provider Internal Medicine
DX: N64.4 Mastodynia (principal)
CPT/HCPCS: 76642; 77062; 77066

== ENCOUNTER → 2025-08-16 10:00 | Outpatient (BNV) | payer OTHER, SELFPAY | PROVIDERS: PCP Internal Medicine; Visit Provider Radiology Body Imaging | DX: N64.4 Mastodynia (principal) | CPT/HCPCS: 76642; 77062; 77066 ==

== ENCOUNTER 2025-08-18 10:51 | Day surgery (SDC) | payer OTHER, SELFPAY ==
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
[2025-08-18 11:24] VITALS: BMI 36.2
--- NOTE | 2025-08-18 11:30 | MHC.SHP ---
Pre-Procedural Eval Section A - 24 Hr Update-Section A only Date of Service: 08/18/25 The patient is an INPATIENT: No The patient has been examined within 24 hours of the surgical procedure. The History & Physical has been completed within 30 days and I have reviewed it.: Yes Section B - Complete if H&P > 30 days Chief Complaint: Headache, unspecified Allergies: Allergies Allergy/AdvReac Type Severity Reaction Status Date / Time SHALONDA Inhibitors (SHALONDA Allergy Severe ANAPHYLAXIS Verified 08/15/25 10:59 INHIBITORS) baclofen Allergy Intermediate shakes Verified 08/15/25 10:59 lisinopril Allergy Unknown Anaphylaxis Verified 08/15/25 10:59 Plan I have reviewed the history and physical and performed a pertinent physical examination on my patient. No changes have occurred unless specified. Time Spent With Patient Time: Total time managing care of this patient today ____ minutes.
[2025-08-18 11:32] VITALS: BP 136/84; PULSE 71; RESP 16; TEMP 36.6; O2SAT 97
[2025-08-18] MEDS: Lactated Ringers 1,000 ML 100 ML IVCONT (11:52)
[2025-08-18 13:10] VITALS: BP 115/77; PULSE 61; RESP 12; TEMP 36.3; O2SAT 98
--- NOTE | 2025-08-18 13:17 | P.OP_ITS ---
Operative Note Operative Note Date of Service: 08/18/25 Narrative: Preop diagnosis: headache, rule out temporal arteritis Postop diagnosis: The same Procedure: Right temporal artery biopsy Surgeon: Dustin Nicolas MD Supervisor Labor Gang: KAYLA Urena The patient is a 51-year-old female referred to me for right temporal artery biopsy. She understood the technique of the planned procedure as well as the risks, benefits, and alternatives She was brought to the operating room placed supine under monitored anesthesia care. A surgical time-out was done. The right temporal area was prepped and draped in usual sterile fashion. The patient received cefazolin preoperatively I palpated the planned line of incision. I used the Doppler as well and identified the pulsatile area of the right temporal region. I marked this and infiltrated this has with lidocaine 1%. I made an incision using blade 15. This carried down with electrocautery through the full-thickness of the skin through the subcutaneous fat periodically using the Doppler to guide our incision. I was then able to identify a bleeding area with a blood vessel consistent with an artery. I gently dissected this with hemostats. I clamped this proximal distal hemostats. I transected a 1 cm segment using Metzenbaum scissors 1 cm leg segment. I tied the divided segment with Polysorb 3-0 ties. I irrigated there was no obvious bleeding. I reapposed the deep subcutaneous layer Polysorb 3-0 simple interrupted sutures. Skin closure was achieved with Polysorb 4-0 subcuticular sutures as well. The area was infiltrated with Marcaine 0.5% for postop analgesia. Dressings were applied and the procedure was completed The patient tolerated procedure well. There were no immediate complications. Initial and final counts of sponges and instruments were correct. There was minimal blood loss. The patient is then transferred to the recovery room with stable vital signs
[2025-08-18 13:25] VITALS: BP 127/82; PULSE 61; RESP 16; O2SAT 99
[2025-08-18 13:40] VITALS: BP 139/80; PULSE 54; RESP 16; TEMP 36.6; O2SAT 99
== END 2025-08-18 14:34 | disposition home or self-care (01) ==
PROVIDERS: PCP Internal Medicine; Visit Provider Surgery
PROC: (CPT 37609; principal; 2025-08-18 12:50)
DX: R51.9 Headache, unspecified (principal); R70.0 Elevated erythrocyte sedimentation rate; R79.82 Elevated C-reactive protein (CRP); R42 Dizziness and giddiness; R53.83 Other fatigue; E66.812 Obesity, class 2; Z68.36 Body mass index [BMI] 36.0-36.9, adult; R91.1 Solitary pulmonary nodule; I10 Essential (primary) hypertension; J45.909 Unspecified asthma, uncomplicated; Z79.899 Other long term (current) drug therapy; Z90.3 Acquired absence of stomach [part of]; Z98.84 Bariatric surgery status; Z88.8 Allergy status to other drugs, medicaments and biological substances; Z98.890 Other specified postprocedural states
CPT/HCPCS: 37609; 88305; J0131; J0690; J1010; J1100; J2003; J2250; J2405; J2704; J2795; J3010

== ENCOUNTER → 2025-08-18 10:51 | Outpatient (BNV) | payer OTHER, SELFPAY | PROVIDERS: PCP Internal Medicine; Visit Provider Surgery | DX: R51.9 Headache, unspecified (principal) | CPT/HCPCS: 37609 ==

== ENCOUNTER → 2025-08-21 10:59 | Outpatient (BNV) | payer OTHER, SELFPAY | PROVIDERS: PCP Internal Medicine; Visit Provider Radiology Diagnostic Radiology | DX: R51.9 Headache, unspecified (principal); R42 Dizziness and giddiness | CPT/HCPCS: 70544; 70553 ==

== ENCOUNTER 2025-08-21 11:03 | Outpatient (REF) | payer OTHER, SELFPAY ==
--- OUTSIDE RECORDS SUMMARY | 2025-02-02 09:00 | XMS_ITS ---
Author Organization [facility] Address [address] [place] [address] Care Team Providers Care Tin Can Feeder Name Role Phone Vinny Mckinney Primary Care Provider Nicole Hale [phone] Encounters Encounter Location Date Provider Diagnosis [address] [address] 02/02/2025 Nicole Hale Plan Of Treatment No Information Progress Notes * Ambar GAGNONDOB:1970 (54 yo F)Acc No.[id number]:02/02/2025 Progress Notes Patient: Ambar LUKE Provider: Madison Hale DPM :1970 A ge:54 Y S ex:Female Date:02/02/2025 Address:[address] [place], [place] [id number] Pcp:Vinny Mckinney Subjective: * Chief Complaints: * [...] 0 02/02/2025 Generated for Huong richards/Dileep/Prasannaitting on: 10/22/2024 01:58 PM EST
--- NOTE | ~2025-08-21 | MR_ITS ---
EXAMINATION: MRI brain and MRA brain. CLINICAL INDICATION: Light-sensitive. 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 Presents with dizziness and headache. COMPARISON: Nothing recent. TECHNIQUE: Routine MRI isotope is brain were obtained without and with intravenous administration of 10 and left Gadavist. Subsequently 3 oowo-qy-wvkcby MRI sequences of brain were obtained without contrast. FINDINGS: MRI BRAIN: There is no restricted diffusion seen to suspect any acute ischemic changes. There is no paramagnetic artifact seen to suspect any acute or chronic hemorrhagic products. There are scattered T2 FLAIR foci in in deep white matter both cerebral hemispheres without mass effect or edema. Some of the foci appear perpendicular to lateral ventricle suspicious for demyelination. The lateral ventricles are symmetrical in size and configuration without enlargement. Normal flow-void signal seen in major cerebral vasculature. Bilateral paranasal sinuses and mastoid air sinuses are well-aerated. There is a 1.4 cm round dizziness lesion along the right posterior foramen magnum questioning synovial cyst. It is best visualized on axial T2 sequence slice 1/21 and mild enhancement on postcontrast axial slice 1/26. Visualized bony calvarium and the scalp soft tissues are normal. MRA BRAIN: There is widely patent bilateral internal carotid artery with bifurcation and anterior middle cerebral arteries and the branches. No evidence of aneurysm or AVM seen. There is no atherosclerotic narrowing. Absent. The anterior ring artery is small but patent. Both vertebral arteries are codominant and moderate into a normal basilar artery. There is normal basilar artery branches without narrowing. Bilateral posterior communicating arteries are absent. Visualized extracranial vasculature is grossly unremarkable however suboptimally visualized. The major venous sinuses are patent. MR/MR head/brain wo/w con IMPRESSION: No acute intracranial process seen. No acute bleed, infarct or abnormal enhancement. There are scattered T2 FLAIR foci in the subcortical and deep white matter both cerebral hemispheres without any enhancement. Electronically signed by: Robbin Marshall MD 08/21/2025 04:27 PM EST
--- NOTE | ~2025-08-21 | MR_ITS ---
EXAMINATION: MRI brain and MRA brain. CLINICAL INDICATION: Light-sensitive. 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 Presents with dizziness and headache. COMPARISON: Nothing recent. TECHNIQUE: Routine MRI isotope is brain were obtained without and with intravenous administration of 10 and left Gadavist. Subsequently 3 [id number]-oj-ajyqpw MRI sequences of brain were obtained without contrast. FINDINGS: MRI BRAIN: There is no restricted diffusion seen to suspect any acute ischemic changes. There is no paramagnetic artifact seen to suspect any acute or chronic hemorrhagic products. There are scattered T2 FLAIR foci in in deep white matter both cerebral hemispheres without mass effect or edema. Some of the foci appear perpendicular to lateral ventricle suspicious for demyelination. The lateral ventricles are symmetrical in size and configuration without enlargement. Normal flow-void signal seen in major cerebral vasculature. Bilateral paranasal sinuses and mastoid air sinuses are well-aerated. There is a 1.4 cm round dizziness lesion along the right posterior foramen magnum questioning synovial cyst. It is best visualized on axial T2 sequence slice 1/21 and mild enhancement on postcontrast axial slice 1/26. Visualized bony calvarium and the scalp soft tissues are normal. MRA BRAIN: There is widely patent bilateral internal carotid artery with bifurcation and anterior middle cerebral arteries and the branches. No evidence of aneurysm or AVM seen. There is no atherosclerotic narrowing. Absent. The anterior ring artery is small but patent. Both vertebral arteries are codominant and moderate into a normal basilar artery. There is normal basilar artery branches without narrowing. Bilateral posterior communicating arteries are absent. Visualized extracranial vasculature is grossly unremarkable however suboptimally visualized. The major venous sinuses are patent. MR/MR angio head wo con IMPRESSION: No acute intracranial process seen. No acute bleed, infarct or abnormal enhancement. There are scattered T2 FLAIR foci in the subcortical and deep white matter both cerebral hemispheres without any enhancement. Electronically signed by: Robbin Marshall MD 08/21/2025 04:27 PM EST
--- OUTSIDE RECORDS SUMMARY | 2025-08-21 13:58 | XMS_ITS | Clinical Summary ---
Author Organization [address] [place] [address] [place] [address] Phone Care Team Providers Care Spring Floor Service Worker Name Role Phone Marci Reyez MD Primary Care Provider [phone] Allergies No known active allergies Medications No [...] this topic Insurance [employer] ADMIN[employer]RAT[employer] Care Teams Spring Floor Service Worker Relationship Specialty Start Date End Date Marci Reyez MD [address] [place] [address] Dr Jose Guadalupe [address] [place], [place] PCP - General 07/18/08
--- OUTSIDE RECORDS SUMMARY | 2025-08-21 13:58 | XMS_ITS | Patient Health Record ---
Author Organization [facility] Address [address] [facility] [address] [place] [address] Care Team Providers Care Media/Instructional Designer Name Role Phone Faye, Kartik Primary Care Provider YAMILKA Patterson Unavailable [phone] Allergies Allergen (clinical drug ingredient) Drug/Non Drug Allergy documented on EMR Reaction Allergy Type Onset Date Status angiotensin-converting enzyme inhibitor (FN) SHALONDA Inhibitors anaphylaxis Drug Allergy Acti ve lisinopril Lisinopril anaphylaxis Drug Allergy Act isabel Reason For Referral No Information Medications Medication SIG (Take, Route, Frequency, Duration) Notes Start Date End Date Status Fluorouracil 5 % 1 application Correctional Manager ally once a day; Duration: 90 days [...] Problem Acquired hammer toe of right foot (8264940789800 105) Other hammer toe(s) (acquired), right foot (M20.41) Active confirmed Problem Acquired hammer toe of left foot (6368406376922 103) Other hammer toe(s) (acquired), left foot (M20.42) Active confirmed Vital Signs Heart Rate 68 /min 06/19/2025 Temperature 97.0 degrees Fahrenheit 06/19/2025 Respiratory Rate 12 /min 06/19/2025 Height 5ft 6in in 06/19/2025 Weight 220.2 lbs 06/19/2025 BMI 35.54 kg/m2 06/19/2025 Encounters Encounter Location Date Provider Diagnosis [facility] [address] [address] 12/26/2024 YAMILKA MENDOZA Other hammer toe(s) (acquired), right foot M20.41 ; Other hammer toe(s) (acquired), left foot M20.42 ; Callus of toe L84 ; Dystrophic nail L60.3 ; Pain in right foot M79.671 ; Pain in left foot M79.672 ; Capsulitis of metatarsophalangeal (MTP) joint of left foot M77.52 and Capsulitis of metatarsophalangeal (MTP) joint of right foot M77.51 [facility] [address] [address] 03/15/2025 YAMILKA MENDOZA Other hammer toe(s) (acquired), right foot M20.41 ; Other hammer toe(s) (acquired), left foot M20.42 ; Capsulitis of metatarsophalangeal (MTP) joint of left foot M77.52 ; Capsulitis of metatarsophalangeal (MTP) joint of right foot M77.51 ; Pain in left foot M79.672 ; Pain in right foot M79.671 ; Callus of toe L84 and Dystrophic nail L60.3 [facility] [address] [address] 06/19/2025 YAMILKA MENDOZA Other hammer toe(s) (acquired), right foot M20.41 ; Other hammer toe(s) (acquired), left foot M20.42 ; Capsulitis of metatarsophalangeal (MTP) joint of left foot M77.52 ; Capsulitis of metatarsophalangeal (MTP) joint of right foot M77.51 ; Pain in left foot M79.672 ; Pain in right foot M79.671 ; Callus of toe L84 and Dystrophic nail L60.3 [facility] [address] [address] 12/05/2024 YAMILKA MENDOZA Assessments Encounter Date Diagnosis [...] biomechanical pressures. Using a #15 blade and timber cutter, I debrided the right and left [...] biomechanical pressures. Using a #15 blade and timber cutter, I debrided the right and left [...] biomechanical pressures. Using a #15 blade and timber cutter, I debrided the right and left [...] Date Coverage End Date [employer] [address] [address] [place] [address] [phone] [id number] Ambar Gagnon Self - patient is the [...]
--- OUTSIDE RECORDS SUMMARY | 2025-08-21 13:58 | XMS_ITS | Patient Health Record ---
Author Organization [facility] Address [address] [place] [address] Care Team Providers Care Twenty One Dealer Name Role Phone Vinny Mckinney Primary Care Provider Nicole Hale [phone] Reason For Referral No Information Encounters Encounter Location Date Provider Diagnosis [facility] [address] [place] [address] 12/05/2024 Nicole Hale Plan Of Treatment No Information Insurance Providers Payer Name Payer Address Payer Phone Subscriber Number Group Number Insured Name Patient Relationship to Insured Coverage Start Date [facility]age End Date [facility] [address] [place] [address] [id number] Ambar Gagnon Self - patient is the insured
--- OUTSIDE RECORDS SUMMARY | 2025-08-21 13:58 | XMS_ITS | Clinical Summary ---
Author Organization [facility] Address [address] [place] [address] Phone Care Team Providers Care Packer Denture Name Role Phone Vinny Mckinney MD Primary [...] high school, GED, job training, learning the Burkinan language, technical skills, or developing parenting skills)? [...] PARTIAL HEALTH SAFETY NET PARTIAL Care Teams Packer Denture Relationship Specialty Start Date End Date Vinny Mckinney MD [address] [place] [address] PCP - General Internal Medicine 06/11/24 Additional Source Comments The information contained in this document represents components of the legal health record. It is not the complete legal health record.[facility]
== END 2025-08-21 11:04 | disposition home or self-care (01) ==
LOC: HO.MRI 11:03
PROVIDERS: PCP Internal Medicine; Visit Provider Nurse Practitioner Family
DX: R70.0 Elevated erythrocyte sedimentation rate (principal); R79.82 Elevated C-reactive protein (CRP); R90.82 White matter disease, unspecified; R29.810 Facial weakness; R51.9 Headache, unspecified; I10 Essential (primary) hypertension; H81.10 Benign paroxysmal vertigo, unspecified ear
CPT/HCPCS: 70544; 70553; A9585

== ENCOUNTER → 2025-08-28 13:17 | Outpatient (REF) | payer OTHER, SELFPAY ==
--- OUTSIDE RECORDS SUMMARY | 2025-02-02 09:00 | XMS_ITS ---
Author Organization [facility] Address [address] [place] [phone] Care Team Providers Care Superintendent Radio Communications Name Role Phone Vinny Mckinney Primary Care Provider Nicole Hale [phone] Encounters Encounter Location Date Provider Diagnosis [address] [address] 02/02/2025 Nicole Hale Plan Of Treatment No Information Progress Notes * Ambar GAGNONDOB:1970 (54 yo F)Acc No.[id number]:02/02/2025 Progress Notes Patient: Ambar LUKE Provider: Madison Hale DPM :1970 A ge:54 Y S ex:Female Date:02/02/2025 Address:[address] [place], [place] [phone] Pcp:Vinny Mckinney Subjective: * Chief Complaints: * [...] 0 02/02/2025 Generated for Huong richards/Dileep/Prasannaitting on: 03:20 PM EST
--- OUTSIDE RECORDS SUMMARY | 2025-08-28 15:21 | XMS_ITS | Patient Health Record ---
Author Organization [facility] Address [address] [facility] [address] [place] [address] Care Team Providers Care Certified Credit Counselor Name Role Phone Faye, Kartik Primary Care Provider YAMILKA Patterson Unavailable [phone] Allergies Allergen (clinical drug ingredient) Drug/Non Drug Allergy documented on EMR Reaction Allergy Type Onset Date Status angiotensin-converting enzyme inhibitor (FN) SHALONDA Inhibitors anaphylaxis Drug Allergy Acti ve lisinopril Lisinopril anaphylaxis Drug Allergy Act isabel Reason For Referral No Information Medications Medication SIG (Take, Route, Frequency, Duration) Notes Start Date End Date Status Fluorouracil 5 % 1 application Vehicle Refinisher ally once a day; Duration: 90 days [...] Problem Acquired hammer toe of right foot (3020524963783 105) Other hammer toe(s) (acquired), right foot (M20.41) Active confirmed Problem Acquired hammer toe of left foot (2542683167662 103) Other hammer toe(s) (acquired), left foot (M20.42) Active confirmed Vital Signs Heart Rate 68 /min 06/19/2025 Temperature 97.0 degrees Fahrenheit 06/19/2025 Respiratory Rate 12 /min 06/19/2025 Height 5ft 6in in 06/19/2025 Weight 220.2 lbs 06/19/2025 BMI 35.54 kg/m2 06/19/2025 Encounters Encounter Location Date Provider Diagnosis [facility] [address] [address] 12/26/2024 YAMILKA MENDOZA Other hammer toe(s) (acquired), right foot M20.41 ; Other hammer toe(s) (acquired), left foot M20.42 ; Callus of toe L84 ; Dystrophic nail L60.3 ; Pain in right foot M79.671 ; Pain in left foot M79.672 ; Capsulitis of metatarsophalangeal (MTP) joint of left foot M77.52 and Capsulitis of metatarsophalangeal (MTP) joint of right foot M77.51 [facility] [address] [address] 03/15/2025 YAMILKA MENDOZA Other hammer toe(s) (acquired), right foot M20.41 ; Other hammer toe(s) (acquired), left foot M20.42 ; Capsulitis of metatarsophalangeal (MTP) joint of left foot M77.52 ; Capsulitis of metatarsophalangeal (MTP) joint of right foot M77.51 ; Pain in left foot M79.672 ; Pain in right foot M79.671 ; Callus of toe L84 and Dystrophic nail L60.3 [facility] [address] [address] 06/19/2025 YAMILKA MENDOZA Other hammer toe(s) (acquired), right foot M20.41 ; Other hammer toe(s) (acquired), left foot M20.42 ; Capsulitis of metatarsophalangeal (MTP) joint of left foot M77.52 ; Capsulitis of metatarsophalangeal (MTP) joint of right foot M77.51 ; Pain in left foot M79.672 ; Pain in right foot M79.671 ; Callus of toe L84 and Dystrophic nail L60.3 [facility] [address] [address] 12/05/2024 YAMILKA MENDOZA Assessments Encounter Date Diagnosis [...] biomechanical pressures. Using a #15 blade and snailer, I debrided the right and left 2nd [...] biomechanical pressures. Using a #15 blade and snailer, I debrided the right and left 2nd [...] biomechanical pressures. Using a #15 blade and snailer, I debrided the right and left 2nd [...] Date Coverage End Date [employer] [address] [place] [address] [phone] [id number] Ambar Gagnon Self - patient is the [...]
--- OUTSIDE RECORDS SUMMARY | 2025-08-28 15:21 | XMS_ITS | Clinical Summary ---
Author Organization [facility] Address [address] [place] [address] Phone Care Team Providers Care Tobacco Drummer Name Role Phone Vinny Mckinney MD Primary [...] high school, GED, job training, learning the Haitian language, technical skills, or developing parenting skills)? [...] PARTIAL HEALTH SAFETY NET PARTIAL Care Teams Tobacco Drummer Relationship Specialty Start Date End Date Vinny Mckinney MD [address] [place] [id number] PCP - General Internal Medicine 06/11/24 Additional Source Comments The information contained in this document represents components of the legal health record. It is not the complete legal health record.[facility]
--- OUTSIDE RECORDS SUMMARY | 2025-08-28 15:21 | XMS_ITS | Clinical Summary ---
Author Organization [address] [place] [address] [place] [address] Phone Care Team Providers Care Foil Operator Name Role Phone Marci Reyez MD Primary Care Provider [phone] Allergies No known active allergies Medications No [...] this topic Insurance DIVERSIFIED ADMINISTRATORS Care Teams Foil Operator Relationship Specialty Start Date End Date Marci Reyez MD [address] [place] [address] Dr Jose Guadalupe [address] [place], [place] PCP - General 07/18/08
--- OUTSIDE RECORDS SUMMARY | 2025-08-28 15:21 | XMS_ITS | Patient Health Record ---
Author Organization [facility] Address [address] [place] [address] Care Team Providers Care Quality Internship Name Role Phone Vinny Mckinney Primary Care Provider Nicole Hale [phone] Reason For Referral No Information Encounters Encounter Location Date Provider Diagnosis [facility] [address] [place] [address] 12/05/2024 Nicole Hale Plan Of Treatment No Information Insurance Providers Payer Name Payer Address Payer Phone Subscriber Number Group Number Insured Name Patient Relationship to Insured Coverage Start Date [facility]age End [facility] [address] [place] [phone] [id number] Ambar Gagnon Self - patient is the insured
== END ==
LOC: HO.SL 13:17
PROVIDERS: PCP Internal Medicine; Visit Provider Nurse Practitioner Family
DX: R06.83 Snoring (principal); G47.19 Other hypersomnia
CPT/HCPCS: 95806

== ENCOUNTER → 2025-08-28 13:30 | Outpatient (BNV) | payer OTHER, SELFPAY | PROVIDERS: PCP Internal Medicine; Visit Provider Psychiatry & Neurology Neurology | DX: R40.0 Somnolence (principal); R06.83 Snoring | CPT/HCPCS: 95806 ==

== ENCOUNTER 2025-08-30 10:46 | Outpatient (AMB) | payer OTHER, SELFPAY ==
--- OUTSIDE RECORDS SUMMARY | 2025-02-02 09:00 | XMS_ITS ---
Author Organization [facility] Address [address] [place] [address] Care Team Providers Care Boiler Tester Name Role Phone Vinny Mckinney Primary Care Provider Nicole Hale [phone] Encounters Encounter Location Date Provider Diagnosis [address] [address] 02/02/2025 Nicole Hale Plan Of Treatment No Information Progress Notes * Ambar GAGNONDOB:1970 (54 yo F)Acc No.[id number]:02/02/2025 Progress Notes Patient: Ambar LUKE Provider: Madison Hale DPM :1970 A ge:54 Y S ex:Female Date:02/02/2025 Address:[address] [place], [place] [address] Pcp:Vinny Mckinney Subjective: * Chief Complaints: * [...] 0 02/02/2025 Generated for Huong richards/Dileep/Prasannaitting on: 12:09 PM EST
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
[2025-08-30 10:54] VITALS: BP 126/65; PULSE 76; BMI 37.8
--- OUTSIDE RECORDS SUMMARY | 2025-08-30 12:09 | XMS_ITS | Clinical Summary ---
Author Organization [facility] Address [address] [place] [phone] Phone Care Team Providers Care Microstrategy Bi Developer Name Role Phone Vinny Mckinney MD Primary [...] PARTIAL HEALTH SAFETY NET PARTIAL Care Teams Microstrategy Bi Developer Relationship Specialty Start Date End Date Vniny Mckinney MD [address] [place] [id number] PCP - General Internal Medicine 06/11/24 Additional Source Comments The information contained in this document represents components of the legal health record. It is not the complete legal health record.[facility]
--- OUTSIDE RECORDS SUMMARY | 2025-08-30 12:09 | XMS_ITS | Patient Health Record ---
Author Organization [facility] Address [address] [facility] [address] [place] [address] Care Team Providers Care Bone Char Operator Name Role Phone Faye, Kartik Primary Care Provider YAMILKA Patterson Unavailable [phone] Allergies Allergen (clinical drug ingredient) Drug/Non Drug Allergy documented on EMR Reaction Allergy Type Onset Date Status angiotensin-converting enzyme inhibitor (FN) SHALONDA Inhibitors anaphylaxis Drug Allergy Acti ve lisinopril Lisinopril anaphylaxis Drug Allergy Act isabel Reason For Referral No Information Medications Medication SIG (Take, Route, Frequency, Duration) Notes Start Date End Date Status Fluorouracil 5 % 1 application Director Of Preclinical Research ally once a day; Duration: 90 days [...] Problem Acquired hammer toe of right foot (1259824032645 105) Other hammer toe(s) (acquired), right foot (M20.41) Active confirmed Problem Acquired hammer toe of left foot (5959392796771 103) Other hammer toe(s) (acquired), left foot (M20.42) Active confirmed Vital Signs Heart Rate 68 /min 06/19/2025 Temperature 97.0 degrees Fahrenheit 06/19/2025 Respiratory Rate 12 /min 06/19/2025 Height 5ft 6in in 06/19/2025 Weight 220.2 lbs 06/19/2025 BMI 35.54 kg/m2 06/19/2025 Encounters Encounter Location Date Provider Diagnosis [facility] [address] [address] 12/26/2024 YAMILKA MENDOZA Other hammer toe(s) (acquired), right foot M20.41 ; Other hammer toe(s) (acquired), left foot M20.42 ; Callus of toe L84 ; Dystrophic nail L60.3 ; Pain in right foot M79.671 ; Pain in left foot M79.672 ; Capsulitis of metatarsophalangeal (MTP) joint of left foot M77.52 and Capsulitis of metatarsophalangeal (MTP) joint of right foot M77.51 [facility] [address] [address] 03/15/2025 YAMILKA MENDOZA Other hammer toe(s) (acquired), right foot M20.41 ; Other hammer toe(s) (acquired), left foot M20.42 ; Capsulitis of metatarsophalangeal (MTP) joint of left foot M77.52 ; Capsulitis of metatarsophalangeal (MTP) joint of right foot M77.51 ; Pain in left foot M79.672 ; Pain in right foot M79.671 ; Callus of toe L84 and Dystrophic nail L60.3 [facility] [address] [address] 06/19/2025 YAMILKA MENDOZA Other hammer toe(s) (acquired), right foot M20.41 ; Other hammer toe(s) (acquired), left foot M20.42 ; Capsulitis of metatarsophalangeal (MTP) joint of left foot M77.52 ; Capsulitis of metatarsophalangeal (MTP) joint of right foot M77.51 ; Pain in left foot M79.672 ; Pain in right foot M79.671 ; Callus of toe L84 and Dystrophic nail L60.3 [facility] [address] [address] 12/05/2024 YAMILKA MENDOZA Assessments Encounter Date Diagnosis [...] biomechanical pressures. Using a #15 blade and cutter and paster press clippings, I debrided the right and left 2nd [...] biomechanical pressures. Using a #15 blade and cutter and paster press clippings, I debrided the right and left 2nd [...] biomechanical pressures. Using a #15 blade and cutter and paster press clippings, I debrided the right and left 2nd [...] Date Coverage End Date [employer] [address] [address] [place] [address] [id number] Ambar Gagnon Self - patient is the [...]
--- OUTSIDE RECORDS SUMMARY | 2025-08-30 12:09 | XMS_ITS | Patient Health Record ---
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 [address] [place] [address] 12/05/2024 Nicole Hale Plan Of Treatment No Information Insurance Providers Payer Name Payer Address Payer Phone Subscriber Number Group Number Insured Name Patient Relationship to Insured Coverage Start Date [facility]age End Date [facility] [address] [place] [address] [id number] Ambar Gagnon Self - patient is the insured
--- OUTSIDE RECORDS SUMMARY | 2025-08-30 12:09 | XMS_ITS | Clinical Summary ---
Author Organization [address] [place] [address] [place] [phone] Phone Care Team Providers Care International Marketing Intern Name Role Phone Marci Reyez MD Primary Care Provider [phone] Allergies No known active allergies Medications No [...] this topic Insurance [employer] Care Teams International Marketing Intern Relationship Specialty Start Date End Date Marci Reyez MD [address] [place] [address] Dr Jose Guadalupe [address] [place], [place] PCP - General 07/18/08
== END 2025-08-30 11:16 | disposition home or self-care (01) ==
LOC: HO.HGS 10:46
PROVIDERS: PCP Internal Medicine
DX: Z98.890 Other specified postprocedural states (principal)
CPT/HCPCS: 99214